=== PATIENT | female | born 1945 | race Caucasian/White ===

== ENCOUNTER → 2017-02-13 | Outpatient (CLI) | payer MEDICARE, OTHER ==
[~2017-02-13] MED LIST: REGADENOSON 0.4 MG/5 ML SYRINGE IV ONE
--- NOTE | 2017-02-13 12:34 | EST ---
DATE OF SERVICE: 02/13/2017 AGE: 72Y SEX: F HT: 5'2" WT: 145 lbs. Protocol Guy: Other: Lexiscan Cardiolite Stage: Dur. of Exercise: *Heart Rate Blood Pressure *Rest: 71 Rest: 130/48 * *Max. Achieved: 99 Maximum BP: 119/50 85% PMHR: 125 100% PMHR: 147 *METS: INDICATIONS: Short of breath and chest pain. MEDICATIONS: Metformin, Januvia. Patient was given Lexiscan injection over a period of 15 seconds. Peak heart rate of 99 was achieved. Maximum blood pressure of 119/50 mmHg was noted. Resting EKG shows normal sinus rhythm with normal NH interval and QRS duration and normal ST-T waves. No ST segment depression suggestive of ischemia is noted. The results of the nuclear study will follow.
--- NOTE | 2017-02-13 13:02 | NM ---
EXAMINATION TYPE: NM stress lexiscan cardiolite DATE OF EXAM: 02/13/2017 10:31 AM COMPARISON: NONE HISTORY: 72-year-old female with chest pain and shortness of breath TECHNIQUE: After the intravenous administration of 9.99 mCi Tc 99m Sestamibi - Cardiolite resting SP ECT images acquired 45 minutes post injection. The patient received 0.4mg Lexiscan, 26.7 mCi Tc 99m Sestamibi - Stress images obtained [address] injection FINDINGS: Review of stress and rest SPECT images demonstrates no distinct perfusion abnormality. Gated analysi s shows normal wall motion with an estimated left ventricular ejection fraction of 63 %. TID is calc ulated at 0.94, within normal limits. IMPRESSION: No scintigraphic evidence for reversible ischemia.
== END | disposition home or self-care (01) ==
LOC: RADNMMAIN 08:01
PROVIDERS: ATTEND Internal Medicine
DX: R07.9 Chest pain, unspecified (principal); R06.02 Shortness of breath
CPT/HCPCS: 93017; 78452; A9500; J2785

== ENCOUNTER → 2018-02-22 | Outpatient (CLI) | payer MEDICARE ==
--- NOTE | 2018-02-23 14:09 | ECHOF ---
Referral Reason:CHF I50 MEASUREMENTS -------- HEIGHT: 157.5 cm WEIGHT: 65.8 kg BP: IVSd: 1.2 cm (0.6 - 1.1) LVIDd: 3.4 cm (3.9 - 5.3) LVPWd: 1.4 cm (0.6 - 1.1) IVSs: 1.7 cm LVIDs: 1.6 cm LVPWs: 1.8 cm LAESV Index (A-L): 18.99 ml/m Ao Diam: 3.4 cm (2.0 - 3.7) AV Cusp: 2.3 cm (1.5 - 2.6) LA Diam: 3.4 cm (2.7 - 3.8) MV EXCURSION: 11.844 mm (> 18.000) MV EF SLOPE: 56 mm/s (70 - 150) EPSS: 0.3 cm MV E Linus: 0.69 m/s MV DecT: 221 ms MV A Linus: 0.86 m/s MV E/A Ratio: 0.79 RAP: 5.00 mmHg RVSP: 29.25 mmHg FINDINGS -------- Sinus rhythm. This was a technically good study. The left ventricular size is normal. There is mild concentric left ventricular hypertrophy. Overa ll left ventricular systolic function is normal with, an EF between 55 - 60 %. The right ventricle is normal in size and function. The left atrium is normal in size. RA appears enlarged. The aortic valve is trileaflet, and appears structurally normal. No aortic stenosis or regurgitation. Mild mitral annular calcification present. Mild mitral regurgitation is present. Moderate tricuspid regurgitation present. Right ventricular systolic pressure is normal at < 35 mmH g. The right ventricular systolic pressure, as measured by Doppler, is 29.25mmHg. There is no pulmonic regurgitation present. The aortic root size is normal. Normal inferior vena cava with normal inspiratory collapse consistent with estimated right atrial pre ssure of 5 mmHg. There is no pericardial effusion. CONCLUSIONS -------- 1. Sinus rhythm. 2. This was a technically good study. 3. The left ventricular size is normal. 4. There is mild concentric left ventricular hypertrophy. 5. Overall left ventricular systolic function is normal with, an EF between 55 - 60 %. 6. The left atrium is normal in size. 7. RA appears enlarged. 8. The aortic valve is trileaflet, and appears structurally normal. No aortic stenosis or regurgitati on. 9. Mild mitral annular calcification present. 10. Mild mitral regurgitation is present. 11. Moderate tricuspid regurgitation present. 12. Right ventricular systolic pressure is normal at < 35 mmHg. 13. There is no pulmonic regurgitation present. 14. The aortic root size is normal. 15. Normal inferior vena cava with normal inspiratory collapse consistent with estimated right atrial pressure of 5 mmHg. 16. There is no pericardial effusion. PRICING ACTUARY: Reyna Martin RDCS
== END | disposition home or self-care (01) ==
LOC: RADECHMAIN 13:19
PROVIDERS: ATTEND Internal Medicine
DX: I08.1 Rheumatic disorders of both mitral and tricuspid valves (principal); I50.9 Heart failure, unspecified
CPT/HCPCS: 93306

== ENCOUNTER 2019-02-26 21:29 | Emergency (ER) | payer MEDICARE, OTHER ==
[2019-02-26 21:56] VITALS: BP 122/67; PULSE 80; RESP 18; TEMP 98.3
[2019-02-26] MEDS ORDERED: FLUORESCEIN STRIPS 1 MG STRIP LEFT EYE ONE (22:00)
[2019-02-26] MEDS ORDERED: PROPARACAINE 0.5% OPHTH DROPS 15 ML BTL LEFT EYE STA (22:00)
--- NOTE | 2019-02-26 22:57 | ED ---
Eye Problem HPI - General Chief complaint: Eye Problems Stated complaint: Eye injury Time Seen by Provider: 02/26/19 22:11 Source: patient, family Mode of arrival: ambulatory Limitations: no limitations - History of Present Illness Initial comments: This is a 74-year-old female with a history of retinal pathology she believes macular degeneration who states she was working in her garden today when she was stuck by sharply to the right eye. She's been having tearing and drainage from the eye since then she denies any over blurry vision or other injury. She states she has been rubbing it a lot since the injury. No other modifying factors. MD chief complaint: eye pain, eye injury - Related Data Home Medications Medication Instructions Recorded Confirmed Aspirin EC [Ecotrin Low Dose] 81 mg PO HS 02/26/19 02/26/19 Cyanocobalamin (Vitamin B-12) 1,000 mcg PO DAILY 02/26/19 02/26/19 [Vitamin B-12] Dulaglutide [Trulicity] 0.75 mg SQ WE 02/26/19 02/26/19 Fluticasone/Salmeterol [Advair 1 inhalation PO BID PRN 02/26/19 02/26/19 500-50 Diskus] Garlic 1 tab PO DAILY 02/26/19 02/26/19 Insulin Detemir (Levemir) [Levemir] 8 unit SQ BID 02/26/19 02/26/19 Magnesium 200 mg PO DAILY 02/26/19 02/26/19 Montelukast [Singulair] 10 mg PO HS 02/26/19 02/26/19 Vitamin E 1,000 unit PO DAILY 02/26/19 02/26/19 [place] Drops 20 drops PO DAILY PRN 02/26/19 metFORMIN HCL 1,000 mg PO BID 02/26/19 02/26/19 Previous Rx's Medication Instructions Recorded Ketorolac 0.5% Ophth Soln [Acular 1 drops RIGHT EYE QID PRN #3 ml 02/26/19 0.5%] Sulfacetamide 10% Ophth Soln 2 drops RIGHT EYE Q8H #3 ml 02/26/19 [Bleph-10] Allergies Allergy/AdvReac Type Severity Reaction Status Date / Time diphenhydramine AdvReac Hallucinati Verified 02/26/19 22:39 [From Benadryl] ons Review of Systems ROS Statement: Those systems with pertinent positive or pertinent negative responses have been documented in the HPI. ROS Other: All systems not noted in ROS Statement are negative. Past Medical History Past Medical History: Asthma, Diabetes Mellitus Additional Past Medical History / Comment(s): eye problems History of Any Multi-Drug Resistant Organisms: None Reported Past Surgical History: Joint Replacement, Orthopedic Surgery Past Psychological History: No Psychological Hx Reported Smoking Status: Former smoker Past Alcohol Use History: Occasional Past Drug Use History: None Reported General Exam - General Exam Comments Initial Comments: This is a well-developed well-nourished awake alert oriented 3 female Limitations: no limitations General appearance: alert, anxious Head exam: Present: atraumatic, normocephalic, normal inspection Eye exam: Present: PERRL, EOMI, other (Patient does have arcus senilis bilaterally examination the right reveals very faint conjunctival injection no gross deformity seen over the cornea no foreign body seen no foreign bodies under lids.) ENT exam: Present: normal exam Neck exam: Present: normal inspection, full ROM Course Vital Signs 02/26/19 21:53 Temperature 98.3 F Pulse Rate 80 Respiratory 18 Rate Blood Pressure 122/67 O2 Sat by Pulse 97 Oximetry Procedures - Procedures Initial comment: I did instill 2 drops of proparacaine in the patient's right eye. I did put fluorescein in the right eye. Examination under Wood lamp reveals very minimal uptake in the mid upper cornea. No foreign body seen. Examination under slit- lamp revealed no evidence of hyphema anterior chamber appears be clear. Medical Decision Making - Medical Decision Making No further workup is indicated this time patient be placed on appropriate medications. She is follow-up with her doctor return when necessary Disposition Clinical Impression: Corneal abrasion, right Disposition: HOME SELF-CARE Condition: Good Instructions (If sedation given, give patient instructions): Corneal Abrasion (DC) Prescriptions: Ketorolac 0.5% Ophth Soln [Acular 0.5%] 1 drops RIGHT EYE QID PRN #3 ml PRN Reason: Pain Sulfacetamide 10% Ophth Soln [Bleph-10] 2 drops RIGHT EYE Q8H #3 ml Is patient prescribed a controlled substance at d/c from ED?: No Referrals: Viki Sweet MD [Primary Care Provider] - 1-2 days
== END 2019-02-26 23:07 | disposition home or self-care (01) ==
LOC: EC 21:29
DX: S05.01XA Injury of conjunctiva and corneal abrasion without foreign body, right eye, initial encounter (principal); J45.909 Unspecified asthma, uncomplicated; E11.9 Type 2 diabetes mellitus without complications; Z79.4 Long term (current) use of insulin; Z79.82 Long term (current) use of aspirin; Z79.899 Other long term (current) drug therapy; Z88.8 Allergy status to other drugs, medicaments and biological substances; Z87.891 Personal history of nicotine dependence; X58.XXXA Exposure to other specified factors, initial encounter
CPT/HCPCS: 99283

== ENCOUNTER 2019-09-03 18:03 | Emergency (ER) | payer MEDICARE, OTHER ==
[2019-09-03] MEDS ORDERED: methylPREDNISolone SOD SUCCI 125 MG/2 ML VIAL IV STA (18:36)
--- NOTE | 2019-09-03 18:55 | ED ---
General Adult HPI - General Source: patient Mode of arrival: ambulatory Limitations: no limitations <Cat Gonzalez - Last Filed: 09/04/19 01:44> <Ashley Mneendez - Last Filed: 09/05/19 14:30> - General Chief complaint: Shortness of Breath Stated complaint: Cough Time Seen by Provider: 09/03/19 18:20 - History of Present Illness Initial comments: 74-year-old female patient presents to the emergency department today for evaluation of cough and shortness of breath. Coughing since . States initially she was coughing up white sputum. Patient states today the cough is turned painful and dry. She denies any fevers with this she has been chilled. She is reporting upper abdominal pain and discomfort while coughing. She is also reporting right upper back pain. She denies any nasal congestion, ear pain, or sore throat. Does have a history of asthma, did do 2 nebulizer breathing treatments today without relief. Has been taking Tessalon Perles given to her by her physician on Thursday. She denies any leg pain or swelling. Denies any recent travel. Patient denies any recent rash, nausea, vomiting, diarrhea, constipation, back pain, numbness, tingling, dizziness, weakness, hematuria, dysuria, urinary urgency, urinary frequency, headache, visual changes, or any other complaints. (Cat Gonzalez) - Related Data Home Medications Medication Instructions Recorded Confirmed Aspirin EC [Ecotrin Low Dose] 81 mg PO HS 02/26/19 02/26/19 Cyanocobalamin (Vitamin B-12) 1,000 mcg PO DAILY 02/26/19 02/26/19 [Vitamin B-12] Dulaglutide [Trulicity] 0.75 mg SQ WE 02/26/19 02/26/19 Fluticasone/Salmeterol [Advair 1 inhalation PO BID PRN 02/26/19 02/26/19 500-50 Diskus] Garlic 1 tab PO DAILY 02/26/19 02/26/19 Insulin Detemir (Levemir) [Levemir] 8 unit SQ BID 02/26/19 02/26/19 Magnesium 200 mg PO DAILY 02/26/19 02/26/19 Montelukast [Singulair] 10 mg PO HS 02/26/19 02/26/19 Vitamin E 1,000 unit PO DAILY 02/26/19 02/26/19 [place] Drops 20 drops PO DAILY PRN 02/26/19 metFORMIN HCL 1,000 mg PO BID 02/26/19 02/26/19 Previous Rx's Medication Instructions Recorded Ketorolac 0.5% Ophth Soln [Acular 1 drops RIGHT EYE QID PRN #3 ml 02/26/19 0.5%] Sulfacetamide 10% Ophth Soln 2 drops RIGHT EYE Q8H #3 ml 02/26/19 [Bleph-10] Ipratropium-Albuterol Nebulize 3 ml INHALATION Q4H PRN #30 neb 09/03/19 [Duoneb 0.5 mg-3 mg/3 ml Soln] guaiFENesin-DM 600/30MG [Mucinex 1 each PO Q12HR #10 tab.er.12h 09/03/19 Dm] predniSONE 50 mg PO DAILY #5 tablet 09/03/19 Allergies Allergy/AdvReac Type Severity Reaction Status Date / Time diphenhydramine AdvReac Hallucinati Verified 02/26/19 22:39 [From Benadryl] ons antihistamines AdvReac Hallucinati Uncoded 09/03/19 18:19 ons Review of Systems ROS Other: All systems not noted in ROS Statement are negative. <Cat Gonzalez - Last Filed: 09/04/19 01:44> ROS Other: All systems not noted in ROS Statement are negative. <Ashley Menendez - Last Filed: 09/05/19 14:30> ROS Statement: Those systems with pertinent positive or pertinent negative responses have been documented in the HPI. Past Medical History Past Medical History: Asthma, Diabetes Mellitus Additional Past Medical History / Comment(s): eye problems History of Any Multi-Drug Resistant Organisms: None Reported Past Surgical History: Joint Replacement, Orthopedic Surgery Additional Past Surgical History / Comment(s): 2 knee replacement Past Psychological History: No Psychological Hx Reported Smoking Status: Former smoker Past Alcohol Use History: Occasional Past Drug Use History: None Reported <Cat Gonzalez - Last Filed: 09/04/19 01:44> General Exam Limitations: no limitations General appearance: alert, in no apparent distress, other (This is a well- developed, well-nourished elderly female patient in no acute distress. Vital signs upon presentation are temperature 98.2F, pulse 84, respirations 18, blood pressure 156/82, pulse ox 97% on room air.) Eye exam: Present: normal appearance, PERRL, EOMI. Absent: scleral icterus, conjunctival injection, periorbital swelling ENT exam: Present: normal exam, normal oropharynx, mucous membranes moist Respiratory exam: Present: normal lung sounds bilaterally. Absent: respiratory distress, wheezes, rales, rhonchi, stridor Cardiovascular Exam: Present: regular rate, normal rhythm, normal heart sounds. Absent: systolic murmur, diastolic murmur, rubs, gallop, clicks GI/Abdominal exam: Present: soft, normal bowel sounds. Absent: distended, tenderness, guarding, rebound, rigid Neurological exam: Present: alert, oriented X3, CN II-XII intact Psychiatric exam: Present: normal affect, normal mood Skin exam: Present: warm, dry, intact, normal color. Absent: rash <Cat Gonzalez - Last Filed: 09/04/19 01:44> Course Vital Signs 09/03/19 09/03/19 09/03/19 18:16 18:43 19:18 Temperature 98.2 F Pulse Rate 84 71 Respiratory 18 18 19 Rate Blood Pressure 156/82 139/60 O2 Sat by Pulse 97 96 Oximetry 09/03/19 09/03/19 20:23 21:08 Temperature 97.8 F Pulse Rate 69 81 Respiratory 18 19 Rate Blood Pressure 120/59 144/75 O2 Sat by Pulse 99 97 Oximetry EKG Findings - EKG Comments: EKG Findings:: EKG obtained at 1856 shows normal sinus rhythm with a ventricular rate is 77, VT interval 162, QRS duration 92, QT 370, QTC 418. No evidence of ST elevation or depression. <Cat Gonzalez - Last Filed: 09/04/19 01:44> Medical Decision Making - Lab Data Result diagrams: 09/03/19 19:05 09/03/19 19:05 - Radiology Data Radiology results: report reviewed, image reviewed <Cat Gonzalez - Last Filed: 09/04/19 01:44> - Lab Data Result diagrams: 09/03/19 19:05 09/03/19 19:05 <Ashley Menendez - Last Filed: 09/05/19 14:30> - Medical Decision Making 74-year-old female patient presents to the emergency department today for evalu ation of cough worsening symptoms . Physical examination reveals clear equal lung sounds. Vital signs are reassuring with oxygen saturation 99%. Chest x-ray showed no acute cardiopulmonary process. Labs came back and did have elevated d-dimer. CT angiography of the chest was obtained and showed inflammatory changes but no evidence for pulmonary embolism. I did discuss findings and results with the patient. We'll treat for acute bronchitis with steroid burst and Mucinex DM. She is instructed to follow-up with her primary care physician for recheck in 1-2 days. Return parameters were discussed in detail. She verbalizes understanding and agrees with this plan. (Cat Gonzalez) I was available for consultation in the emergency department. The history and physical exam were done by the midlevel provider. I was consulted for this patients care. I reviewed the case with the midlevel provider and based on their presentation of the patient, I agree with the assessment, medical decision making and plan of care as documented. Chart was dictated using [employer] dictation software. Attempts were made to correct any dictation errors however some typographical errors may persist. (Ashley Menendez) - Lab Data Lab Results 09/03/19 09/03/19 09/03/19 Range/Units 19:05 19:05 19:05 WBC 4.5 (3.8-10.6) k/uL RBC 4.14 (3.80-5.40) m/uL Hgb 11.8 (11.4-16.0) gm/dL Hct 35.9 (34.0-46.0) % MCV 86.8 (80.0-100.0) fL MCH 28.5 (25.0-35.0) pg MCHC 32.8 (31.0-37.0) g/dL RDW 15.5 (11.5-15.5) % Plt Count 262 (150-450) k/uL Neutrophils % 48 % Lymphocytes % 34 % Monocytes % 9 % Eosinophils % 5 % Basophils % 1 % Neutrophils # 2.2 (1.3-7.7) k/uL Lymphocytes # 1.6 (1.0-4.8) k/uL Monocytes # 0.4 (0-1.0) k/uL Eosinophils # 0.2 (0-0.7) k/uL Basophils # 0.0 (0-0.2) k/uL PT (9.0-12.0) sec INR (<1.2) APTT (22.0-30.0) sec D-Dimer (<0.60) mg/L FEU Sodium 138 (137-145) mmol/L Potassium 3.6 (3.5-5.1) mmol/L Chloride 108 H (98-107) mmol/L Carbon Dioxide 23 (22-30) mmol/L Anion Gap 7 mmol/L BUN 12 (7-17) mg/dL Creatinine 0.80 (0.52-1.04) mg/dL Est GFR (CKD-EPI)AfAm 84 (>60 ml/min/1.73 sqM) Est GFR (CKD-EPI)NonAf 73 (>60 ml/min/1.73 sqM) Glucose 109 H (74-99) mg/dL Calcium 8.6 (8.4-10.2) mg/dL Total Bilirubin 0.4 (0.2-1.3) mg/dL AST 29 (14-36) U/L ALT 18 (4-34) U/L Alkaline Phosphatase 88 (38-126) U/L Troponin I <0.012 (0.000-0.034) ng/mL Total Protein 6.4 (6.3-8.2) g/dL Albumin 3.7 (3.5-5.0) g/dL 09/03/19 Range/Units 19:30 WBC (3.8-10.6) k/uL RBC (3.80-5.40) m/uL Hgb (11.4-16.0) gm/dL Hct (34.0-46.0) % MCV (80.0-100.0) fL MCH (25.0-35.0) pg MCHC (31.0-37.0) g/dL RDW (11.5-15.5) % Plt Count (150-450) k/uL Neutrophils % % Lymphocytes % % Monocytes % % Eosinophils % % Basophils % % Neutrophils # (1.3-7.7) k/uL Lymphocytes # (1.0-4.8) k/uL Monocytes # (0-1.0) k/uL Eosinophils # (0-0.7) k/uL Basophils # (0-0.2) k/uL PT 9.6 (9.0-12.0) sec INR 0.9 (<1.2) APTT 23.5 (22.0-30.0) sec D-Dimer 0.66 H (<0.60) mg/L FEU Sodium (137-145) mmol/L Potassium (3.5-5.1) mmol/L Chloride (98-107) mmol/L Carbon Dioxide (22-30) mmol/L Anion Gap mmol/L BUN (7-17) mg/dL Creatinine (0.52-1.04) mg/dL Est GFR (CKD-EPI)AfAm (>60 ml/min/1.73 sqM) Est GFR (CKD-EPI)NonAf (>60 ml/min/1.73 sqM) Glucose (74-99) mg/dL Calcium (8.4-10.2) mg/dL Total Bilirubin (0.2-1.3) mg/dL AST (14-36) U/L ALT (4-34) U/L Alkaline Phosphatase (38-126) U/L Troponin I (0.000-0.034) ng/mL Total Protein (6.3-8.2) g/dL Albumin (3.5-5.0) g/dL - Radiology Data Two-view x-ray of the chest is obtained. Report was reviewed in its entirety. Impression by Dr. Barnes shows no active cardiopulmonary disease. Normal heart. CT angiography of the chest is obtained. Report was reviewed in its entirety. Impression by Dr. Barnes shows no evidence of pulmonary embolism. Mild bronchial adenopathy consistent with inflammatory disease. Minimal pulmonary fibrotic changes. No suspicious pulmonary mass. (Cat Gonzalez) Disposition Is patient prescribed a controlled substance at d/c from ED?: No Time of Disposition: 20:52 <Cat Gonzalez - Last Filed: 09/04/19 01:44> <Ashley Menendez - Last Filed: 09/05/19 14:30> Clinical Impression: Acute bronchitis Disposition: HOME SELF-CARE Condition: Good Instructions (If sedation given, give patient instructions): Acute Bronchitis (ED) Additional Instructions: Increase fluids. Increase breathing treatments every 4 hours. Take medications as directed. Follow-up through primary care physician for recheck in 1-2 days. Prescriptions: Ipratropium-Albuterol Nebulize [Duoneb 0.5 mg-3 mg/3 ml Soln] 3 ml INHALATION Q4H PRN #30 neb PRN Reason: Wheezing/Shortness of breath guaiFENesin-DM 600/30MG [Mucinex Dm] 1 each PO Q12HR #10 tab.er.12h predniSONE 50 mg PO DAILY #5 tablet Referrals: Viki Sweet MD [Primary Care Provider] - 1-2 days
[2019-09-03 19:22] LABS: Basophils % (A) 1 %; Eosinophils # (A) 0.2 k/uL (0-0.7); Eosinophils % (A) 5 %; HCT 35.9 % (34.0-46.0); HGB 11.8 gm/dL (11.4-16.0); Lymphocytes # (A) 1.6 k/uL (1.0-4.8); Lymphocytes % (A) 34 %; MCH 28.5 pg (25.0-35.0); MCHC 32.8 g/dL (31.0-37.0); MCV 86.8 fL (80.0-100.0); Monocytes # (A) 0.4 k/uL (0-1.0); Monocytes % (A) 9 %; Neutrophils # (A) 2.2 k/uL (1.3-7.7); Neutrophils % (A) 48 %; Platelet Count 262 k/uL (150-450); RBC 4.14 m/uL (3.80-5.40); RDW 15.5 % (11.5-15.5); WBC 4.5 k/uL (3.8-10.6)
[2019-09-03 19:37] LABS: Albumin 3.7 g/dL (3.5-5.0); Calcium 8.6 mg/dL (8.4-10.2); Potassium 3.6 mmol/L (3.5-5.1); Total Bilirubin 0.4 mg/dL (0.2-1.3); Total Protein 6.4 g/dL (6.3-8.2)
--- NOTE | 2019-09-03 19:44 | XR ---
EXAMINATION TYPE: XR chest 2V DATE OF EXAM: 09/03/2019 COMPARISON: NONE HISTORY: Cough TECHNIQUE: 2 views FINDINGS: Heart is normal. Lungs are clear of infiltrate. There is no pleural effusion. Thoracic aort a is atheromatous. Bony thorax is intact. IMPRESSION: No active cardiopulmonary disease. Normal heart.
[2019-09-03 19:59] LABS: INR 0.9 (<1.2); Partial Thromboplastin Time 23.5 sec (22.0-30.0); Prothrombin Time 9.6 sec (9.0-12.0)
[2019-09-03 20:00] LABS: D-Dimer 0.66 mg/L FEU (<0.60)
--- NOTE | 2019-09-03 20:30 | CT ---
EXAMINATION TYPE: CT chest angio for PE DATE OF EXAM: 09/03/2019 COMPARISON: None HISTORY: Chest pain, cough causing SOB. Pt hx asthma. CT DLP: 305.9 mGycm Automated exposure control for dose reduction was used. CONTRAST: Performed with IV Contrast, patient injected with 100 mL of Isovue 370. Multiple axial sections were obtained from the thoracic inlet to the diaphragm with intravenous contr ast. There are 3-D post processed images. Heart size is fairly normal. There is no pericardial effusion. There is no pleural effusion. There is mild subsegmental atelectasis and scarring in both lungs. There is a minimal subpleural reticular in filtrate in the superior segment right lower lobe. There is normal contrast opacification of the pulmonary arteries. There are a few bilateral bronchial lymph nodes that measure up to 1.5 cm. I see no filling defects in the pulmonary arteries. There is no mediastinal adenopathy. Thoracic aorta shows no aneurysm or dissection. The bony thorax appears in tact. IMPRESSION: No evidence of pulmonary embolism. Mild bronchial adenopathy consistent with inflammatory disease. Mi nimal pulmonary fibrotic changes. No suspicious pulmonary mass.
[2019-09-03 21:10] VITALS: BP 144/75; PULSE 81; RESP 19; TEMP 97.8
== END 2019-09-03 21:11 | disposition home or self-care (01) ==
LOC: EC 18:03
DX: J20.9 Acute bronchitis, unspecified (principal); R79.1 Abnormal coagulation profile; R93.89 Abnormal findings on diagnostic imaging of other specified body structures; R10.10 Upper abdominal pain, unspecified; M54.6 Pain in thoracic spine; J45.909 Unspecified asthma, uncomplicated; E11.9 Type 2 diabetes mellitus without complications; Z87.891 Personal history of nicotine dependence; Z88.8 Allergy status to other drugs, medicaments and biological substances; Z79.4 Long term (current) use of insulin; Z79.82 Long term (current) use of aspirin; Z79.899 Other long term (current) drug therapy; Z96.659 Presence of unspecified artificial knee joint
CPT/HCPCS: 36415; 93005; 85379; 80053; 84484; 85025; 85610; 85730; 71046; 71275; 99285; 96374; J2930; Q9967

== ENCOUNTER → 2019-10-25 | Outpatient (CLI) | payer MEDICARE, OTHER ==
[2019-10-25 17:27] LABS: HCT 40.2 % (34.0-46.0); HGB 12.7 gm/dL (11.4-16.0); MCH 28.4 pg (25.0-35.0); MCHC 31.5 g/dL (31.0-37.0); MCV 90.1 fL (80.0-100.0); Platelet Count 379 k/uL (150-450); RBC 4.46 m/uL (3.80-5.40); RDW 15.6 % (11.5-15.5); WBC 9.5 k/uL (3.8-10.6)
== END | disposition home or self-care (01) ==
LOC: LABPAT 16:42
PROVIDERS: ATTEND Surgery
DX: Z01.812 Encounter for preprocedural laboratory examination (principal)
CPT/HCPCS: 85027

== ENCOUNTER 2019-10-26 11:22 | Inpatient (IN) | payer MEDICARE, OTHER ==
[2019-10-24 18:06] VITALS: BMI 27.8
[~2019-10-26 11:22] MED LIST changes: +DEXAMETHASONE SOD PHOSPHATE 10 MG/ML 1 ML VIAL IV ONE; +HEPARIN SODIUM,PORCINE 5,000 UNIT/ML 1 ML VIAL SQ ONE; +HYDROmorphone 0.5 MG/0.5 ML SYRINGE IVP PRN; +LIDOCAINE 1% 20 ML VIAL (10MG/ML) FOR IV START INTRADERMA PRN; +MIDAZOLAM 2 MG/2 ML VIAL IV PRN; +ONDANSETRON 4 MG/2 ML VIAL IVP ONE; -REGADENOSON 0.4 MG/5 ML SYRINGE IV ONE; +SCOPOLAMINE 1.5MG/72HR PATCH TRANSDERM ONE
[2019-10-26] MEDS: LACTATED RINGERS 1,000 ML IV SCH (12:09)
[2019-10-26 12:12] LABS: Glucose,Whole Blood 113 mg/dL (75-99)
--- NOTE | 2019-10-26 12:57 | P.ANPRN ---
Procedure Note - Anesthesia - Nerve Block Performed Bilateral Rectus Abdominis Single Time Out Performed: Yes Date of Procedure: 10/26/19 Procedure Start Time: 12:28 Procedure Stop Time: 12:43 Location of Patient: PreOp Indication: Acute Post-Operative Pain, Requested by Surgeon Specifically requested for management of pain by DrVitor: Long Akhtar Sedation Type: Sedate with meaningful contact maintained Preparation: Sterile Prep Position: Supine Needle Types: Pajunk Needle Gauge: 21 Ultrasound used to visualize needle placement: Yes Ultrasound used to observe medication spread: Yes Injectate: 0.5% Ropivacaine (see comment for volume) Adjunct: Epinephrine (see comment for dilution ratio) Blood Aspirated: No Pain Paresthesia on Injection Noted: No Resistance on Injection: Normal Image Stored and Saved: Yes (Medicine injected with direct visualization under ultrasound guidance) Events: Uneventful and Well Tolerated (0.5% Ropiviane 20cc 1% Lidocaine with Epi 5cc Dexamethasone 4mg)
--- NOTE | 2019-10-26 15:00 | P.GSHP ---
History of Present Illness H&P Date: 10/26/19 Chief Complaint: Umbilical hernia 74-year-old female who's of umbilical hernia. Patient rents today for laparoscopic robotic-assisted repair. Patient also has a small abdominal wall mass in the left lower quadrant. This will be laparoscopically examined.. Past Medical History Past Medical History: Asthma, Cancer, CVA/TIA, Diabetes Mellitus, Eye Disorder, Osteoarthritis (OA) Additional Past Medical History / Comment(s): Hx cervical cancer 30 yrs ago, laser surgery. Diabetic retinopathy. Hx CVA - undiagnosed 2 yrs ago. Poor balance. History of Any Multi-Drug Resistant Organisms: None Reported Past Surgical History: Joint Replacement Additional Past Surgical History / Comment(s): Bilateral knee replacements. Past Anesthesia/Blood Transfusion Reactions: No Reported Reaction, Motion Sickness Past Psychological History: Anxiety Smoking Status: Former smoker Past Alcohol Use History: Occasional Additional Past Alcohol Use History / Comment(s): Quit smoking in 1972. Past Drug Use History: None Reported - Past Family History Sister(s) Family Medical History: Cancer Additional Family Medical History / Comment(s): Breast cancer. Medications and Allergies Home Medications Medication Instructions Recorded Confirmed Type Aspirin EC [Ecotrin Low Dose] 81 mg PO HS 02/26/19 10/26/19 History metFORMIN HCL 1,000 mg PO BID 02/26/19 10/26/19 History Cholecalciferol [Vitamin D3 (25 1,000 unit PO DAILY 10/24/19 10/26/19 History Mcg = 1000 Iu)] Dulaglutide [Trulicity] 1.5 mg SQ TU 10/24/19 10/26/19 History Ferrous Sulfate [Feosol] 325 mg PO DAILY 10/24/19 10/26/19 History Insulin Glargine [Lantus] 10 unit SQ BID 10/24/19 10/26/19 History [place]-3 Fatty Acids/Fish Oil [Fish 1 each PO DAILY 10/24/19 10/26/19 History Oil 1,000 mg Softgel] Tiotropium 18 Mcg/Puff [Spiriva] 1 puff INHALATION QAM 10/24/19 10/26/19 History Allergies Allergy/AdvReac Type Severity Reaction Status Date / Time diphenhydramine AdvReac Hallucinati Verified 10/26/19 11:55 [From Benadryl] ons antihistamines AdvReac Hallucinati Uncoded 10/26/19 11:55 ons Surgical - Exam Vital Signs Temp Pulse Resp BP Pulse Ox 98.4 F 95 18 119/71 97 10/26/19 12:00 10/26/19 12:00 10/26/19 12:00 10/26/19 12:00 10/26/19 12:00 - General well developed, well nourished, no distress - Eyes PERRL - ENT normal pinna - Neck no masses - Respiratory normal expansion - Cardiovascular Rhythm: regular - Abdomen Abdomen: soft, non tender Hernia: umbilical Results - Labs Abnormal Lab Results - Last 24 Hours (Table) 10/26/19 Range/Units 12:10 POC Glucose (mg/dL) 113 H (75-99) mg/dL Assessment and Plan Assessment: Umbilical hernia. We'll perform laparoscopic robotic-assisted repair.
[2019-10-26] MEDS ORDERED: fentaNYL (PF) 50 MCG/ML 2 ML AMP ONE (15:06)
[2019-10-26] MEDS ORDERED: ROPIVACAINE 5 MG/ML 30 ML VIAL ONE (15:06)
[2019-10-26] MEDS ORDERED: SUCCINYLCHOLINE CHLORIDE 100 MG/5 ML SYR IV ONE (15:06)
[2019-10-26] MEDS ORDERED: ROCURONIUM BROMIDE 10 MG/ML 10 ML VIAL IV ONE (15:06)
[2019-10-26] MEDS ORDERED: GLYCOPYRROLATE 0.2 MG/ML 2 ML VIAL ONE (15:06)
[2019-10-26] MEDS ORDERED: NEOSTIGMINE 1 MG/ML 10 ML VIAL ONE (15:06)
[2019-10-26] MEDS ORDERED: PROPOFOL 10 MG/ML 20 ML VIAL IV ONE (15:06)
[2019-10-26] MEDS ORDERED: LIDOCAINE 1% INJ 10MG/ML (20 ML MDV) ONE (15:06)
[2019-10-26] MEDS ORDERED: KETAMINE 10 MG/ML 20 ML VIAL ONE (15:06)
[2019-10-26] MEDS ORDERED: BUPIVACAINE (PF) 0.25% 30 ML VIAL SQ ONE (15:31)
--- NOTE | 2019-10-26 16:25 | P.OP ---
Date of Procedure: 10/26/19 Preoperative Diagnosis: Incarcerated umbilical hernia Postoperative Diagnosis: Periumbilical hernia Left lower quadrant abdominal wall lipoma Procedure(s) Performed: Laparoscopic robotic-assisted repair of incarcerated we'll hernia Excision of left lower quadrant lipoma Partial omentectomy Anesthesia: OZIEL Surgeon: Long Akhtar Estimated Blood Loss (ml): 10 Pathology: other (Abdominal wall lipoma, omentum) Condition: stable Disposition: PACU Description of Procedure: TThe patient was placed on the operating table in the supine position. He received general anesthesia. His abdomen was prepped and draped usual fashion. Using a 5 mm optical trocar under direct visualization the peritoneal cavity was entered in the left upper quadrant. The abdomen was then insufflated. The laparoscope was placed back into the perineal cavity. Next a 8 mm robotic trocar was placed in the left lower quadrant and a 12 mm robotic trocar was placed in the left lateral position. The original 5 mm trocar was exchanged for a 8 mm robotic trocar. The patient's placed in the left side up position. And the patient was undocked the robot. The umbilical hernia was visualized. Using hook cautery the peritoneum over the umbilical hernia was excised. The incarcerated omentum was dissected free and sent to pathology. The fascial opening was repaired using 0V LOC suture. Next a piece of 11 cm round ventral light ST mesh was placed into the. Cavity and secured with 2 OV lock suture. The patient had a 2 cm lipoma located left lower quadrant. The skin was incised over this lipoma was dissected using cautery and sent to pathology. The lipoma was examined. There is no evidence of any hernia in the area. The specimens of pathology. The patient was undocked the robot. The needles were retrieved. The fascia of the 12 mm trocar site was closed with 0 Ethibond suture. Skin was closed interrupted 3-0 Monocryl suture. Dermabond dressings was applied. Patient top procedure well and was sent to recovery room stable condition.
[2019-10-26] MEDS ORDERED: LACTATED RINGERS 1,000 ML IV ONE ×2 (16:49→18:36)
[2019-10-26] MEDS ORDERED: ONDANSETRON 4 MG/2 ML VIAL IVP ONE (17:00)
[2019-10-26 17:07] LABS: Glucose,Whole Blood 199 mg/dL (75-99)
[2019-10-26] MEDS ORDERED: NALOXONE 0.4 MG/ML 1 ML VIAL IV PRN (18:36)
[2019-10-26] MEDS ORDERED: HYDROmorphone 0.5 MG/0.5 ML SYRINGE IVP PRN (18:36)
[2019-10-26] MEDS ORDERED: HYDROcodone/APAP 5-325MG 1 EACH TAB PO PRN (18:36)
[2019-10-26] MEDS: ONDANSETRON 4 MG/2 ML VIAL IVP PRN (20:36)
[2019-10-26 20:54] LABS: Glucose,Whole Blood 213 mg/dL (75-99)
[2019-10-27] MEDS: LACTATED RINGERS 1,000 ML IV SCH (02:09)
[2019-10-27] MEDS: ONDANSETRON 4 MG/2 ML VIAL IVP PRN (04:22)
[2019-10-27 06:50] LABS: Glucose,Whole Blood 175 mg/dL (75-99)
[2019-10-27] MEDS ORDERED: METOCLOPRAMIDE 5 MG/ML 2 ML VIAL IVP PRN (08:08)
[2019-10-27] MEDS ORDERED: ONDANSETRON 4 MG/2 ML VIAL IVP STA (08:08)
[2019-10-27] MEDS ORDERED: KETOROLAC 30 MG/ML 1 ML VIAL IVP PRN (08:42)
[2019-10-27] MEDS ORDERED: SODIUM CHLORIDE 0.9% 500 ML 500 ML IV ONE (10:25)
[2019-10-27] MEDS: ENOXAPARIN 40 MG/0.4 ML SYRINGE SQ SCH (10:26)
--- NOTE | 2019-10-27 10:27 | P.PN ---
Subjective Progress Note Date: 10/27/19 CHIEF COMPLAINT: Incarcerated umbilical hernia HISTORY OF PRESENT ILLNESS: 74-year-old female who underwent laparoscopic robotic-assisted repair of incarcerated umbilical hernia, excision of left lower quadrant lipoma, and partial omentectomy with Dr. Akhtar. Postop day #1. Patient examined this morning the bedside. Patient states she had a rough night. She states she has been nauseous and dry heaving. Pain is controlled at the time of examination. PHYSICAL EXAM: VITAL SIGNS: Reviewed. GENERAL: Well-developed in no acute distress. HEENT: No sclera icterus. Extraocular movements grossly intact. Moist buccal mucosa. Head is atraumatic, normocephalic. ABDOMEN: Soft. Nondistended. Surgical sites clean and intact without drainage. Appropriate surgical tenderness. NEUROLOGIC: Alert and oriented. Cranial nerves II through XII grossly intact. ASSESSMENT: 1. Incarcerated umbilical hernia, s/p laparoscopic robotic-assisted repair of incarcerated umbilical hernia, excision of left lower quadrant lipoma, and partial omentectomy PLAN: Continue Zofran. Add scheduled Reglan Continue IV fluids 500cc fluid bolus Pain control. Avoid narcotics if possible as it may be contributing to patient's nausea. Will trial low-dose Toradol Decrease diet to clear liquids Nurse practitioner note has been reviewed by physician. Signing provider agrees with the documented findings, assessment, and plan of care. Objective - Vital Signs Vital signs: Vital Signs Temp 98.3 F 10/27/19 07:00 Pulse 110 H 10/27/19 08:15 Resp 18 10/27/19 08:15 BP 160/94 10/27/19 08:15 Pulse Ox 95 10/27/19 08:15 Intake & Output 10/26/19 10/27/19 10/27/19 18:59 06:59 18:59 Intake Total 1400 300 Output Total 5 Balance 1395 300 Weight 67.9 kg Intake: IV 1400 Intake, IV Titration 300 Amount Lactated Ringers 1,000 ml 300 @ 100 mls/hr IV .Q10H ONE Rx#:[id number] Output: Estimated Blood Loss 5 Other: Voiding Method Bedside Commode Bedside Commode # Voids 4 4 - Labs Labs: Abnormal Lab Results - Last 24 Hours (Table) 10/26/19 10/26/19 10/26/19 Range/Units 12:10 17:03 20:52 POC Glucose (mg/dL) 113 H 199 H 213 H (75-99) mg/dL 10/27/19 Range/Units 06:48 POC Glucose (mg/dL) 175 H (75-99) mg/dL
[2019-10-27] MEDS: SODIUM CHLORIDE 0.9% 1,000 ML IV SCH ×2 (10:39→21:40)
[2019-10-27 11:29] LABS: Basophils # (A) 0.1 k/uL (0-0.2); Basophils % (A) 1 %; Eosinophils # (A) 0.1 k/uL (0-0.7); Eosinophils % (A) 1 %; HCT 35.4 % (34.0-46.0); HGB 11.6 gm/dL (11.4-16.0); Lymphocytes # (A) 1.1 k/uL (1.0-4.8); Lymphocytes % (A) 11 %; MCH 29.3 pg (25.0-35.0); MCHC 32.7 g/dL (31.0-37.0); MCV 89.5 fL (80.0-100.0); Mean Platelet Volume 7.7; Monocytes # (A) 0.6 k/uL (0-1.0); Monocytes % (A) 6 %; Neutrophils # (A) 8.2 k/uL (1.3-7.7); Neutrophils % (A) 81 %; Platelet Count 318 k/uL (150-450); RBC 3.95 m/uL (3.80-5.40); RDW 15.7 % (11.5-15.5); WBC 10.1 k/uL (3.8-10.6)
[2019-10-27 11:31] LABS: Glucose,Whole Blood 209 mg/dL (75-99)
[2019-10-27 11:47] LABS: African American GFR (CKD) >90 (>60 ml/min/1.73 sqM); Anion Gap 7 mmol/L; Blood Urea Nitrogen 12 mg/dL (7-17); Calcium 8.4 mg/dL (8.4-10.2); Carbon Dioxide 26 mmol/L (22-30); Chloride 99 mmol/L (98-107); Glucose 191 mg/dL (74-99); Magnesium 1.7 mg/dL (1.6-2.3); Non-African American GFR(CKD) 89 (>60 ml/min/1.73 sqM); Sodium 132 mmol/L (137-145)
[2019-10-27] MEDS: METOCLOPRAMIDE 5 MG/ML 2 ML VIAL IVP SCH ×2 (14:47→18:18)
[2019-10-27] MEDS: MAGNESIUM SULFATE-D5W PMX 1 GM in DEXTROSE/WATER 1 100ML.BAG IVPB SCH ×2 (14:48→16:01)
[2019-10-27 17:33] LABS: Glucose,Whole Blood 168 mg/dL (75-99)
[2019-10-28] MEDS: METOCLOPRAMIDE 5 MG/ML 2 ML VIAL IVP SCH ×2 (01:01→05:23)
[2019-10-28 07:01] LABS: Glucose,Whole Blood 120 mg/dL (75-99)
[2019-10-28 07:13] VITALS: BP 125/67; RESP 16; TEMP 97.8
[2019-10-28 08:34] VITALS: PULSE 100
[2019-10-28 08:51] LABS: Basophils % (A) 0 %; Eosinophils # (A) 0.2 k/uL (0-0.7); Eosinophils % (A) 3 %; HCT 37.7 % (34.0-46.0); HGB 12.2 gm/dL (11.4-16.0); Lymphocytes # (A) 1.3 k/uL (1.0-4.8); Lymphocytes % (A) 18 %; MCH 28.9 pg (25.0-35.0); MCHC 32.3 g/dL (31.0-37.0); MCV 89.3 fL (80.0-100.0); Mean Platelet Volume 7.2; Monocytes # (A) 0.5 k/uL (0-1.0); Monocytes % (A) 7 %; Neutrophils # (A) 5.4 k/uL (1.3-7.7); Neutrophils % (A) 71 %; Platelet Count 358 k/uL (150-450); RBC 4.22 m/uL (3.80-5.40); RDW 15.3 % (11.5-15.5); WBC 7.6 k/uL (3.8-10.6)
[2019-10-28 09:08] LABS: African American GFR (CKD) >90 (>60 ml/min/1.73 sqM); Anion Gap 7 mmol/L; Blood Urea Nitrogen 8 mg/dL (7-17); Calcium 8.4 mg/dL (8.4-10.2); Carbon Dioxide 27 mmol/L (22-30); Chloride 105 mmol/L (98-107); Glucose 121 mg/dL (74-99); Non-African American GFR(CKD) 86 (>60 ml/min/1.73 sqM); Potassium 3.9 mmol/L (3.5-5.1); Sodium 139 mmol/L (137-145)
[2019-10-28] MEDS: ENOXAPARIN 40 MG/0.4 ML SYRINGE SQ SCH (09:25)
--- NOTE | 2019-10-28 10:37 | P.DS ---
Providers Date of admission: 10/28/19 09:51 Expected date of discharge: 10/28/19 Attending physician: Long Akhtar Primary care physician: Viki Sweet [facility] Course: 74-year-old female who underwent laparoscopic robotic-assisted repair of incarcerated umbilical hernia, excision of left lower quadrant lipoma, and partial omentectomy with Dr. Akhtar. Patient was admitted postop early secondary to nausea and dry heaves. Patient received IV hydration and antiemetics. Her nausea and vomiting has resolved. Her pain is controlled on oral medications. She is tolerating diet. Vital signs stable. She is stable for discharge home today. Please see EMR for further hospital course details. DC Diagnosis: 1. Incarcerated umbilical hernia, s/p laparoscopic robotic-assisted repair of incarcerated umbilical hernia, excision of left lower quadrant lipoma, and partial omentectomy Nurse practitioner note has been reviewed by physician. Signing provider agrees with the documented findings, assessment, and plan of care. Patient Condition at Discharge: Stable Plan - Discharge Summary Discharge Rx Participant: Yes New Discharge Prescriptions: New Docusate [Colace] 100 mg PO BID #20 capsule HYDROcodone/APAP 5-325MG [Dubois 5-325] 1 tab PO Q6HR PRN #10 tab PRN Reason: Pain No Action metFORMIN HCL 1,000 mg PO BID Aspirin EC [Ecotrin Low Dose] 81 mg PO HS Tiotropium 18 Mcg/Puff [Spiriva] 1 puff INHALATION QAM Insulin Glargine [Lantus] 10 unit SQ BID Ferrous Sulfate [Feosol] 325 mg PO DAILY Cholecalciferol [Vitamin D3 (25 Mcg = 1000 Iu)] 1,000 unit PO DAILY [place]-3 Fatty Acids/Fish Oil [Fish Oil 1,000 mg Softgel] 1 each PO DAILY Dulaglutide [Trulicity] 1.5 mg SQ TU Discharge Medication List Aspirin EC [Ecotrin Low Dose] 81 mg PO HS 02/26/19 [History] metFORMIN HCL 1,000 mg PO BID 02/26/19 [History] Cholecalciferol [Vitamin D3 (25 Mcg = 1000 Iu)] 1,000 unit PO DAILY 10/24/19 [History] Dulaglutide [Trulicity] 1.5 mg SQ TU 10/24/19 [History] Ferrous Sulfate [Feosol] 325 mg PO DAILY 02/03/20 [History] Insulin Glargine [Lantus] 10 unit SQ BID 10/24/19 [History] [place]-3 Fatty Acids/Fish Oil [Fish Oil 1,000 mg Softgel] 1 each PO DAILY 10/24/19 [History] Tiotropium 18 Mcg/Puff [Spiriva] 1 puff INHALATION QAM 10/24/19 [History] Docusate [Colace] 100 mg PO BID #20 capsule 10/26/19 [Rx] HYDROcodone/APAP 5-325MG [Dubois 5-325] 1 tab PO Q6HR PRN #10 tab 10/26/19 [Rx] Follow up Appointment(s)/Referral(s): Long Akhtar MD [STAFF PHYSICIAN] - 11/03/19 2:10 pm Patient Instructions/Handouts: *Surgery [facility] - (Anesthesia) Discharge Instructions Outpatient Surgery, Umbilical Hernia Repair (DC) Activity/Diet/Wound Care/Special Instructions: No driving while taking [place] No lifting over 10 pounds You may shower. No soaking or tub baths Very light activity until you are reevaluated at your follow up appointment with your surgeon
[2019-10-28 11:23] LABS: Glucose,Whole Blood 126 mg/dL (75-99)
== END 2019-10-28 12:36 | disposition home or self-care (01) | DRG 354 ==
LOC: OR 11:22 → 4SSUR 16:02 → OR 10-28 09:58
PROVIDERS: ADMIT Surgery; ATTEND Surgery
PROC: 0DBU4ZZ Excision of Omentum, Percutaneous Endoscopic Approach (ICD-10-PCS; 2019-10-26)
PROC: 8E0W4CZ Robotic Assisted Procedure of Trunk Region, Percutaneous Endoscopic Approach (ICD-10-PCS; 2019-10-26)
PROC: 0JB83ZZ Excision of Abdomen Subcutaneous Tissue and Fascia, Percutaneous Approach (ICD-10-PCS; 2019-10-26)
PROC: 0WQF4ZZ Repair Abdominal Wall, Percutaneous Endoscopic Approach (ICD-10-PCS; principal; 2019-10-26 13:00)
DX: K91.0 Vomiting following gastrointestinal surgery (principal); K42.0 Umbilical hernia with obstruction, without gangrene; J45.909 Unspecified asthma, uncomplicated; M19.90 Unspecified osteoarthritis, unspecified site; E11.319 Type 2 diabetes mellitus with unspecified diabetic retinopathy without macular edema; Z96.653 Presence of artificial knee joint, bilateral; F41.9 Anxiety disorder, unspecified; D17.9 Benign lipomatous neoplasm, unspecified; Z79.4 Long term (current) use of insulin; Z79.82 Long term (current) use of aspirin; Z79.899 Other long term (current) drug therapy; Z85.41 Personal history of malignant neoplasm of cervix uteri; Z86.73 Personal history of transient ischemic attack (TIA), and cerebral infarction without residual deficits; Z98.890 Other specified postprocedural states; Z87.891 Personal history of nicotine dependence; Z88.8 Allergy status to other drugs, medicaments and biological substances; Z80.3 Family history of malignant neoplasm of breast
CPT/HCPCS: 64488; 80048; 83735; 85025; 88304; 88305

== ENCOUNTER 2021-05-19 11:59 | Observation (INO) | payer MEDICARE, OTHER ==
--- NOTE | 2021-05-19 12:27 | ED ---
General Adult HPI - General Chief complaint: Shortness of Breath Stated complaint: SOB Time Seen by Provider: 05/19/21 12:10 Source: patient, RN notes reviewed Mode of arrival: wheelchair Limitations: no limitations - History of Present Illness Initial comments: Patient is a pleasant 76-year-old female presenting to the emergency department with concerns for difficulty breathing. Onset of symptoms was this morning. Patient has had some mild leg swelling that is slightly worse than normal. Patient has chronic cough, unchanged. Dyspnea does worsen with exertion. No chest pain. No fevers. Patient did take her asthma inhaler without improvement of symptoms. - Related Data Home Medications Medication Instructions Recorded Confirmed Aspirin EC [Ecotrin Low Dose] 81 mg PO HS 02/26/19 05/19/21 metFORMIN HCL [Glucophage] 1,000 mg PO BID 02/26/19 05/19/21 Cholecalciferol [Vitamin D3 (25 1,000 unit PO DAILY 10/24/19 05/19/21 Mcg = 1000 Iu)] Insulin Glargine [Lantus] 17 unit SQ HS 10/24/19 05/19/21 Budesonide/Formoterol Fumarate 2 puff INHALATION RT-BID 05/19/21 05/19/21 [Symbicort 160-4.5 Mcg Inhaler] Cyanocobalamin (Vitamin B-12) 1,000 mcg PO DAILY 05/19/21 05/19/21 [Vitamin B-12] Diclofenac Sodium Gel [Voltaren 4 gm TOPICAL QID PRN 05/19/21 05/19/21 Gel] Furosemide [Lasix] 20 mg PO DAILY PRN 05/19/21 05/19/21 Indomethacin [Indocin] 25 mg PO BID PRN 05/19/21 05/19/21 Ipratropium-Albuterol Nebulize 3 ml INHALATION RT-DAILY PRN 05/19/21 05/19/21 [Duoneb 0.5 mg-3 mg/3 ml Soln] Sertraline [Zoloft] 25 mg PO HS 05/19/21 05/19/21 Timolol 0.5% Ophth Soln [Timoptic 1 drop BOTH EYES BID 05/19/21 05/19/21 0.5% Ophth Soln] glipiZIDE [Glucotrol] 2.5 mg PO AC-BID 05/19/21 05/19/21 Allergies Allergy/AdvReac Type Severity Reaction Status Date / Time diphenhydramine AdvReac Hallucinati Verified 05/19/21 13:46 [From Divya] ons antihistamines AdvReac Hallucinati Uncoded 05/19/21 12:07 ons Review of Systems ROS Statement: Those systems with pertinent positive or pertinent negative responses have been documented in the HPI. ROS Other: All systems not noted in ROS Statement are negative. Constitutional: Denies: fever Eyes: Denies: eye pain ENT: Denies: ear pain Respiratory: Reports: as per HPI, cough, dyspnea Cardiovascular: Reports: dyspnea on exertion. Denies: chest pain, edema Endocrine: Denies: fatigue Gastrointestinal: Denies: abdominal pain Genitourinary: Denies: dysuria Musculoskeletal: Denies: back pain Skin: Denies: rash Neurological: Denies: weakness Psychiatric: Denies: anxiety Past Medical History Past Medical History: Asthma, Cancer, CVA/TIA, Diabetes Mellitus, Eye Disorder, Osteoarthritis (OA) Additional Past Medical History / Comment(s): Hx cervical cancer 30 yrs ago, laser surgery. Diabetic retinopathy. Hx CVA - undiagnosed 2 yrs ago. Poor ba stephanie. History of Any Multi-Drug Resistant Organisms: None Reported Past Surgical History: Joint Replacement Additional Past Surgical History / Comment(s): Bilateral knee replacements. Past Anesthesia/Blood Transfusion Reactions: No Reported Reaction, Motion Sickness Past Psychological History: Anxiety Past Alcohol Use History: Occasional Past Drug Use History: None Reported - Past Family History Sister(s) Family Medical History: Cancer Additional Family Medical History / Comment(s): Breast cancer. General Exam Limitations: no limitations General appearance: alert, in no apparent distress Head exam: Present: normocephalic Eye exam: Present: normal appearance ENT exam: Present: normal oropharynx Neck exam: Present: normal inspection Respiratory exam: Present: normal lung sounds bilaterally Cardiovascular Exam: Present: regular rate, normal rhythm GI/Abdominal exam: Present: soft. Absent: tenderness Extremities exam: Present: pedal edema (+1 bilateral). Absent: calf tenderness Neurological exam: Present: alert Psychiatric exam: Present: normal affect, normal mood Skin exam: Present: normal color Course Vital Signs 05/19/21 05/19/21 05/19/21 12:05 12:14 14:31 Temperature 97.8 F 98.7 F Pulse Rate 68 68 Respiratory 18 20 18 Rate Blood Pressure 121/61 126/63 O2 Sat by Pulse 96 99 Oximetry 05/19/21 05/19/21 14:34 14:48 Temperature Pulse Rate 64 66 Respiratory Rate Blood Pressure O2 Sat by Pulse Oximetry EKG Findings - EKG Comments: EKG Findings:: Normal sinus rhythm with a rate of 65. VA 162. QRS 132. QT 426 . QTc 443. Normal axis. Right bundle branch block. No acute ST change. Medical Decision Making - Medical Decision Making Patient reevaluated and still having exertional dyspnea. Patient had reported great difficulty with going to the restroom while walking there. Case was discussed with Dr. Jack, who will admit covering hospital call. Patient also experienced some floaters while in the emergency department. Visual exam done. No evidence of retinal detachment. Symptoms have resolved. Case was also discussed with ophthalmology, Dr. Tavarez, who will consult. - Lab Data Result diagrams: 05/19/21 12:25 05/19/21 12:25 Lab Results 05/19/21 05/19/21 05/19/21 Range/Units 12:25 12:25 12:25 WBC 7.5 (3.8-10.6) k/uL RBC 4.03 (3.80-5.40) m/uL Hgb 12.7 (11.4-16.0) gm/dL Hct 38.3 (34.0-46.0) % MCV 95.1 (80.0-100.0) fL MCH 31.6 (25.0-35.0) pg MCHC 33.2 (31.0-37.0) g/dL RDW 14.5 (11.5-15.5) % Plt Count 314 (150-450) k/uL MPV 7.1 Neutrophils % 63 % Lymphocytes % 24 % Monocytes % 6 % Eosinophils % 5 % Basophils % 1 % Neutrophils # 4.7 (1.3-7.7) k/uL Lymphocytes # 1.8 (1.0-4.8) k/uL Monocytes # 0.4 (0-1.0) k/uL Eosinophils # 0.4 (0-0.7) k/uL Basophils # 0.1 (0-0.2) k/uL PT 9.7 (9.0-12.0) sec INR 0.9 (<1.2) APTT 24.8 (22.0-30.0) sec D-Dimer 0.84 H (<0.60) mg/L FEU Sodium 135 L (137-145) mmol/L Potassium 4.2 (3.5-5.1) mmol/L Chloride 104 (98-107) mmol/L Carbon Dioxide 23 (22-30) mmol/L Anion Gap 8 mmol/L BUN 17 (7-17) mg/dL Creatinine 0.68 (0.52-1.04) mg/dL Est GFR (CKD-EPI)AfAm >90 (>60 ml/min/1.73 sqM) Est GFR (CKD-EPI)NonAf 85 (>60 ml/min/1.73 sqM) Glucose 131 H (74-99) mg/dL Plasma Lactic Acid Juanito (0.7-2.0) mmol/L Calcium 9.1 (8.4-10.2) mg/dL Total Bilirubin 0.4 (0.2-1.3) mg/dL AST 28 (14-36) U/L ALT 14 (4-34) U/L Alkaline Phosphatase 87 (38-126) U/L Troponin I (0.000-0.034) ng/mL NT-Pro-B Natriuret Pep pg/mL Total Protein 6.0 L (6.3-8.2) g/dL Albumin 3.8 (3.5-5.0) g/dL Coronavirus (PCR) (Not Detectd) 05/19/21 05/19/21 05/19/21 Range/Units 12:25 12:25 12:25 WBC (3.8-10.6) k/uL RBC (3.80-5.40) m/uL Hgb (11.4-16.0) gm/dL Hct (34.0-46.0) % MCV (80.0-100.0) fL MCH (25.0-35.0) pg MCHC (31.0-37.0) g/dL RDW (11.5-15.5) % Plt Count (150-450) k/uL MPV Neutrophils % % Lymphocytes % % Monocytes % % Eosinophils % % Basophils % % Neutrophils # (1.3-7.7) k/uL Lymphocytes # (1.0-4.8) k/uL Monocytes # (0-1.0) k/uL Eosinophils # (0-0.7) k/uL Basophils # (0-0.2) k/uL PT (9.0-12.0) sec INR (<1.2) APTT (22.0-30.0) sec D-Dimer (<0.60) mg/L FEU Sodium (137-145) mmol/L Potassium (3.5-5.1) mmol/L Chloride (98-107) mmol/L Carbon Dioxide (22-30) mmol/L Anion Gap mmol/L BUN (7-17) mg/dL Creatinine (0.52-1.04) mg/dL Est GFR (CKD-EPI)AfAm (>60 ml/min/1.73 sqM) Est GFR (CKD-EPI)NonAf (>60 ml/min/1.73 sqM) Glucose (74-99) mg/dL Plasma Lactic Acid Juanito 1.0 (0.7-2.0) mmol/L Calcium (8.4-10.2) mg/dL Total Bilirubin (0.2-1.3) mg/dL AST (14-36) U/L ALT (4-34) U/L Alkaline Phosphatase (38-126) U/L Troponin I <0.012 (0.000-0.034) ng/mL NT-Pro-B Natriuret Pep pg/mL Total Protein (6.3-8.2) g/dL Albumin (3.5-5.0) g/dL Coronavirus (PCR) Not Detected (Not Detectd) 05/19/21 Range/Units 12:25 WBC (3.8-10.6) k/uL RBC (3.80-5.40) m/uL Hgb (11.4-16.0) gm/dL Hct (34.0-46.0) % MCV (80.0-100.0) fL MCH (25.0-35.0) pg MCHC (31.0-37.0) g/dL RDW (11.5-15.5) % Plt Count (150-450) k/uL MPV Neutrophils % % Lymphocytes % % Monocytes % % Eosinophils % % Basophils % % Neutrophils # (1.3-7.7) k/uL Lymphocytes # (1.0-4.8) k/uL Monocytes # (0-1.0) k/uL Eosinophils # (0-0.7) k/uL Basophils # (0-0.2) k/uL PT (9.0-12.0) sec INR (<1.2) APTT (22.0-30.0) sec D-Dimer (<0.60) mg/L FEU Sodium (137-145) mmol/L Potassium (3.5-5.1) mmol/L Chloride (98-107) mmol/L Carbon Dioxide (22-30) mmol/L Anion Gap mmol/L BUN (7-17) mg/dL Creatinine (0.52-1.04) mg/dL Est GFR (CKD-EPI)AfAm (>60 ml/min/1.73 sqM) Est GFR (CKD-EPI)NonAf (>60 ml/min/1.73 sqM) Glucose (74-99) mg/dL Plasma Lactic Acid Juanito (0.7-2.0) mmol/L Calcium (8.4-10.2) mg/dL Total Bilirubin (0.2-1.3) mg/dL AST (14-36) U/L ALT (4-34) U/L Alkaline Phosphatase (38-126) U/L Troponin I (0.000-0.034) ng/mL NT-Pro-B Natriuret Pep 248 pg/mL Total Protein (6.3-8.2) g/dL Albumin (3.5-5.0) g/dL Coronavirus (PCR) (Not Detectd) - Radiology Data Radiology results: report reviewed (CT chest negative for pulmonary embolism), image reviewed (Chest x-ray shows no acute process) Disposition Clinical Impression: Exertional dyspnea Disposition: ADMITTED IP TO THIS HOSP Is patient prescribed a controlled substance at d/c from ED?: No Referrals: Viki Sweet MD [Primary Care Provider] - 1-2 days Decision Time: 15:45
[2021-05-19 12:37] LABS: Basophils # (A) 0.1 k/uL (0-0.2); Basophils % (A) 1 %; Eosinophils # (A) 0.4 k/uL (0-0.7); Eosinophils % (A) 5 %; HCT 38.3 % (34.0-46.0); HGB 12.7 gm/dL (11.4-16.0); Lymphocytes # (A) 1.8 k/uL (1.0-4.8); Lymphocytes % (A) 24 %; MCH 31.6 pg (25.0-35.0); MCHC 33.2 g/dL (31.0-37.0); MCV 95.1 fL (80.0-100.0); Mean Platelet Volume 7.1; Monocytes # (A) 0.4 k/uL (0-1.0); Monocytes % (A) 6 %; Neutrophils # (A) 4.7 k/uL (1.3-7.7); Neutrophils % (A) 63 %; Platelet Count 314 k/uL (150-450); RBC 4.03 m/uL (3.80-5.40); RDW 14.5 % (11.5-15.5); WBC 7.5 k/uL (3.8-10.6)
--- NOTE | 2021-05-19 12:47 | XR ---
EXAMINATION TYPE: XR chest 2V DATE OF EXAM: 05/19/2021 COMPARISON: Chest x-ray 09/03/2019 HISTORY: Difficulty breathing, shortness of breath TECHNIQUE: Frontal and lateral views of the chest are obtained. FINDINGS: There is no focal air space opacity, pleural effusion, or pneumothorax seen. The cardiac silhouette size is within normal limits. Aorta is dense and the patient is rotated, there are overly ing leads The osseous structures are intact. Prominent lung volume could be indicative of underlying COPD. IMPRESSION: No acute cardiopulmonary process.
[2021-05-19 12:50] LABS: ALT 14 U/L (4-34); AST 28 U/L (14-36); African American GFR (CKD) >90 (>60 ml/min/1.73 sqM); Albumin 3.8 g/dL (3.5-5.0); Alkaline Phosphatase 87 U/L (38-126); Anion Gap 8 mmol/L; Blood Urea Nitrogen 17 mg/dL (7-17); Calcium 9.1 mg/dL (8.4-10.2); Carbon Dioxide 23 mmol/L (22-30); Chloride 104 mmol/L (98-107); Glucose 131 mg/dL (74-99); Non-African American GFR(CKD) 85 (>60 ml/min/1.73 sqM); Potassium 4.2 mmol/L (3.5-5.1); Sodium 135 mmol/L (137-145); Total Bilirubin 0.4 mg/dL (0.2-1.3)
[2021-05-19 12:53] LABS: INR 0.9 (<1.2); Partial Thromboplastin Time 24.8 sec (22.0-30.0); Prothrombin Time 9.7 sec (9.0-12.0)
--- NOTE | 2021-05-19 14:10 | CT ---
EXAMINATION TYPE: CT angio chest DATE OF EXAM: 05/19/2021 COMPARISON: CT chest 09/03/2019 HISTORY: dyspnea CT DLP: 305.6 mGycm Automated exposure control for dose reduction was used. CONTRAST: CTA scan of the thorax is performed with IV Contrast, patient injected with 100 mL of Isovue 370, pul monary embolism protocol. MIP images are created and reviewed. 3D reconstructed images are created on an independent workstation and reviewed. FINDINGS: LUNGS: The lungs are remarkable for patchy basilar density possibly related to dependent atelectatic change, there is no concerning parenchymal mass or nodule identified. There is no pleural effusion or pneumothorax seen. The tracheobronchial tree is patent. AORTA: No additional significant abnormality is seen. MEDIASTINUM: There is satisfactory enhancement of the pulmonary artery and its branches, there is no CT evidence for pulmonary embolism. There are no greater than 1 cm hilar or mediastinal lymph nodes. No pericardial effusion is seen. OTHER: There is thoracic spondylosis, degenerative disc disease. IMPRESSION: NO EVIDENT PULMONARY EMBOLUS.
[2021-05-19] MEDS ORDERED: IPRATROPIUM-ALBUTEROL 3 ML NEB INHALATION STA (14:22)
[2021-05-19] MEDS ORDERED: NITROGLYCERIN SL TABS 0.4 MG TAB SUBLINGUAL PRN (15:48)
[2021-05-19] MEDS ORDERED: NALOXONE 0.4 MG/ML 1 ML VIAL IV PRN (16:36)
[2021-05-19] MEDS ORDERED: FUROSEMIDE 20 MG TAB PO PRN (16:37)
--- NOTE | 2021-05-19 17:24 | P.HPIM ---
History of Present Illness H&P Date: 05/19/21 Chief Complaint: Dyspnea on exertion 76-year-old woman with medical history of hypertension, hyperlipidemia, diabetes type 2, mood disorder, asthma presented with dyspnea on exertion. Patient says that her dyspnea started this morning when she was on a walk, after returning home, she tried her rescue albuterol inhaler with no relief. Due to concerns over her dyspnea, she presented to the emergency room with the plan to get a nebulizer go home. However, she noted that even after the nebulizer she continued renal short of breath. She has no other associated symptoms including the denial of fevers, chills, nausea, vomiting, chest pain, palpitations, syncope, cough, abdominal pain, diarrhea, constipation, dysuria, dyschezia, numbness/weakness of extremities. Patient is afebrile 155/81, heart rate 97, 97% on 2 L of nasal cannula. CBC was unremarkable, d-dimer was mildly elevated at 0.84, chemistries demonstrated elevated glucose to 131, otherwise negative. Troponin and BNP were negative. Chest x-ray was clear. Computed tomography scan did not demonstrate any evidence of parenchymal pathology or pulmonary embolism. Review of Systems All Systems reviewed and pertinent positives and negatives noted in HPI, all other symptoms are negative Past Medical History Past Medical History: Asthma, Cancer, CVA/TIA, Diabetes Mellitus, Eye Disorder, Osteoarthritis (OA) Additional Past Medical History / Comment(s): Hx cervical cancer 30 yrs ago, laser surgery. Diabetic retinopathy. Hx CVA - undiagnosed 2 yrs ago. Poor balance. History of Any Multi-Drug Resistant Organisms: None Reported Past Surgical History: Joint Replacement Additional Past Surgical History / Comment(s): Bilateral knee replacements. Past Anesthesia/Blood Transfusion Reactions: No Reported Reaction, Motion Sickness Past Psychological History: Anxiety Past Alcohol Use History: Occasional Past Drug Use History: None Reported - Past Family History Sister(s) Family Medical History: Cancer Additional Family Medical History / Comment(s): Breast cancer. Medications and Allergies Home Medications Medication Instructions Recorded Confirmed Type Aspirin EC [Ecotrin Low Dose] 81 mg PO HS 02/26/19 05/19/21 History metFORMIN HCL [Glucophage] 1,000 mg PO BID 02/26/19 05/19/21 History Cholecalciferol [Vitamin D3 (25 1,000 unit PO DAILY 10/24/19 05/19/21 History Mcg = 1000 Iu)] Insulin Glargine [Lantus] 17 unit SQ HS 10/24/19 05/19/21 History Budesonide/Formoterol Fumarate 2 puff INHALATION RT-BID 05/19/21 05/19/21 History [Symbicort 160-4.5 Mcg Inhaler] Cyanocobalamin (Vitamin B-12) 1,000 mcg PO DAILY 05/19/21 05/19/21 History [Vitamin B-12] Diclofenac Sodium Gel [Voltaren 4 gm TOPICAL QID PRN 05/19/21 05/19/21 History Gel] Furosemide [Lasix] 20 mg PO DAILY PRN 05/19/21 05/19/21 History Indomethacin [Indocin] 25 mg PO BID PRN 05/19/21 05/19/21 History Ipratropium-Albuterol Nebulize 3 ml INHALATION RT-DAILY PRN 05/19/21 05/19/21 History [Duoneb 0.5 mg-3 mg/3 ml Soln] Sertraline [Zoloft] 25 mg PO HS 05/19/21 05/19/21 History Timolol 0.5% Ophth Soln [Timoptic 1 drop BOTH EYES BID 05/19/21 05/19/21 History 0.5% Ophth Soln] glipiZIDE [Glucotrol] 2.5 mg PO AC-BID 05/19/21 05/19/21 History Allergies Allergy/AdvReac Type Severity Reaction Status Date / Time diphenhydramine AdvReac Hallucinati Verified 05/19/21 13:46 [From Benadryl] ons antihistamines AdvReac Hallucinati Uncoded 05/19/21 12:07 ons Physical Exam Osteopathic Statement: *. No significant issues noted on an osteopathic structural exam other than those noted in the History and Physical/Consult. Vitals: Vital Signs Temp Pulse Pulse Resp BP BP Pulse Ox 05/19/21 17:06 98.7 F 97 18 155/81 96 05/19/21 16:56 98.0 F 70 17 122/72 97 05/19/21 14:48 66 05/19/21 14:34 64 05/19/21 14:31 98.7 F 68 18 126/63 99 05/19/21 12:14 20 05/19/21 12:05 97.8 F 68 18 121/61 96 Intake and Output 05/19/21 05/19/21 05/19/21 06:59 14:59 22:59 Other: Weight 68.039 kg Gen: awake, alert HEENT: normocephalic, atraumatic, good hearing acuity, moist mucous membranes Resp: Diminished air exchange, breathing comfortably with no accessory muscle u se, clear to auscultation bilaterally CVS: good distal perfusion x 4, regular rate and rhythm without murmurs GI: soft, NTTP, ND : no SPT, no CVAT, restrepo catheter not present MSK: no pitting edema, no clubbing Neuro: non-focal, moving all extremities Psych: cooperative, euthymic mood Results CBC & Chem 7: 05/19/21 12:25 05/19/21 12:25 Labs: Abnormal Lab Results - Last 24 Hours (Table) 05/19/21 05/19/21 Range/Units 12:25 12:25 D-Dimer 0.84 H (<0.60) mg/L FEU Sodium 135 L (137-145) mmol/L Glucose 131 H (74-99) mg/dL Total Protein 6.0 L (6.3-8.2) g/dL Assessment and Plan Assessment: Dyspnea on exertion Moderate persistent asthma -Admit to observation, telemetry -Cardiology consult -Echocardiogram -Nebulizers -We'll hold off on steroids as this is does not appear to be an asthma exacerbation -Continue home inhalers -Continue to monitor and provide supportive care -Oxygen when necessary Hypertension Hyperlipidemia Diabetes type 2 Mood disorder -Home medications reviewed and reconciled -Low-dose sliding scale insulin, home Levemir, holding home oral diabetes medications Patient is full code DVT prophylaxis with enoxaparin daily
[2021-05-19 17:53] LABS: Glucose,Whole Blood 243 mg/dL (75-99)
[2021-05-19] MEDS: INSULIN ASPART (NovoLOG) 100 UNIT/ML VIAL SQ SCH (17:54)
[2021-05-19] MEDS: SYMBICORT 160-4.5 MCG INHALER INHALATION SCH (20:11)
[2021-05-19] MEDS: ASPIRIN 81 MG PO SCH (20:20)
[2021-05-19] MEDS: SERTRALINE 25 MG TAB PO SCH (20:20)
[2021-05-19] MEDS: TIMOLOL 0.5% OPHTH DROPS 5 ML BTL BOTH EYES SCH (20:21)
[2021-05-19 20:33] LABS: Glucose,Whole Blood 118 mg/dL (75-99)
[2021-05-19] MEDS: INSULIN DETEMIR (LEVEMIR) 100 UNIT/ML SYR SQ SCH (20:45)
[2021-05-20] MEDS: ACETAMINOPHEN TAB 325 MG TAB PO PRN (01:45)
[2021-05-20] MEDS: IPRATROPIUM-ALBUTEROL 3 ML NEB INHALATION PRN (01:54)
[2021-05-20] MEDS: SYMBICORT 160-4.5 MCG INHALER INHALATION SCH ×2 (06:51→19:32)
[2021-05-20 07:08] LABS: Glucose,Whole Blood 89 mg/dL (75-99)
[2021-05-20] MEDS ORDERED: ASPIRIN 325 MG TAB PO STA (08:12)
[2021-05-20] MEDS ORDERED: ALPRAZolam 0.5 MG TAB PO PRN (08:12)
[2021-05-20] MEDS ORDERED: ATORVASTATIN 80 MG TAB PO STA (08:12)
[2021-05-20] MEDS ORDERED: SODIUM CHLORIDE 0.9% 1,000 ML in EMPTY BAG 1 BAG IV ONE (08:12)
[2021-05-20] MEDS ORDERED: ALPRAZolam 0.25 MG TAB PO PRN (08:12)
[2021-05-20] MEDS: INSULIN ASPART (NovoLOG) 100 UNIT/ML VIAL SQ SCH ×3 (08:45→17:44)
[2021-05-20] MEDS: ENOXAPARIN 40 MG/0.4 ML SYRINGE SQ SCH (08:51)
--- NOTE | 2021-05-20 09:35 | P.CRDCN ---
History of Present Illness History of present illness: HISTORY OF PRESENTING ILLNESS This is a pleasant 76-year-old female past medical history significant for diabetes mellitus and asthma. She follows in the office with Dr Major in [facility]. We have been asked to see in consultation for shortness of breath. She states yesterday morning she went outside to walk her dog as she does every morning. After coming inside she became acutely short of breath. She states this is abnormal for her as she is quite active regularly. She tried using her inhaler even though it didn't fee like asthma and she wasn't wheezing and got no relief. She denies any associated chest pain, dizziness or palpitations. Her daughter states she has been complaining of increased discomfort in her shoulders and arms over the past week but noting intolerable or concerning to the patient. She continues to be short of breath this morning with minimal acti vity. Previously the patient has undergone a Lexiscan stress test in 2017 that was negative for reversible cardiac ischemia. Most recent echocardiogram obtained in 2018 revealed preserved LV systolic function with ejection fraction 55-60% with moderate tricuspid regurgitation and no significant pulmonary hypertension. According to the patient she did have a heart catheterization many years ago while living in [place] that she recalls as being unremarkable. Exact details are unavailable currently. DIAGNOSTICS EKG reveals sinus mechanism heart rate of 65 with right bundle branch block. Telemetry tracings indicate sinus mechanism with no significant arrhythmia. Chest xray negative for an acute cardiopulmonary process. CTA negative for PE. Laboratory reviewed, CBC unremarkable, d-dimer 0.84, sodium 135, potassium 4.2, creatinine 0.68, cardiac enzymes negative 3 and and proBNP 248. Current cardiac medications include aspirin 81 mg daily and Lasix 20 mg daily as needed. REVIEW OF SYSTEMS At the time of my exam: CONSTITUTIONAL: Denies fever or chills. CARDIOVASCULAR: Denies chest pain, shortness of breath, orthopnea, PND or palpitations. RESPIRATORY: Denies cough. GASTROINTESTINAL: Denies abdominal pain, diarrhea, constipation, nausea or vomiting. MUSCULOSKELETAL: Denies myalgias. NEUROLOGIC: Denies numbness, tingling, headache or weakness. ENDOCRINE: Denies fatigue, weight change, polydipsia or polyurina. GENITOURINARY: Denies burning, hematuria or urgency with micturation. HEMATOLOGIC: Denies history of anemia or bleeding. PHYSICAL EXAMINATION Blood pressure 108/65 heart rate 62 afebrile and maintaining oxygen saturation on nasal cannula. CONSTITUTIONAL: No apparent distress. HEENT: Head is normocephalic. Pupils are equal, round. Sclerae anicteric. Mucous membranes of the mouth are moist. No JVD. No carotid bruit. CHEST EXAMINATION: Lungs are clear to auscultation. No chest wall tenderness is noted on palpation or with deep breathing. Diminished bilaterally. HEART EXAMINATION: Regular rate and rhythm. S1, S2 heard. No murmurs, gallops or rub. ABDOMEN: Soft, nontender. EXTREMITIES: 2+ peripheral pulses, no lower extremity edema and no calf tenderness. NEUROLOGIC EXAMINATION: Patient is awake, alert and oriented x3. ASSESSMENT Exertional shortness of breath, possibly unstable angina Diabetes mellitus PLAN And acute coronary event has been ruled out. Symptoms are concerning for possible underlying coronary artery disease given no significant cause for her exertional shortness of breath. Recommend proceeding with cardiac catheterization. I have discussed the risks, benefits and alternative therapies for the above-mentioned procedure and for bot h sedation/analgesia as well as necessary blood product administration, if indicated, as they pertain to this patient. The patient has indicated understanding and acceptance of the risks and procedures discussed. Questions have been answered appropriately to the patient and her daughter. She is a greeable to undergo above stated procedure. Echocardiogram has been ordered and will be reviewed. Baseline lipid panel pending. Further recommendations to follow based upon clinical course. Thank you kindly for this consultation. Nurse Practitioner note has been reviewed, I agree with a documented findings and plan of care. Patient was seen and examined. Past Medical History Past Medical History: Asthma, Cancer, CVA/TIA, Diabetes Mellitus, Eye Disorder, Osteoarthritis (OA) Additional Past Medical History / Comment(s): Hx cervical cancer 30 yrs ago, laser surgery. Diabetic retinopathy. Hx CVA - undiagnosed 2 yrs ago. Poor ba stephanie. History of Any Multi-Drug Resistant Organisms: None Reported Past Surgical History: Joint Replacement Additional Past Surgical History / Comment(s): Bilateral knee replacements. Past Anesthesia/Blood Transfusion Reactions: No Reported Reaction, Motion Sickness Past Psychological History: Anxiety Past Alcohol Use History: Occasional Past Drug Use History: None Reported - Past Family History Sister(s) Family Medical History: Cancer Additional Family Medical History / Comment(s): Breast cancer. Medications and Allergies Home Medications Medication Instructions Recorded Confirmed Type Aspirin EC [Ecotrin Low Dose] 81 mg PO HS 02/26/19 05/19/21 History metFORMIN HCL [Glucophage] 1,000 mg PO BID 02/26/19 05/19/21 History Cholecalciferol [Vitamin D3 (25 1,000 unit PO DAILY 10/24/19 05/19/21 History Mcg = 1000 Iu)] Insulin Glargine [Lantus] 17 unit SQ HS 10/24/19 05/19/21 History Budesonide/Formoterol Fumarate 2 puff INHALATION RT-BID 05/19/21 05/19/21 History [Symbicort 160-4.5 Mcg Inhaler] Cyanocobalamin (Vitamin B-12) 1,000 mcg PO DAILY 05/19/21 05/19/21 History [Vitamin B-12] Diclofenac Sodium Gel [Voltaren 4 gm TOPICAL QID PRN 05/19/21 05/19/21 History Gel] Furosemide [Lasix] 20 mg PO DAILY PRN 05/19/21 05/19/21 History Indomethacin [Indocin] 25 mg PO BID PRN 05/19/21 05/19/21 History Ipratropium-Albuterol Nebulize 3 ml INHALATION RT-DAILY PRN 05/19/21 05/19/21 History [Duoneb 0.5 mg-3 mg/3 ml Soln] Sertraline [Zoloft] 25 mg PO HS 05/19/21 05/19/21 History Timolol 0.5% Ophth Soln [Timoptic 1 drop BOTH EYES BID 05/19/21 05/19/21 History 0.5% Ophth Soln] glipiZIDE [Glucotrol] 2.5 mg PO AC-BID 05/19/21 05/19/21 History Allergies Allergy/AdvReac Type Severity Reaction Status Date / Time diphenhydramine AdvReac Hallucinati Verified 05/19/21 13:46 [From Benadryl] ons antihistamines AdvReac Hallucinati Uncoded 05/19/21 12:07 ons Physical Exam Vitals: Vital Signs Temp Pulse Pulse Resp BP BP Pulse Ox 05/20/21 07:00 97.8 F 62 18 108/65 98 05/20/21 02:02 66 05/20/21 01:58 60 05/20/21 01:41 98.2 F 53 L 17 93/56 98 05/20/21 01:40 98 05/20/21 01:22 86 17 05/19/21 20:00 98.2 F 86 17 122/76 95 05/19/21 19:55 87 18 05/19/21 17:06 98.7 F 97 18 155/81 96 05/19/21 16:56 98.0 F 70 17 122/72 97 05/19/21 14:48 66 05/19/21 14:34 64 05/19/21 14:31 98.7 F 68 18 126/63 99 05/19/21 12:14 20 05/19/21 12:05 97.8 F 68 18 121/61 96 Intake and Output 05/19/21 05/20/21 05/20/21 22:59 06:59 14:59 Intake Total 0 Balance 0 Intake: Oral 0 Other: Voiding Method Toilet # Voids 1 1 Weight 68.039 kg Results 05/19/21 12:25 05/19/21 12:25 Cardiac Enzymes 05/19/21 05/19/21 05/19/21 Range/Units 12:25 12:25 16:25 AST 28 (14-36) U/L Troponin I <0.012 <0.012 (0.000-0.034) ng/mL 05/19/21 Range/Units 19:19 AST (14-36) U/L Troponin I <0.012 (0.000-0.034) ng/mL Coagulation 05/19/21 Range/Units 12:25 PT 9.7 (9.0-12.0) sec APTT 24.8 (22.0-30.0) sec CBC 05/19/21 Range/Units 12:25 WBC 7.5 (3.8-10.6) k/uL RBC 4.03 (3.80-5.40) m/uL Hgb 12.7 (11.4-16.0) gm/dL Hct 38.3 (34.0-46.0) % Plt Count 314 (150-450) k/uL Comprehensive Metabolic Panel 05/19/21 Range/Units 12:25 Sodium 135 L (137-145) mmol/L Potassium 4.2 (3.5-5.1) mmol/L Chloride 104 (98-107) mmol/L Carbon Dioxide 23 (22-30) mmol/L BUN 17 (7-17) mg/dL Creatinine 0.68 (0.52-1.04) mg/dL Glucose 131 H (74-99) mg/dL Calcium 9.1 (8.4-10.2) mg/dL AST 28 (14-36) U/L ALT 14 (4-34) U/L Alkaline Phosphatase 87 (38-126) U/L Total Protein 6.0 L (6.3-8.2) g/dL Albumin 3.8 (3.5-5.0) g/dL Current Medications Generic Name Dose Route Start Last Admin Trade Name Freq PRN Reason Stop Dose Admin Acetaminophen 650 mg 05/19/21 16:36 05/20/21 01:45 Acetaminophen Tab 325 Mg Tab PO 650 mg Q6HR PRN Administration Mild Pain or Fever > 100.5 Albuterol/Ipratropium 3 ml 05/19/21 16:37 05/20/21 01:54 Ipratropium-Albuterol 3 Ml Neb INHALATION 3 ml RT-DAILY PRN Administration Shortness Of Breath Aspirin 81 mg 05/19/21 21:00 05/19/21 20:20 Aspirin 81 Mg PO 81 mg HS DAVID Administration Budesonide/Formoterol Fumarate 2 puff 05/19/21 20:00 05/20/21 06:51 Symbicort 160-4.5 Mcg Inhaler INHALATION 2 puff RT-BID DAVID Administration Cholecalciferol 25 mcg 05/20/21 12:00 Cholecalciferol 25 Mcg (1000 Iu) Tablet PO DAILY@1200 DAVID Cyanocobalamin 1,000 mcg 05/20/21 12:00 Cyanocobalamin 500 Mcg Tab PO DAILY@1200 [facility] Enoxaparin Sodium 40 mg 05/20/21 09:00 Enoxaparin 40 Mg/0.4 Ml Syringe SQ DAILY DAVID Furosemide 20 mg 05/19/21 16:37 Furosemide 20 Mg Tab PO DAILY PRN Edema Insulin Aspart 0 unit 05/19/21 17:30 05/19/21 17:54 Insulin Aspart (Novolog) 100 Unit/Ml Vial SQ 4 unit AC-TID DAVID Administration Protocol Insulin Detemir 17 unit 05/19/21 21:00 05/19/21 20:45 Insulin Detemir (Levemir) 100 Unit/Ml Syr SQ 10 unit HS DAVID Administration Naloxone HCl 0.2 mg 05/19/21 16:36 Naloxone 0.4 Mg/Ml 1 Ml Vial IV Q2M PRN Opioid Reversal Nitroglycerin 0.4 mg 05/19/21 15:48 Nitroglycerin Sl Tabs 0.4 Mg Tab SUBLINGUAL Q5M PRN Chest Pain Sertraline HCl 25 mg 05/19/21 21:00 05/19/21 20:20 Sertraline 25 Mg Tab PO 25 mg HS DAVID Administration Sodium Chloride 10 ml 05/19/21 21:00 05/19/21 20:21 Sodium Chloride 0.9% Flush 10 Ml Syringe IV 10 ml BID DAVID Administration Timolol Maleate 1 drops 05/19/21 21:00 05/19/21 20:21 Timolol 0.5% Ophth Drops 5 Ml Btl BOTH EYES 1 drops BID DAVID Administration Intake and Output 05/19/21 05/20/21 05/20/21 22:59 06:59 14:59 Intake Total 0 Balance 0 Intake: Oral 0 Other: Voiding Method Toilet # Voids 1 1 Weight 68.039 kg 05/19/21 12:25 05/19/21 12:25
[2021-05-20] MEDS ORDERED: LIDOCAINE 1% INJ 10MG/ML (20 ML MDV) ONE (10:50)
[2021-05-20] MEDS ORDERED: VERAPAMIL 2.5 MG/ML 2 ML AMP ONE (10:50)
[2021-05-20] MEDS ORDERED: IV FLUID CONTINUATION 1,000 ML IV ONE (11:15)
[2021-05-20] MEDS ORDERED: MIDAZOLAM 2 MG/2 ML VIAL IV ONE (11:15)
[2021-05-20] MEDS ORDERED: HEPARIN SODIUM 1,000 UN/ML (10ML VL) ONE (11:16)
[2021-05-20] MEDS ORDERED: LIDOCAINE 1% INJ 10MG/ML (20 ML MDV) SQ ONE (11:20)
[2021-05-20] MEDS: VERAPAMIL SYRINGE (5 MG/10 ML) INTRAARTER ONE ×2 (11:23→11:31)
--- NOTE | 2021-05-20 11:26 | P.PN ---
Subjective Progress Note Date: 05/20/21 Seen by cardiology. Ongoing dyspnea on exertion. Plan for [facility] tomorrow. Objective - Vital Signs Vital signs: Vital Signs Temp 97.8 F 05/20/21 07:00 Pulse 62 05/20/21 07:00 Resp 18 05/20/21 07:00 BP 108/65 05/20/21 07:00 Pulse Ox 98 05/20/21 07:00 Intake & Output 05/19/21 05/20/21 05/20/21 18:59 06:59 18:59 Intake Total 0 Balance 0 Weight 68.039 kg Intake: Oral 0 Other: Voiding Method Toilet # Voids 1 - Exam Gen: awake, alert HEENT: normocephalic, atraumatic, good hearing acuity, moist mucous membranes Resp: Diminished air exchange, breathing comfortably with no accessory muscle use, clear to auscultation bilaterally CVS: good distal perfusion x 4, regular rate and rhythm without murmurs GI: soft, NTTP, ND : no SPT, no CVAT, restrepo catheter not present MSK: no pitting edema, no clubbing Neuro: non-focal, moving all extremities Psych: cooperative, euthymic mood - Labs CBC & Chem 7: 05/19/21 12:25 05/19/21 12:25 Labs: Abnormal Lab Results - Last 24 Hours (Table) 05/19/21 05/19/21 05/19/21 Range/Units 12:25 12:25 17:51 D-Dimer 0.84 H (<0.60) mg/L FEU Sodium 135 L (137-145) mmol/L Glucose 131 H (74-99) mg/dL POC Glucose (mg/dL) 243 H (75-99) mg/dL Total Protein 6.0 L (6.3-8.2) g/dL 05/19/21 Range/Units 20:31 D-Dimer (<0.60) mg/L FEU Sodium (137-145) mmol/L Glucose (74-99) mg/dL POC Glucose (mg/dL) 118 H (75-99) mg/dL Total Protein (6.3-8.2) g/dL Assessment and Plan Assessment: Dyspnea on exertion Moderate persistent asthma -Admit to observation, telemetry -Cardiology consult -Echocardiogram -Nebulizers -We'll hold off on steroids as this is does not appear to be an asthma exacerbation -Continue home inhalers -Continue to monitor and provide supportive care -Oxygen when necessary -[facility] tomorrow AM Hypertension Hyperlipidemia Diabetes type 2 Mood disorder -Home medications reviewed and reconciled -Low-dose sliding scale insulin, home Levemir, holding home oral diabetes medications Patient is full code DVT prophylaxis with enoxaparin daily
[2021-05-20] MEDS ORDERED: IOPAMIDOL-370 125ML BTL INJ ONE (11:31)
[2021-05-20] MEDS ORDERED: RX INFO: IV CONTRAST WAS GIVEN 1 EACH MISC MISCELLANE PRN (11:36)
[2021-05-20] MEDS ORDERED: SODIUM CHLORIDE 0.9% 1,000 ML IV SCH (11:45)
[2021-05-20] MEDS: TIMOLOL 0.5% OPHTH DROPS 5 ML BTL BOTH EYES SCH ×2 (11:49→20:56)
[2021-05-20 12:23] LABS: Glucose,Whole Blood 78 mg/dL (75-99)
[2021-05-20] MEDS: CHOLECALCIFEROL 25 MCG (1000 IU) TABLET PO SCH (13:11)
[2021-05-20] MEDS: CYANOCOBALAMIN 500 MCG TAB PO SCH (13:11)
[2021-05-20 14:26] LABS: Basophils # (A) 0.05 X 10*3/uL (0.00-0.10); Basophils % (A) 0.5 %; Eosinophils # (A) 0.45 X 10*3/uL (0.04-0.35); Eosinophils % (A) 4.5 %; HCT 36.8 % (37.2-46.3); HGB 11.8 g/dL (12.0-15.0); Lymphocytes # (A) 2.12 X 10*3/uL (0.90-5.00); Lymphocytes % (A) 21.1 %; MCH 30.6 pg (27.0-32.0); MCHC 32.1 g/dL (32.0-37.0); MCV 95.6 fL (80.0-97.0); Mean Platelet Volume 9.6 fL (9.5-12.2); Monocytes # (A) 0.78 X 10*3/uL (0.20-1.00); Monocytes % (A) 7.8 %; Neutrophils # (A) 6.62 X 10*3/uL (1.80-7.70); Neutrophils % (A) 65.7 %; Platelet Count 316 X 10*3/uL (140-440); RBC 3.85 X 10*6/uL (4.10-5.20); RDW 14.4 % (11.5-14.5); WBC 10.06 X 10*3/uL (4.50-10.00)
[2021-05-20 16:32] LABS: African American GFR (CKD) 96.9 (60.0-200.0); BUN/Creat Ratio 21.43 Ratio (12.00-20.00); Calcium 8.6 mg/dL (8.7-10.3); Chloride 109 mmol/L (96-109); Chol/HDL Ratio 2.61; Cholesterol 188 mg/dL (0-200); Glucose 63 mg/dL (70-110); Magnesium 1.8 mg/dL (1.5-2.4); Non-African American GFR(CKD) 83.6 (60.0-200.0); Sodium 141 mmol/L (135-145); Triglycerides <50.0 mg/dL (0.0-149.0)
[2021-05-20 17:21] LABS: Glucose,Whole Blood 139 mg/dL (75-99)
--- NOTE | 2021-05-20 17:31 | ECHOF ---
Referral Reason:Exertional dyspnea MEASUREMENTS -------- HEIGHT: 157.5 cm WEIGHT: 68.0 kg BP: 93/56 IVSd: 1.2 cm (0.6 - 1.1) LVIDd: 3.6 cm (3.9 - 5.3) LVPWd: 1.4 cm (0.6 - 1.1) EDV(Teich): 56 ml IVSs: 1.5 cm LVIDs: 2.6 cm LVPWs: 1.6 cm %IVS Thck: 28 % ESV(Teich): 24 ml EF(Teich): 57 % %FS: 29 % SV(Teich): 32 ml RVIDd: 3.4 cm (< 3.3) RA Diam: 4.8 cm LALs A4C: 5.6 cm LAAs A4C: 19.2 cm LAESV A-L A4C: 56 ml LAESV MOD A4C: 54 ml LALs A2C: 5.2 cm LAAs A2C: 18.5 cm LAESV A-L A2C: 56 ml LAESV MOD A2C: 53 ml LAESV(A-L): 58 ml LAESV Index (A-L): 34.19 ml/m Ao Diam: 3.1 cm (2.0 - 3.7) LA Diam: 4.0 cm (2.7 - 3.8) AV Cusp: 1.8 cm (1.5 - 2.6) EPSS: 0.7 cm MV E Linus: 1.13 m/s MV DecT: 215 ms MV Dec Licking: 5.3 m/s MV A Linus: 0.73 m/s MV E/A Ratio: 1.54 MV PHT: 62 ms TR Vmax: 2.71 m/s TR maxP.35 mmHg RAP: 5.00 mmHg RVSP: 34.35 mmHg MV EF SLOPE: 61.98 mm/s (70 - 150) MV EXCURSION: 10.38 mm (> 18.000) FINDINGS -------- Sinus rhythm. This was a technically adequate study. The left ventricular size is normal. There is mild concentric left ventricular hypertrophy. Overa left ventricular systolic function is normal with, an EF between 55 - 60 %. The right ventricle is mildly enlarged. LA is moderately dilated 34-39 ml/m2 The right atrium is mildly enlarged. Interatrial and interventricular septum intact. The aortic valve is trileaflet and appears structurally normal. There is no evidence of aortic regu rgitation. There is no evidence of aortic stenosis. [id number] mitral regurgitation is present. Moderate tricuspid regurgitation present. There is borderline pulmonary artery hypertension. The right ventricular systolic pressure, as measured by Doppler, is 34.35mmHg. There is no pulmonic regurgitation present. The aortic root size is normal. IVC Not well visulized. There is no pericardial effusion. CONCLUSIONS -------- 1. The left ventricular size is normal. 2. There is mild concentric left ventricular hypertrophy. 3. Overall left ventricular systolic function is normal with, an EF between 55 - 60 %. 4. The right ventricle is mildly enlarged. 5. LA is moderately dilated 34-39 ml/m2 6. The right atrium is mildly enlarged. 7. Ecjo-nv-zixkvzsc mitral regurgitation is present. 8. Moderate tricuspid regurgitation present. 9. There is borderline pulmonary artery hypertension. 10. The right ventricular systolic pressure, as measured by Doppler, is 34.35mmHg. UTILITY TELLER: Carine Edward [facility]
--- NOTE | 2021-05-20 19:58 | CC ---
CARDIAC CATHETERIZATION REPORT DATE OF SERVICE: 05/19/2021 PERFORMING PHYSICIAN: Mani Wu M.D. PROCEDURE PERFORMED: 1. Selective right and left coronary angiogram. 2. Left heart catheterization. INDICATION: Chest discomfort and shortness of breath with exertion that appeared to be of new onset and concerning for unstable angina in this 76-year-old female patient who is know to have diabetes. APPROACH: Right radial artery. COMPLICATIONS: None. LEVEL OF SEDATION: Moderate, with sedation length of 15 minutes. PROCEDURE DESCRIPTION: After obtaining informed consent, the patient was brought to the cardiac phlebotomist lab assistant. The right radial artery was cannulated using micropuncture technique. The micropuncture wire passed easily. Then I placed a 6-Azeri sheath at the right radial artery. I gave the patient 2 mg of verapamil IA and 5000 of heparin IV. Selective right and left coronary angiogram was performed using 5-Azeri JR4 and JL3.5 catheters. Left heart catheterization was performed using a 5-Azeri pigtail catheter. The procedure was completed without any complication. SELECTIVE CORONARY ANGIOGRAM: 1. The RCA is a large-caliber vessel and is a dominant vessel. The RCA is angiographically normal. It distally bifurcates into PDA and PLV branches; both appeared to be angiographically normal. 2. The left main is angiographically normal. It bifurcates into LCX and ramus intermedius and LAD. 3. The LCX is a large-caliber vessel. It is a nondominant vessel. The LCX is angiographically normal. It gives rise to first and second obtuse marginal branches. Both appeared to be angiographically normal. 4. The ramus intermedius is a large-caliber vessel and appeared to be angiographically normal. 5. The LAD appeared to be angiographically normal as well. 6. HEMODYNAMICS: The LVEDP was about 10 to 12 mmHg without significant gradient across the aortic valve. CONCLUSION: 1. Normal coronary angiogram. 2. Normal LVEDP. POSTPROCEDURE MANAGEMENT: Medical treatment and follow up with the patient. MMODL / IJN: [id number] /
[2021-05-20] MEDS: ASPIRIN 81 MG PO SCH (20:55)
[2021-05-20] MEDS: SERTRALINE 25 MG TAB PO SCH (20:56)
[2021-05-20] MEDS: INSULIN DETEMIR (LEVEMIR) 100 UNIT/ML SYR SQ SCH (20:56)
[2021-05-20 20:57] LABS: Glucose,Whole Blood 174 mg/dL (75-99)
--- NOTE | 2021-05-20 21:50 | CONS ---
CONSULTATION CHIEF COMPLAINT: Floater, right eye. HISTORY OF PRESENT ILLNESS: Patient developed a floater in the right eye associated with difficulty in breathing. The patient was admitted for difficulty in breathing yesterday. PAST MEDICAL HISTORY: Reviewed. PAST OPHTHALMIC HISTORY AND SURGERY: Patient had bilateral cataract extraction 10 years ago. The patient had diabetic retinopathy and is on intravitreal injections. EYE EXAMINATION: Lids, conjunctivae, sclerae, cornea are all normal. Anterior chamber quiet and deep. Tension 19 mmHg both eyes. Implants in good position. Vision is 20/50 right eye, 20/100 left eye. Vitreous shows vitreous floaters in both eyes with diabetic retinopathy and mild macular edema. ASSESSMENT: 1. Posterior vitreous detachment, right eye. 2. Diabetic retinopathy, moderate, with macular edema. 3. Dry eyes. PLAN: Patient is seeing her retina specialist soon. I advised her to call us if the floater comes back and if the vision blurs again. MMODL / IJN: [id number] /
[2021-05-21 02:52] LABS: Glucose,Whole Blood 47 mg/dL (75-99)
[2021-05-21 03:27] LABS: Glucose,Whole Blood 115 mg/dL (75-99)
[2021-05-21 06:54] LABS: Glucose,Whole Blood 96 mg/dL (75-99)
[2021-05-21] MEDS ORDERED: HEPARIN SODIUM,PORCINE 2,500 UNIT in SODIUM CHLORIDE 0.9% 250 ML IRRIGATION PRN (07:00)
[2021-05-21] MEDS ORDERED: HEPARIN SODIUM,PORCINE 10,000 UNIT in SODIUM CHLORIDE 0.9% 1,000 ML IRRIGATION PRN (07:00)
[2021-05-21 07:42] VITALS: RESP 17
[2021-05-21] MEDS: INSULIN ASPART (NovoLOG) 100 UNIT/ML VIAL SQ SCH ×2 (07:50→12:40)
[2021-05-21] MEDS: TIMOLOL 0.5% OPHTH DROPS 5 ML BTL BOTH EYES SCH (08:00)
[2021-05-21] MEDS: ENOXAPARIN 40 MG/0.4 ML SYRINGE SQ SCH (08:00)
[2021-05-21] MEDS: ACETAMINOPHEN TAB 325 MG TAB PO PRN (08:03)
[2021-05-21] MEDS: IPRATROPIUM-ALBUTEROL 3 ML NEB INHALATION PRN (08:44)
[2021-05-21] MEDS: SYMBICORT 160-4.5 MCG INHALER INHALATION SCH (08:46)
[2021-05-21] MEDS ORDERED: ATORVASTATIN 40 MG TAB PO SCH (09:00)
--- NOTE | 2021-05-21 10:52 | P.PN ---
Subjective HISTORY OF PRESENTING ILLNESS This is a pleasant 76-year-old female past medical history significant for diabetes mellitus and asthma. She follows in the office with Dr Major in [place]. We have been asked to see in consultation for shortness of breath. She states yesterday morning she went outside to walk her dog as she does every morning. After coming inside she became acutely short of breath. She states this is abnormal for her as she is quite active regularly. She tried using her inhaler even though it didn't fee like asthma and she wasn't wheezing and got no relief. She denies any associated chest pain, dizziness or palpitations. Her daughter states she has been complaining of increased discomfort in her shoulders and arms over the past week but noting intolerable or concerning to the patient. She continues to be short of breath this morning with minimal activity. Previously the patient has undergone a Lexiscan stress test in 2017 that was negative for reversible cardiac ischemia. Most recent echocardiogram obtained in 2018 revealed preserved LV systolic function with ejection fraction 55-60% with moderate tricuspid regurgitation and no significant pulmonary hypertension. According to the patient she did have a heart catheterization many years ago while living in [place] that she recalls as being unremarkable. Exact details are unavailable currently. 05/21/2021 Patient is seen and examined sitting up eating breakfast in no acute distress. She underwent cardiac catheterization yesterday revealing normal coronary arteries with a normal LVEDP of 10-12 mmHg with no significant gradient across the aortic valve. She denies symptoms of chest pain. According to the nursing staff she continued to have some shortness of breath this morning after getting up to the bathroom. Blood pressure 119/69 heart rate 68 afebrile maintaining oxygen saturation on nasal cannula. PHYSICAL EXAMINATION CONSTITUTIONAL: No apparent distress. HEENT: Head is normocephalic. Pupils are equal, round. Sclerae anicteric. Mucous membranes of the mouth are moist. No JVD. No carotid bruit. CHEST EXAMINATION: Lungs are clear to auscultation. No chest wall tenderness is noted on palpation or with deep breathing. Diminished bilaterally. HEART EXAMINATION: Regular rate and rhythm. S1, S2 heard. No murmurs, gallops or rub. EXTREMITIES: 2+ peripheral pulses, no lower extremity edema and no calf tenderness. Right radial access site soft, nontender with no hematoma, bleeding or ecchymosis. ASSESSMENT Exertional shortness of breath, possibly unstable angina Diabetes mellitus PLAN Normal coronary arteries. Etiology of shortness of breath possibly related to underlying pulmonary pathology. No further cardiac workup required at this time. Follow-up with her primary deportation examiner upon discharge. Nurse Practitioner note has been reviewed, I agree with a documented findings and plan of care. Patient was seen and examined. Objective - Vital Signs Vital signs: Vital Signs Temp 97.8 F 05/21/21 07:00 Pulse 68 05/21/21 08:55 Resp 17 05/21/21 07:00 BP 119/69 05/21/21 07:00 Pulse Ox 97 05/21/21 08:47 Intake & Output 05/20/21 05/21/21 05/21/21 18:59 06:59 18:59 Intake Total 100 118 Balance 100 118 Intake: IV 100 Oral 118 Other: Voiding Method Toilet Toilet # Voids 1 1 - Labs CBC & Chem 7: 05/20/21 05:17 05/20/21 05:17 Labs: Abnormal Lab Results - Last 24 Hours (Table) 05/20/21 05/20/21 05/20/21 Range/Units 05:17 05:17 17:20 WBC 10.06 H (4.50-10.00) X 10*3/uL RBC 3.85 L (4.10-5.20) X 10*6/uL Hgb 11.8 L (12.0-15.0) g/dL Hct 36.8 L (37.2-46.3) % Eosinophils # 0.45 H (0.04-0.35) X 10*3/uL BUN/Creatinine Ratio 21.43 H (12.00-20.00) Ratio Glucose 63 L (70-110) mg/dL POC Glucose (mg/dL) 139 H (75-99) mg/dL Calcium 8.6 L (8.7-10.3) mg/dL HDL Cholesterol 72.0 H (40.0-60.0) mg/dL 05/20/21 05/21/21 05/21/21 Range/Units 20:55 02:51 03:26 WBC (4.50-10.00) X 10*3/uL RBC (4.10-5.20) X 10*6/uL Hgb (12.0-15.0) g/dL Hct (37.2-46.3) % Eosinophils # (0.04-0.35) X 10*3/uL BUN/Creatinine Ratio (12.00-20.00) Ratio Glucose (70-110) mg/dL POC Glucose (mg/dL) 174 H 47 L 115 H (75-99) mg/dL Calcium (8.7-10.3) mg/dL HDL Cholesterol (40.0-60.0) mg/dL
[2021-05-21 11:52] LABS: Glucose,Whole Blood 146 mg/dL (75-99)
--- NOTE | 2021-05-21 13:07 | XR ---
EXAMINATION TYPE: XR chest 2V DATE OF EXAM: 05/21/2021 COMPARISON: 05/19/2021 INDICATION: Short of breath, asthma TECHNIQUE: Frontal and lateral views of the chest are obtained. FINDINGS: The heart size is normal. The pulmonary vasculature is normal. The lungs are clear. IMPRESSION: 1. No acute pulmonary process.
[2021-05-21] MEDS: CHOLECALCIFEROL 25 MCG (1000 IU) TABLET PO SCH (13:15)
[2021-05-21] MEDS: CYANOCOBALAMIN 500 MCG TAB PO SCH (13:15)
[2021-05-21 14:57] VITALS: BP 108/53; PULSE 75; TEMP 98.1
--- NOTE | 2021-05-21 15:07 | P.DS ---
Providers Date of admission: 05/19/21 15:48 Expected date of discharge: 05/21/21 Attending physician: Milton Jack MD Consults: 05/19/21 15:48 Consult Physician Urgent Consulting Provider: Pippa Corrales Consult Reason/Comments: Exertional dyspnea Do you want consulting provider notified?: Yes Consult Physician Urgent Consulting Provider: Jeannine Tavarez Consult Reason/Comments: Floaters right eye Do you want consulting provider notified?: Yes Primary care physician: Viki Sweet Hospital Course: Discharge Diagnosis: Acute exacerbation of moderate persistent asthma HTN HLD DM 2 Mood disorder Right shoulder arthritis Hospital Course: Patient is a 76 yo CF with a hx of Moderate persistent asthma, HTN, and DM who presetend with complaints of shortness of breath. The ER she underwent an extensive evaluation. Initial vital signs were within normal limits. CBC was unremarkable. D-dimer was mildly elevated at 0.84 and she subsequently underwent a CTA of the chest which showed no evidence of pulmonary embolism. Troponin and BNP were negative. Chest x-ray showed no acute process. She was admitted for further observation of her shortness of breath. Initially it was not felt that she had an asthma exacerbation she was started on as needed bronchodilators and had some improvement. She was seen by cardiology with possible concerns for cardiac etiology of dyspnea. She had a relatively normal echo as well as normal Coronaries on cardiac cath. She was determined stable for discharge home. She will need to establish with a direct care provider and has been set up for an appointment in 2 weeks. She should also follow with her primary care physician. Follow-up: Pulmonary, prednisone trial, suggest follow-up outpatient PFTs and possible high-rise CT for further etiologies of her dyspnea. Concerns also for possible allergic reaction. Predniosne X 5 days with increased used of inhaler. Echocardiogram-mild LVH, ejection fraction 55-60%, mild to moderate mitral regurgitation, borderline pulmonary hypertension CTA- no evidence of pulmonary embolism Cardiac cath- Normal CT angio, normal LVEDP Patient requires a wheelchair secondary to history of prior cerebrovascular accident with known gait instability and disturbances. This has been exacerbated by her current dyspnea. She is able to self propel will need this secondary to gait instability. She also needs a new nebulizer secondary to her moderate persistent asthma with possible acute exacerbation. Patient seen and examined at bedside. Breathing is better than yesterday, no chest pain, no abd pain, no nuasea, no vomiting, + right shoulder pain Vital signs reviewed and stable. General: non toxic, no distress, appears at stated age Derm: warm, dry Head: atraumatic, normocephalic, symmetric Eyes: EOMI, no lid lag, anicteric sclera Mouth: no lip lesion, mucus membranes moist Cardiovascular: S1S2 reg, no murmur, positive posterior tibial pulse bilateral, Lungs: Decreased bs bilateral, no rhonchi, no rales , no accessory muscle use Abdominal: soft, nontender to palpation, no guarding, no appreciable organomegaly, negative murphys sign Ext: no gross muscle atrophy, no edema, no contractures, + empty can test, + pain to palpation of AC joint, and pain to plapation of right posterior ribs Neuro: CN II-XI grossly intact, no focal neuro deficits Psych: Alert, oriented, appropriate affect A total of 35 minutes of time were spent preparing this complex discharge summary . Patient Condition at Discharge: Stable Plan - Discharge Summary Discharge Rx Participant: No New Discharge Prescriptions: New Atorvastatin [Lipitor] 40 mg PO DAILY #90 tab predniSONE [Deltasone] 40 mg PO DAILY #10 applic Continue metFORMIN HCL [Glucophage] 1,000 mg PO BID Aspirin EC [Ecotrin Low Dose] 81 mg PO HS Insulin Glargine [Lantus Vial] 17 unit SQ HS Cholecalciferol [Vitamin D3 (25 Mcg = 1000 Iu)] 1,000 unit PO DAILY Budesonide/Formoterol Fumarate [Symbicort 160-4.5 Mcg Inhaler] 2 puff INHALATION RT-BID Diclofenac Sodium Gel [Voltaren Gel] 4 gm TOPICAL QID PRN PRN Reason: Pain Furosemide [Lasix] 20 mg PO DAILY PRN PRN Reason: Edema Ipratropium-Albuterol Nebulize [Duoneb 0.5 mg-3 mg/3 ml Soln] 3 ml INHALATION RT-DAILY PRN PRN Reason: Shortness Of Breath Sertraline [Zoloft] 25 mg PO HS Cyanocobalamin (Vitamin B-12) [Vitamin B-12] 1,000 mcg PO DAILY glipiZIDE [Glucotrol] 2.5 mg PO AC-BID Indomethacin [Indocin] 25 mg PO BID PRN PRN Reason: JOINT PAIN Timolol 0.5% Ophth Soln [Timoptic 0.5% Ophth Soln] 1 drop BOTH EYES BID Discharge Medication List Aspirin EC [Ecotrin Low Dose] 81 mg PO HS 02/26/19 [History] metFORMIN HCL [Glucophage] 1,000 mg PO BID 02/26/19 [History] Cholecalciferol [Vitamin D3 (25 Mcg = 1000 Iu)] 1,000 unit PO DAILY 10/24/19 [History] Insulin Glargine [Lantus Vial] 17 unit SQ HS 10/24/19 [History] Budesonide/Formoterol Fumarate [Symbicort 160-4.5 Mcg Inhaler] 2 puff INHALATION RT-BID 05/19/21 [History] Cyanocobalamin (Vitamin B-12) [Vitamin B-12] 1,000 mcg PO DAILY 05/19/21 [History] Diclofenac Sodium Gel [Voltaren Gel] 4 gm TOPICAL QID PRN 05/19/21 [History] Furosemide [Lasix] 20 mg PO DAILY PRN 05/19/21 [History] Indomethacin [Indocin] 25 mg PO BID PRN 05/19/21 [History] Ipratropium-Albuterol Nebulize [Duoneb 0.5 mg-3 mg/3 ml Soln] 3 ml INHALATION RT-DAILY PRN 05/19/21 [History] Sertraline [Zoloft] 25 mg PO HS 05/19/21 [History] Timolol 0.5% Ophth Soln [Timoptic 0.5% Ophth Soln] 1 drop BOTH EYES BID 05/19/21 [History] glipiZIDE [Glucotrol] 2.5 mg PO AC-BID 05/19/21 [History] Atorvastatin [Lipitor] 40 mg PO DAILY #90 tab 05/21/21 [Rx] predniSONE [Deltasone] 40 mg PO DAILY #10 applic 05/21/21 [Rx] Follow up Appointment(s)/Referral(s): Dimas Catherine MD [REFERRING] - As Needed Viki Sweet MD [Primary Care Provider] - 1-2 days Hamida Whitman MD [STAFF PHYSICIAN] - 06/04/21 3:00 pm (Appointment is with Sherrill Kurtz) Activity/Diet/Wound Care/Special Instructions: Activity: as tolerated Diet: carb consistent Special Instructions: Take frequent breaks but maintain mobility Complete Steroid trial to see if it helps with breathing Use nebulizer twice a day while awake between symbicort doses, and can use up to 4 times daily as needed.
== END 2021-05-21 16:09 | disposition home or self-care (01) ==
LOC: EC 11:59 → 6NMEDSUR 15:48
PROVIDERS: ADMIT Internal Medicine; ATTEND Internal Medicine
DX: J45.41 Moderate persistent asthma with (acute) exacerbation (principal); Z20.822 Contact with and (suspected) exposure to COVID-19; I10 Essential (primary) hypertension; E11.311 Type 2 diabetes mellitus with unspecified diabetic retinopathy with macular edema; E78.5 Hyperlipidemia, unspecified; F39 Unspecified mood [affective] disorder; F41.9 Anxiety disorder, unspecified; H43.811 Vitreous degeneration, right eye; I08.1 Rheumatic disorders of both mitral and tricuspid valves; I45.10 Unspecified right bundle-branch block; M19.011 Primary osteoarthritis, right shoulder; Z79.4 Long term (current) use of insulin; Z79.51 Long term (current) use of inhaled steroids; Z79.82 Long term (current) use of aspirin; Z80.3 Family history of malignant neoplasm of breast; Z85.41 Personal history of malignant neoplasm of cervix uteri; Z86.73 Personal history of transient ischemic attack (TIA), and cerebral infarction without residual deficits; Z96.653 Presence of artificial knee joint, bilateral; Z98.41 Cataract extraction status, right eye; Z98.42 Cataract extraction status, left eye
CPT/HCPCS: 99285; 36415; 94640 ×4; 94760; 93005; 93306; 93458; 85379; 83880; 80061; 80053; 80048; 83605; 83735; 84484; 85025 ×2; 85610; 85730; 87635; 71046 ×2; 71275; G0378 ×3; C1894; C1769; J2250; J2001; J1650 ×2; J1644; Q9967 ×2

== ENCOUNTER → 2021-07-11 | Outpatient (CLI) | payer MEDICARE, OTHER ==
--- NOTE | 2021-07-11 16:38 | XR ---
EXAMINATION TYPE: XR chest 2V DATE OF EXAM: 07/11/2021 COMPARISON: 05/21/2021 HISTORY: 76-year-old female cough for 3 weeks TECHNIQUE: PA and lateral views FINDINGS: Heart borderline in size. Tortuosity/ectasia of the thoracic aorta. Some strandy atelectasis in the l ower lungs. Increased retrosternal clear space. No consolidation or pleural effusion seen. IMPRESSION: Borderline heart size. Possible underlying COPD. Some strandy atelectasis in the lower lungs. No defi nite acute process.
== END | disposition home or self-care (01) ==
LOC: LABWHC1 11:43
PROVIDERS: ATTEND Internal Medicine
DX: R05.9 Cough, unspecified (principal)
CPT/HCPCS: 87635; 71046; C9803

== ENCOUNTER 2021-08-16 12:04 | Emergency (ER) | payer MEDICARE, OTHER ==
[2021-08-16 12:28] VITALS: BP 137/54; PULSE 78; RESP 22; TEMP 98.1
[2021-08-16] MEDS ORDERED: methylPREDNISolone SOD SUCCI 125 MG/2 ML VIAL IV STA (12:45)
--- NOTE | 2021-08-16 13:01 | ED ---
General Adult HPI - General Chief complaint: Upper Respiratory Infection Stated complaint: weak/cough Time Seen by Provider: 08/16/21 12:35 Source: patient, RN notes reviewed, old records reviewed Mode of arrival: ambulatory Limitations: no limitations - History of Present Illness Initial comments: 76-year-old female history of asthma and COPD presenting with cough, nasal congestion. Mild dyspnea. Patient denies known exposure to coronavirus. She s tates she has been vaccinated. She denies fever or central chest pain. Denies lower extremity pain or swelling. - Related Data Home Medications Medication Instructions Recorded Confirmed metFORMIN HCL [Glucophage] 1,000 mg PO BID-W/MEALS 02/26/19 08/16/21 Insulin Glargine [Lantus Vial] 17 unit SQ HS 10/24/19 08/16/21 Budesonide/Formoterol Fumarate 2 puff INHALATION RT-BID 05/19/21 08/16/21 [Symbicort 160-4.5 Mcg Inhaler] Furosemide [Lasix] 20 mg PO DAILY PRN 05/19/21 08/16/21 Indomethacin [Indocin] 25 mg PO BID PRN 05/19/21 08/16/21 Sertraline [Zoloft] 25 mg PO HS 05/19/21 08/16/21 Timolol 0.5% Ophth Soln [Timoptic 1 drop LEFT EYE BID 05/19/21 08/16/21 0.5% Ophth Soln] Budesonide [Pulmicort Flexhaler] 1 puff INHALATION RT-BID 08/16/21 08/16/21 Dextromethorphan Polistirex 60 mg PO BID PRN 08/16/21 08/16/21 [Delsym] lisinopriL [Zestril] 2.5 mg PO DAILY 08/16/21 08/16/21 Previous Rx's Medication Instructions Recorded Azithromycin [Zithromax Z-pack] 0 mg PO DIRECTED #6 tab 08/16/21 predniSONE 50 mg PO DAILY #5 tab 08/16/21 Allergies Allergy/AdvReac Type Severity Reaction Status Date / Time diphenhydramine AdvReac Hallucinati Verified 08/16/21 13:22 [From Benadryl] ons antihistamines AdvReac Hallucinati Uncoded 08/16/21 13:22 ons Review of Systems ROS Statement: Those systems with pertinent positive or pertinent negative responses have been documented in the HPI. ROS Other: All systems not noted in ROS Statement are negative. Past Medical History Past Medical History: Asthma, Cancer, CVA/TIA, Diabetes Mellitus, Eye Disorder, Osteoarthritis (OA) Additional Past Medical History / Comment(s): Hx cervical cancer 30 yrs ago, laser surgery. Diabetic retinopathy. Hx CVA - undiagnosed 2 yrs ago. Poor balance. History of Any Multi-Drug Resistant Organisms: None Reported Past Surgical History: Joint Replacement Additional Past Surgical History / Comment(s): Bilateral knee replacements. Past Anesthesia/Blood Transfusion Reactions: No Reported Reaction, Motion Sickness Past Psychological History: Anxiety Smoking Status: Never smoker Past Alcohol Use History: Occasional Past Drug Use History: None Reported - Past Family History Sister(s) Family Medical History: Cancer Additional Family Medical History / Comment(s): Breast cancer. General Exam Limitations: no limitations General appearance: alert, in no apparent distress Head exam: Present: atraumatic, normocephalic Eye exam: Present: normal appearance, PERRL ENT exam: Present: normal exam Neck exam: Present: normal inspection. Absent: tenderness, meningismus Respiratory exam: Present: wheezes, decreased breath sounds. Absent: respiratory distress Cardiovascular Exam: Present: regular rate, normal rhythm GI/Abdominal exam: Present: soft. Absent: distended, tenderness, guarding Extremities exam: Present: normal inspection, normal capillary refill. Absent: pedal edema, calf tenderness Neurological exam: Present: alert, oriented X3, CN II-XII intact. Absent: motor sensory deficit Psychiatric exam: Present: normal affect, normal mood Skin exam: Present: warm, dry, intact. Absent: cyanosis, diaphoretic Course Vital Signs 08/16/21 12:24 Temperature 98.1 F Pulse Rate 78 Respiratory 22 Rate Blood Pressure 137/54 O2 Sat by Pulse 98 Oximetry EKG Findings - EKG Comments: EKG Findings:: EKG: Normal sinus rhythm, right bundle branch block, rate 68, HI interval 148, QRS duration 126, QTC 433, no ST segment elevation. Medical Decision Making - Medical Decision Making 76-year-old female with cough, congestion, mild dyspnea. Patient overall appears well no respiratory distress. Chest x-ray is clear. She has normal CBC, normal CMP, negative point, negative BNP. She was concerned about coronavirus's test was performed and is negative. She's had 3 vaccines. I did offer observation versus a trial at home. She prefers discharge. She has a nebulizer. She will use her nebulized albuterol as well as oral steroids and antibiotics. She will follow with her primary care physician. - Lab Data Result diagrams: 08/16/21 13:14 08/16/21 13:14 Lab Results 08/16/21 08/16/21 08/16/21 Range/Units 13:14 13:14 13:14 WBC 5.7 (3.8-10.6) k/uL RBC 4.39 (3.80-5.40) m/uL Hgb 13.5 (11.4-16.0) gm/dL Hct 40.2 (34.0-46.0) % MCV 91.5 (80.0-100.0) fL MCH 30.9 (25.0-35.0) pg MCHC 33.7 (31.0-37.0) g/dL RDW 13.6 (11.5-15.5) % Plt Count 320 (150-450) k/uL MPV 7.3 Neutrophils % 57 % Lymphocytes % 32 % Monocytes % 7 % Eosinophils % 2 % Basophils % 1 % Neutrophils # 3.2 (1.3-7.7) k/uL Lymphocytes # 1.8 (1.0-4.8) k/uL Monocytes # 0.4 (0-1.0) k/uL Eosinophils # 0.1 (0-0.7) k/uL Basophils # 0.0 (0-0.2) k/uL PT 9.9 (9.0-12.0) sec INR 0.9 (<1.2) APTT 24.1 (22.0-30.0) sec Sodium 133 L (137-145) mmol/L Potassium 4.2 (3.5-5.1) mmol/L Chloride 103 (98-107) mmol/L Carbon Dioxide 21 L (22-30) mmol/L Anion Gap 9 mmol/L BUN 18 H (7-17) mg/dL Creatinine 0.95 (0.52-1.04) mg/dL Est GFR (CKD-EPI)AfAm 67 (>60 ml/min/1.73 sqM) Est GFR (CKD-EPI)NonAf 58 (>60 ml/min/1.73 sqM) Glucose 195 H (74-99) mg/dL Plasma Lactic Acid Juanito (0.7-2.0) mmol/L Calcium 9.0 (8.4-10.2) mg/dL Magnesium 1.5 L (1.6-2.3) mg/dL Total Bilirubin 0.4 (0.2-1.3) mg/dL AST 24 (14-36) U/L ALT 13 (4-34) U/L Alkaline Phosphatase 81 (38-126) U/L Troponin I (0.000-0.034) ng/mL NT-Pro-B Natriuret Pep pg/mL Total Protein 6.3 (6.3-8.2) g/dL Albumin 3.7 (3.5-5.0) g/dL Coronavirus (PCR) (Not Detectd) 08/16/21 08/16/21 08/16/21 Range/Units 13:14 13:14 13:14 WBC (3.8-10.6) k/uL RBC (3.80-5.40) m/uL Hgb (11.4-16.0) gm/dL Hct (34.0-46.0) % MCV (80.0-100.0) fL MCH (25.0-35.0) pg MCHC (31.0-37.0) g/dL RDW (11.5-15.5) % Plt Count (150-450) k/uL MPV Neutrophils % % Lymphocytes % % Monocytes % % Eosinophils % % Basophils % % Neutrophils # (1.3-7.7) k/uL Lymphocytes # (1.0-4.8) k/uL Monocytes # (0-1.0) k/uL Eosinophils # (0-0.7) k/uL Basophils # (0-0.2) k/uL PT (9.0-12.0) sec INR (<1.2) APTT (22.0-30.0) sec Sodium (137-145) mmol/L Potassium (3.5-5.1) mmol/L Chloride (98-107) mmol/L Carbon Dioxide (22-30) mmol/L Anion Gap mmol/L BUN (7-17) mg/dL Creatinine (0.52-1.04) mg/dL Est GFR (CKD-EPI)AfAm (>60 ml/min/1.73 sqM) Est GFR (CKD-EPI)NonAf (>60 ml/min/1.73 sqM) Glucose (74-99) mg/dL Plasma Lactic Acid Juanito 1.8 (0.7-2.0) mmol/L Calcium (8.4-10.2) mg/dL Magnesium (1.6-2.3) mg/dL Total Bilirubin (0.2-1.3) mg/dL AST (14-36) U/L ALT (4-34) U/L Alkaline Phosphatase (38-126) U/L Troponin I <0.012 (0.000-0.034) ng/mL NT-Pro-B Natriuret Pep 57 pg/mL Total Protein (6.3-8.2) g/dL Albumin (3.5-5.0) g/dL Coronavirus (PCR) (Not Detectd) 08/16/21 Range/Units 13:14 WBC (3.8-10.6) k/uL RBC (3.80-5.40) m/uL Hgb (11.4-16.0) gm/dL Hct (34.0-46.0) % MCV (80.0-100.0) fL MCH (25.0-35.0) pg MCHC (31.0-37.0) g/dL RDW (11.5-15.5) % Plt Count (150-450) k/uL MPV Neutrophils % % Lymphocytes % % Monocytes % % Eosinophils % % Basophils % % Neutrophils # (1.3-7.7) k/uL Lymphocytes # (1.0-4.8) k/uL Monocytes # (0-1.0) k/uL Eosinophils # (0-0.7) k/uL Basophils # (0-0.2) k/uL PT (9.0-12.0) sec INR (<1.2) APTT (22.0-30.0) sec Sodium (137-145) mmol/L Potassium (3.5-5.1) mmol/L Chloride (98-107) mmol/L Carbon Dioxide (22-30) mmol/L Anion Gap mmol/L BUN (7-17) mg/dL Creatinine (0.52-1.04) mg/dL Est GFR (CKD-EPI)AfAm (>60 ml/min/1.73 sqM) Est GFR (CKD-EPI)NonAf (>60 ml/min/1.73 sqM) Glucose (74-99) mg/dL Plasma Lactic Acid Juanito (0.7-2.0) mmol/L Calcium (8.4-10.2) mg/dL Magnesium (1.6-2.3) mg/dL Total Bilirubin (0.2-1.3) mg/dL AST (14-36) U/L ALT (4-34) U/L Alkaline Phosphatase (38-126) U/L Troponin I (0.000-0.034) ng/mL NT-Pro-B Natriuret Pep pg/mL Total Protein (6.3-8.2) g/dL Albumin (3.5-5.0) g/dL Coronavirus (PCR) Not Detected (Not Detectd) Disposition Clinical Impression: COPD (chronic obstructive pulmonary disease) Disposition: HOME SELF-CARE Condition: Good Instructions (If sedation given, give patient instructions): COPD (Chronic Obstructive Pulmonary Disease) (ED) Prescriptions: predniSONE 50 mg PO DAILY #5 tab Azithromycin [Zithromax Z-pack] 0 mg PO DIRECTED #6 tab Is patient prescribed a controlled substance at d/c from ED?: No Referrals: Dimas Catherine MD [Primary Care Provider] - 1-2 days Billy Fields DO [Doctor of Osteopathic Medicine] - 1-2 days Time of Disposition: 14:22
[2021-08-16 13:39] LABS: INR 0.9 (<1.2); Partial Thromboplastin Time 24.1 sec (22.0-30.0); Prothrombin Time 9.9 sec (9.0-12.0)
--- NOTE | 2021-08-16 13:39 | XR ---
EXAMINATION TYPE: XR chest 2V DATE OF EXAM: 08/16/2021 COMPARISON: Chest x-ray 07/11/2021 HISTORY: Difficulty breathing, dyspnea TECHNIQUE: Frontal and lateral views of the chest are obtained. FINDINGS: There is no focal air space opacity, pleural effusion, or pneumothorax seen. The cardiac silhouette size is within normal limits. There are prominent lung volumes. Thoracic spondylosis is pr esent. There are overlying leads. The osseous structures are intact. IMPRESSION: No acute cardiopulmonary process.
[2021-08-16 13:43] LABS: Albumin 3.7 g/dL (3.5-5.0); Magnesium 1.5 mg/dL (1.6-2.3); Potassium 4.2 mmol/L (3.5-5.1); Total Bilirubin 0.4 mg/dL (0.2-1.3); Total Protein 6.3 g/dL (6.3-8.2)
[2021-08-16 13:44] LABS: Basophils % (A) 1 %; Eosinophils # (A) 0.1 k/uL (0-0.7); Eosinophils % (A) 2 %; HCT 40.2 % (34.0-46.0); HGB 13.5 gm/dL (11.4-16.0); Lymphocytes # (A) 1.8 k/uL (1.0-4.8); Lymphocytes % (A) 32 %; MCH 30.9 pg (25.0-35.0); MCHC 33.7 g/dL (31.0-37.0); MCV 91.5 fL (80.0-100.0); Mean Platelet Volume 7.3; Monocytes # (A) 0.4 k/uL (0-1.0); Monocytes % (A) 7 %; Neutrophils # (A) 3.2 k/uL (1.3-7.7); Neutrophils % (A) 57 %; Platelet Count 320 k/uL (150-450); RBC 4.39 m/uL (3.80-5.40); RDW 13.6 % (11.5-15.5); WBC 5.7 k/uL (3.8-10.6)
== END 2021-08-16 14:57 | disposition home or self-care (01) ==
LOC: EC 12:04
DX: J44.9 Chronic obstructive pulmonary disease, unspecified (principal); R53.1 Weakness; E11.9 Type 2 diabetes mellitus without complications; Z88.8 Allergy status to other drugs, medicaments and biological substances; Z86.73 Personal history of transient ischemic attack (TIA), and cerebral infarction without residual deficits; Z79.51 Long term (current) use of inhaled steroids; Z79.899 Other long term (current) drug therapy; Z20.822 Contact with and (suspected) exposure to COVID-19
CPT/HCPCS: 36415; 93005; 83880; 80053; 83605; 83735; 84484; 85025; 85610; 85730; 87635; 71046; 99285; 96374; J2930

== ENCOUNTER → 2022-03-26 | Outpatient (CLI) | payer MEDICARE, OTHER ==
[2022-03-26 18:19] LABS: HCT 37.6 % (37.2-46.3); HGB 11.5 g/dL (12.0-15.0); MCH 28.3 pg (27.0-32.0); MCHC 30.6 g/dL (32.0-37.0); MCV 92.4 fL (80.0-97.0); NRBC Per 100 WBC 0 /100 WBCS (0.0-0.0); Platelet Count 348 X 10*3/uL (140-440); RBC 4.07 X 10*6/uL (4.10-5.20); RDW 22.6 % (11.5-14.5); WBC 7.44 X 10*3/uL (4.50-10.00)
[2022-03-26 18:30] LABS: African American GFR (CKD) 86.3 (60.0-200.0); Albumin 4.1 g/dL (3.8-4.9); Albumin/Globulin Ratio 2.16 (1.60-3.17); Anion Gap 12.4 mmol/L (10.00-18.00); BUN/Creat Ratio 16.19 Ratio (12.00-20.00); Blood Urea Nitrogen 12.4 mg/dL (9.0-27.0); Calcium 9.3 mg/dL (8.7-10.3); Carbon Dioxide 25.8 mmol/L (20.0-27.5); Globulin 1.9 g/dL (1.6-3.3); Non-African American GFR(CKD) 74.4 (60.0-200.0); Potassium 4.1 mmol/L (3.5-5.5); Total Bilirubin 0.4 mg/dL (0.30-1.20); Total Protein 5.9 g/dL (6.2-8.2)
[2022-03-26 19:35] LABS: Anisocytosis (M) 2+; Basophils # (A) 0.05 X 10*3/uL (0.00-0.10); Basophils % (A) 0.7 %; Eosinophils # (A) 0.43 X 10*3/uL (0.04-0.35); Eosinophils % (A) 5.8 %; Immature Grans, Automated 0.8 %; Lymphocytes # (A) 1.57 X 10*3/uL (0.90-5.00); Lymphocytes % (A) 21.1 %; Monocytes # (A) 0.53 X 10*3/uL (0.20-1.00); Monocytes % (A) 7.1 %; Neutrophils % (A) 64.5 %
== END | disposition home or self-care (01) ==
LOC: LABWHC1 11:20
PROVIDERS: ATTEND Internal Medicine Hematology & Oncology
DX: D50.9 Iron deficiency anemia, unspecified (principal)
CPT/HCPCS: 36415; 80053; 82728; 83540; 85025

== ENCOUNTER → 2022-04-30 | Outpatient (CLI) | payer MEDICARE, OTHER ==
[2022-04-30 17:49] LABS: Basophils # (A) 0.06 X 10*3/uL (0.00-0.10); Basophils % (A) 0.9 %; Eosinophils # (A) 0.35 X 10*3/uL (0.04-0.35); Eosinophils % (A) 5.1 %; HCT 35.3 % (37.2-46.3); HGB 11.5 g/dL (12.0-15.0); Immature Grans, Automated 0.4 %; Lymphocytes # (A) 2.13 X 10*3/uL (0.90-5.00); MCH 30.3 pg (27.0-32.0); MCHC 32.6 g/dL (32.0-37.0); MCV 92.9 fL (80.0-97.0); Mean Platelet Volume 9.9 fL (9.5-12.2); Monocytes # (A) 0.59 X 10*3/uL (0.20-1.00); Monocytes % (A) 8.6 %; NRBC Per 100 WBC 0 /100 WBCS (0.0-0.0); Neutrophils # (A) 3.71 X 10*3/uL (1.80-7.70); Platelet Count 287 X 10*3/uL (140-440); RDW 20.9 % (11.5-14.5); WBC 6.87 X 10*3/uL (4.50-10.00)
[2022-04-30 18:21] LABS: % Iron Saturation 33.39 (12.00-45.00); Iron 91 ug/dL (50-170); Total Iron Binding Capacity 272 ug/dL (228-460)
== END | disposition home or self-care (01) ==
LOC: LABWHC1 13:37
PROVIDERS: ATTEND Internal Medicine
DX: E11.9 Type 2 diabetes mellitus without complications (principal); D64.9 Anemia, unspecified; M85.80 Other specified disorders of bone density and structure, unspecified site
CPT/HCPCS: 36415; 82306; 82607; 82746; 83036; 83540; 83550; 84443; 85025

== ENCOUNTER → 2022-05-01 | Outpatient (CLI) | payer MEDICARE, OTHER ==
[2022-05-01 14:41] LABS: ALT 20 U/L (8-44); AST 24 U/L (13-35); African American GFR (CKD) 87.2 (60.0-200.0); Albumin 3.8 g/dL (3.8-4.9); Albumin/Globulin Ratio 1.83 (1.60-3.17); Alkaline Phosphatase 94 U/L (41-126); Blood Urea Nitrogen 14.8 mg/dL (9.0-27.0); Calcium 9.3 mg/dL (8.7-10.3); Carbon Dioxide 25.3 mmol/L (20.0-27.5); Chloride 106 mmol/L (96-109); Globulin 2.1 g/dL (1.6-3.3); Glucose 103 mg/dL (70-110); LDL Cholesterol,Calculated 102.3 mg/dL (0.0-131.0); Non-African American GFR(CKD) 75.3 (60.0-200.0); Potassium 3.8 mmol/L (3.5-5.5); Sodium 143 mmol/L (135-145); Total Protein 5.9 g/dL (6.2-8.2)
== END | disposition home or self-care (01) ==
LOC: LABWHC1 08:37
PROVIDERS: ATTEND Internal Medicine
DX: E11.9 Type 2 diabetes mellitus without complications (principal); M85.80 Other specified disorders of bone density and structure, unspecified site; D64.9 Anemia, unspecified
CPT/HCPCS: 36415; 80053; 80061

== ENCOUNTER → 2022-12-18 | Outpatient (CLI) | payer MEDICARE, OTHER ==
[2022-12-18 13:02] LABS: African American GFR (CKD) >90 (>60 ml/min/1.73 sqM); Blood Urea Nitrogen 12 mg/dL (7-17); Non-African American GFR(CKD) 88 (>60 ml/min/1.73 sqM)
--- NOTE | 2022-12-18 14:48 | CT ---
EXAMINATION TYPE: CT chest w con DATE OF EXAM: 12/18/2022 COMPARISON: 05/19/2021 HISTORY: chronic cough CT DLP: 225.20 mGycm Automated exposure control for dose reduction was used. TECHNIQUE: CT scan of the chest is performed with IV Contrast, patient injected with 100 mL of Isovue 300. MIP Images are created on CT scanner and reviewed. 3D reconstructed images are created on an independent workstation and reviewed. FINDINGS: LUNGS: The lungs are grossly clear, there is no concerning consolidative pneumonia identified. Ther e is no pleural effusion or pneumothorax seen. The tracheobronchial tree is patent. There is a 5 mm nodule in the right upper lobe vague. Groundglass changes posterior segment right upper lobe axial im age 39) retrospectively stable from the exam of 2020. Mild emphysematous changes. MEDIASTINUM: There are no greater than 1 cm hilar or mediastinal lymph nodes. Heart size is prominent . Atherosclerotic change of the aorta with no evidence of aneurysmal dilation. Mild coronary artery c alcification. OTHER: Severe degenerative disc disease with hypertrophic spurring throughout the visualized vertebr al column. There is interposition of the colon anterior to the liver.. IMPRESSION: 1. Mild COPD with groundglass consolidation in the right lower lobe correlate for a pneumonitis. 2. There is a 5 mm nodule right upper lobe retrospectively stable compared to prior exam and therefor e likely benign. Recommend 12 month follow-up to confirm stability.
== END | disposition home or self-care (01) ==
LOC: RADCTMAIN 12:00
PROVIDERS: ATTEND Internal Medicine
DX: J44.9 Chronic obstructive pulmonary disease, unspecified (principal); R91.1 Solitary pulmonary nodule
CPT/HCPCS: 82565; 84520; 71260; 36415; Q9967

== ENCOUNTER 2023-01-10 02:15 | Emergency (ER) | payer MEDICARE, OTHER ==
[2023-01-10 02:23] VITALS: BP 123/71; PULSE 98; RESP 18; TEMP 98.1
--- NOTE | 2023-01-10 02:50 | ED ---
SOB HPI - General Chief Complaint: Shortness of Breath Stated Complaint: NAZ Time Seen by Provider: 01/10/23 02:24 Source: patient Mode of arrival: wheelchair Limitations: no limitations - History of Present Illness Initial Comments: Patient is a 69-year-old female presenting with chief complaint of shortness of breath. Patient states that about 30 minutes prior to arrival she had acutely worsening shortness of breath. Patient states that normally throughout the winter season she has a chronic cough, states that she has had a worsening cough over the past few weeks. She admits to clear phlegm, though recently did have a bout of green phlegm. No chest pain or palpitations. Patient to take her albuterol inhaler at home prior to arrival which mildly improved symptoms. Patient has a mild amount of lower extremity edema bilaterally which is consistent with her baseline. No abdominal pain, nausea, vomiting. No fevers or chills. - Related Data Home Medications Medication Instructions Recorded Confirmed metFORMIN HCL [Glucophage] 1,000 mg PO BID-W/MEALS 02/26/19 08/16/21 Insulin Glargine [Lantus Vial] 17 unit SQ HS 10/24/19 08/16/21 Budesonide/Formoterol Fumarate 2 puff INHALATION RT-BID 05/19/21 08/16/21 [Symbicort 160-4.5 Mcg Inhaler] Furosemide [Lasix] 20 mg PO DAILY PRN 05/19/21 08/16/21 Indomethacin [Indocin] 25 mg PO BID PRN 05/19/21 08/16/21 Sertraline [Zoloft] 25 mg PO HS 05/19/21 08/16/21 Timolol 0.5% Ophth Soln [Timoptic 1 drop LEFT EYE BID 05/19/21 08/16/21 0.5% Ophth Soln] Budesonide [Pulmicort Flexhaler] 1 puff INHALATION RT-BID 08/16/21 08/16/21 Dextromethorphan Polistirex 60 mg PO BID PRN 08/16/21 08/16/21 [Delsym] lisinopriL [Zestril] 2.5 mg PO DAILY 08/16/21 08/16/21 Previous Rx's Medication Instructions Recorded Azithromycin [Zithromax Z-pack] 0 mg PO DIRECTED #6 tab 08/16/21 predniSONE 50 mg PO DAILY #5 tab 08/16/21 Albuterol Sulfate [Albuterol 1 puff PO Q4-6H PRN #8.5 gm 01/10/23 Sulfate Hfa] Azithromycin [Zithromax Z Pack] 1 tab PO DIRECTED #6 tab 01/10/23 predniSONE 30 mg PO BID 5 Days #30 tab 01/10/23 Allergies Allergy/AdvReac Type Severity Reaction Status Date / Time diphenhydramine AdvReac Hallucinati Verified 08/16/21 13:22 [From Benadryl] ons antihistamines AdvReac Hallucinati Uncoded 08/16/21 13:22 ons Review of Systems ROS Statement: Those systems with pertinent positive or pertinent negative responses have been documented in the HPI. ROS Other: All systems not noted in ROS Statement are negative. Past Medical History Past Medical History: Asthma, Cancer, CVA/TIA, Diabetes Mellitus, Eye Disorder, Osteoarthritis (OA) Additional Past Medical History / Comment(s): Hx cervical cancer 30 yrs ago, laser surgery. Diabetic retinopathy. Hx CVA - undiagnosed 2 yrs ago. Poor balance. History of Any Multi-Drug Resistant Organisms: None Reported Past Surgical History: Joint Replacement Additional Past Surgical History / Comment(s): Bilateral knee replacements. Past Anesthesia/Blood Transfusion Reactions: No Reported Reaction, Motion Sickness Past Psychological History: Anxiety Smoking Status: Never smoker Past Alcohol Use History: Occasional Past Drug Use History: None Reported - Past Family History Sister(s) Family Medical History: Cancer Additional Family Medical History / Comment(s): Breast cancer. General Exam Limitations: no limitations General appearance: alert, in no apparent distress Head exam: Present: atraumatic, normocephalic, normal inspection Eye exam: Present: normal appearance, EOMI. Absent: periorbital swelling Neck exam: Present: normal inspection, full ROM Respiratory exam: Present: normal lung sounds bilaterally. Absent: respiratory distress, wheezes, rales, rhonchi, stridor Cardiovascular Exam: Present: regular rate, normal rhythm, normal heart sounds. Absent: systolic murmur, diastolic murmur, rubs, gallop, clicks Neurological exam: Present: alert, oriented X3, CN II-XII intact Psychiatric exam: Present: normal affect, normal mood Skin exam: Present: warm, dry, intact, normal color. Absent: rash Course Vital Signs 04/22/23 02:21 Temperature 98.1 F Pulse Rate 98 Respiratory 18 Rate Blood Pressure 123/71 O2 Sat by Pulse 94 L Oximetry Medical Decision Making - Medical Decision Making Was pt. sent in by a medical professional or institution (LAUREN Corona, CLINICAL MARKETING MANAGER, urgent care, hospital, or half-way...) When possible be specific @ -No Did you speak to anyone other than the patient for history (EMS, parent, family, police, friend...)? What history was obtained from this source @ -No Did you review nursing and triage notes (agree or disagree)? Why? @ -I reviewed and agree with nursing and triage notes Were old charts reviewed (outside hosp., previous admission, EMS record, old EKG, old radiological studies, urgent care reports/EKG's, half-way records)? Report findings @ -No old charts were reviewed Differential Diagnosis (chest pain, altered mental status, abdominal pain women, abdominal pain men, vaginal bleeding, weakness, fever, dyspnea, syncope, headache, dizziness, GI bleed, back pain, seizure, CVA, palpatations, mental health, musculoskeletal)? @ -MDM Differential Dyspnea: Coronary syndrome, arrhythmia, tamponade, asthma, COPD, pulmonary embolism, pneu monia, pneumothorax, pulmonary effusion, anaphylaxis, diabetic ketoacidosis, flailed chest, pulmonary contusion, diaphragmatic rupture, anemia, neuromuscular this is not meant to be an all-inclusive list. EKG interpreted by me (3pts min.). @ -Sinus rhythm ventricular rate. KS interval 162. QRS 1:30. QT 366. QTc 403. Right bundle branch block. No acute changes from previous EKG X-rays interpreted by me (1pt min.). @ -Chest x-ray shows no acute process CT interpreted by me (1pt min.). @ -None done U/S interpreted by me (1pt. min.). @ -None done What testing was considered but not performed or refused? (CT, X-rays, U/S, labs)? Why? @ -None What meds were considered but not given or refused? Why? @ -None Did you discuss the management of the patient with other professionals (professionals i.e. LAUREN Corona, CLINICAL MARKETING MANAGER, lab, RT, psych nurse, social science instructor, solar water heater installer, teacher, airport operations officer, leather case finisher)? Give summary @ -No Was smoking cessation discussed for >3mins.? @ -No Was critical care preformed (if so, how long)? @ -No Were there social determinants of health that impacted care today? How? (Homelessness, low income, unemployed, alcoholism, drug addiction, transportation, low edu. Level, literacy, decrease access to med. care, longterm, rehab)? @ -No Was there de-escalation of care discussed even if they declined (Discuss DNR or withdrawal of care, Hospice)? DNR status @ -No What co-morbidities impacted this encounter? (DM, HTN, Smoking, COPD, CAD, Cancer, CVA, ARF, Chemo, Hep., AIDS, mental health diagnosis, sleep apnea, morbid obesity)? @ -None Was patient admitted / discharged? Hospital course, mention meds given and route, prescriptions, significant lab abnormalities, going to OR and other pertinent info. @ -Patient is a 77-year-old female presenting with chief complaint of dyspnea. Patient has had a productive cough for several weeks. She did use her albuterol inhaler prior to arrival which was somewhat helpful. On physical examination heart and lungs are clear to auscultation. Lab work shows no leukocytosis or anemia. Negative troponin and BNP. Patient is negative for influenza, RSV, and Covid. Chest x-ray shows no acute process. Patient will be treated for acute bronchitis. She started on prednisone and azithromycin, she is provided with a refill of her albuterol inhaler. Instructed to follow-up with PCP. Follow-up with PCP. Report back to ER with any new or worsening symptoms. Discussed return parameters and answered all questions. Patient conveyed verbal understanding and agreed to the plan. I discussed this case in detail with my attending Dr. Swanson Undiagnosed new problem with uncertain prognosis? @ -No Drug Therapy requiring intensive monitoring for toxicity (Heparin, Nitro, Insulin, Cardizem)? @ -No Were any procedures done? @ -No Diagnosis/symptom? @ -Acute bronchitis Acute, or Chronic, or Acute on Chronic? @ -Acute Uncomplicated (without systemic symptoms) or Complicated (systemic symptoms)? @ -Uncomplicated Side effects of treatment? @ -No Exacerbation, Progression, or Severe Exacerbation? @ -No Poses a threat to life or bodily function? How? (Chest pain, USA, ME, pneumonia, PE, COPD, DKA, ARF, appy, cholecystitis, CVA, Diverticulitis, Homicidal, Suicidal, threat to staff... and all critical care pts) @ -No - Lab Data Result diagrams: 01/10/23 02:34 01/10/23 02:34 Lab Results 01/10/23 01/10/23 01/10/23 Range/Units 02:34 02:34 02:34 WBC 7.3 (3.8-10.6) k/uL RBC 4.05 (3.80-5.40) m/uL Hgb 12.5 (11.4-16.0) gm/dL Hct 38.1 (34.0-46.0) % MCV 94.1 (80.0-100.0) fL MCH 30.9 (25.0-35.0) pg MCHC 32.9 (31.0-37.0) g/dL RDW 13.3 (11.5-15.5) % Plt Count 252 (150-450) k/uL MPV 7.2 Neutrophils % 53 % Lymphocytes % 34 % Monocytes % 6 % Eosinophils % 5 % Basophils % 1 % Neutrophils # 3.9 (1.3-7.7) k/uL Lymphocytes # 2.4 (1.0-4.8) k/uL Monocytes # 0.4 (0-1.0) k/uL Eosinophils # 0.4 (0-0.7) k/uL Basophils # 0.0 (0-0.2) k/uL PT 9.4 (9.0-12.0) sec INR 0.9 (<1.2) APTT 24.3 (22.0-30.0) sec Sodium 138 (137-145) mmol/L Potassium 4.1 (3.5-5.1) mmol/L Chloride 106 (98-107) mmol/L Carbon Dioxide 24 (22-30) mmol/L Anion Gap 8 mmol/L BUN 16 (7-17) mg/dL Creatinine 0.60 (0.52-1.04) mg/dL Est GFR (CKD-EPI)AfAm >90 (>60 ml/min/1.73 sqM) Est GFR (CKD-EPI)NonAf 88 (>60 ml/min/1.73 sqM) Glucose 115 H (74-99) mg/dL Plasma Lactic Acid Juanito (0.7-2.0) mmol/L Calcium 8.6 (8.4-10.2) mg/dL Magnesium 2.0 (1.6-2.3) mg/dL Total Bilirubin 0.4 (0.2-1.3) mg/dL AST 32 (14-36) U/L ALT 21 (4-34) U/L Alkaline Phosphatase 113 (38-126) U/L Troponin I (0.000-0.034) ng/mL NT-Pro-B Natriuret Pep pg/mL Total Protein 5.9 L (6.3-8.2) g/dL Albumin 3.6 (3.5-5.0) g/dL Urine Color Urine Appearance (Clear) Urine pH (5.0-8.0) Ur Specific Lithia (1.001-1.035) Urine Protein (Negative) Urine Glucose (UA) (Negative) Urine Ketones (Negative) Urine Blood (Negative) Urine Nitrite (Negative) Urine Bilirubin (Negative) Urine Urobilinogen (<2.0) mg/dL Ur Leukocyte Esterase (Negative) Urine WBC (0-5) /hpf Influenza Type A (PCR) (Not Detectd) Influenza Type B (PCR) (Not Detectd) RSV (PCR) (Not Detectd) SARS-CoV-2 (PCR) (Not Detectd) 01/10/23 01/10/23 01/10/23 Range/Units 02:34 02:34 02:34 WBC (3.8-10.6) k/uL RBC (3.80-5.40) m/uL Hgb (11.4-16.0) gm/dL Hct (34.0-46.0) % MCV (80.0-100.0) fL MCH (25.0-35.0) pg MCHC (31.0-37.0) g/dL RDW (11.5-15.5) % Plt Count (150-450) k/uL MPV Neutrophils % % Lymphocytes % % Monocytes % % Eosinophils % % Basophils % % Neutrophils # (1.3-7.7) k/uL Lymphocytes # (1.0-4.8) k/uL Monocytes # (0-1.0) k/uL Eosinophils # (0-0.7) k/uL Basophils # (0-0.2) k/uL PT (9.0-12.0) sec INR (<1.2) APTT (22.0-30.0) sec Sodium (137-145) mmol/L Potassium (3.5-5.1) mmol/L Chloride (98-107) mmol/L Carbon Dioxide (22-30) mmol/L Anion Gap mmol/L BUN (7-17) mg/dL Creatinine (0.52-1.04) mg/dL Est GFR (CKD-EPI)AfAm (>60 ml/min/1.73 sqM) Est GFR (CKD-EPI)NonAf (>60 ml/min/1.73 sqM) Glucose (74-99) mg/dL Plasma Lactic Acid Juaniot 1.9 (0.7-2.0) mmol/L Calcium (8.4-10.2) mg/dL Magnesium (1.6-2.3) mg/dL Total Bilirubin (0.2-1.3) mg/dL AST (14-36) U/L ALT (4-34) U/L Alkaline Phosphatase (38-126) U/L Troponin I <0.012 (0.000-0.034) ng/mL NT-Pro-B Natriuret Pep 47 pg/mL Total Protein (6.3-8.2) g/dL Albumin (3.5-5.0) g/dL Urine Color Urine Appearance (Clear) Urine pH (5.0-8.0) Ur Specific Lithia (1.001-1.035) Urine Protein (Negative) Urine Glucose (UA) (Negative) Urine Ketones (Negative) Urine Blood (Negative) Urine Nitrite (Negative) Urine Bilirubin (Negative) Urine Urobilinogen (<2.0) mg/dL Ur Leukocyte Esterase (Negative) Urine WBC (0-5) /hpf Influenza Type A (PCR) (Not Detectd) Influenza Type B (PCR) (Not Detectd) RSV (PCR) (Not Detectd) SARS-CoV-2 (PCR) (Not Detectd) 01/10/23 01/10/23 Range/Units 02:50 03:30 WBC (3.8-10.6) k/uL RBC (3.80-5.40) m/uL Hgb (11.4-16.0) gm/dL Hct (34.0-46.0) % MCV (80.0-100.0) fL MCH (25.0-35.0) pg MCHC (31.0-37.0) g/dL RDW (11.5-15.5) % Plt Count (150-450) k/uL MPV Neutrophils % % Lymphocytes % % Monocytes % % Eosinophils % % Basophils % % Neutrophils # (1.3-7.7) k/uL Lymphocytes # (1.0-4.8) k/uL Monocytes # (0-1.0) k/uL Eosinophils # (0-0.7) k/uL Basophils # (0-0.2) k/uL PT (9.0-12.0) sec INR (<1.2) APTT (22.0-30.0) sec Sodium (137-145) mmol/L Potassium (3.5-5.1) mmol/L Chloride (98-107) mmol/L Carbon Dioxide (22-30) mmol/L Anion Gap mmol/L BUN (7-17) mg/dL Creatinine (0.52-1.04) mg/dL Est GFR (CKD-EPI)AfAm (>60 ml/min/1.73 sqM) Est GFR (CKD-EPI)NonAf (>60 ml/min/1.73 sqM) Glucose (74-99) mg/dL Plasma Lactic Acid Juanito (0.7-2.0) mmol/L Calcium (8.4-10.2) mg/dL Magnesium (1.6-2.3) mg/dL Total Bilirubin (0.2-1.3) mg/dL AST (14-36) U/L ALT (4-34) U/L Alkaline Phosphatase (38-126) U/L Troponin I (0.000-0.034) ng/mL NT-Pro-B Natriuret Pep pg/mL Total Protein (6.3-8.2) g/dL Albumin (3.5-5.0) g/dL Urine Color Yellow Urine Appearance Clear (Clear) Urine pH 7.0 (5.0-8.0) Ur Specific Lithia 1.013 (1.001-1.035) Urine Protein Negative (Negative) Urine Glucose (UA) Negative (Negative) Urine Ketones Negative (Negative) Urine Blood Negative (Negative) Urine Nitrite Negative (Negative) Urine Bilirubin Negative (Negative) Urine Urobilinogen <2.0 (<2.0) mg/dL Ur Leukocyte Esterase Trace H (Negative) Urine WBC 1 (0-5) /hpf Influenza Type A (PCR) Not Detected (Not Detectd) Influenza Type B (PCR) Not Detected (Not Detectd) RSV (PCR) Not Detected (Not Detectd) SARS-CoV-2 (PCR) Not Detected (Not Detectd) Disposition Clinical Impression: Bronchitis Disposition: HOME SELF-CARE Condition: Good Instructions (If sedation given, give patient instructions): Acute Bronchitis (ED) Additional Instructions: Follow-up with PCP. Report back to ER with any new or worsening symptoms. Take medication as prescribed. Prescriptions: Albuterol Sulfate [Albuterol Sulfate Hfa] 1 puff PO Q4-6H PRN #8.5 gm PRN Reason: Shortness Of Breath predniSONE 30 mg PO BID 5 Days #30 tab Azithromycin [Zithromax Z Pack] 1 tab PO DIRECTED #6 tab Is patient prescribed a controlled substance at d/c from ED?: No Referrals: Dimas Catherine MD [Primary Care Provider] - 1-2 days Time of Disposition: 03:59
[2023-01-10 03:05] LABS: Basophils % (A) 1 %; Eosinophils # (A) 0.4 k/uL (0-0.7); Eosinophils % (A) 5 %; HCT 38.1 % (34.0-46.0); HGB 12.5 gm/dL (11.4-16.0); Lymphocytes # (A) 2.4 k/uL (1.0-4.8); Lymphocytes % (A) 34 %; MCH 30.9 pg (25.0-35.0); MCHC 32.9 g/dL (31.0-37.0); MCV 94.1 fL (80.0-100.0); Mean Platelet Volume 7.2; Monocytes # (A) 0.4 k/uL (0-1.0); Monocytes % (A) 6 %; Neutrophils # (A) 3.9 k/uL (1.3-7.7); Neutrophils % (A) 53 %; Platelet Count 252 k/uL (150-450); RBC 4.05 m/uL (3.80-5.40); RDW 13.3 % (11.5-15.5); WBC 7.3 k/uL (3.8-10.6)
[2023-01-10 03:10] LABS: INR 0.9 (<1.2); Partial Thromboplastin Time 24.3 sec (22.0-30.0); Prothrombin Time 9.4 sec (9.0-12.0)
[2023-01-10 03:12] LABS: ALT 21 U/L (4-34); AST 32 U/L (14-36); African American GFR (CKD) >90 (>60 ml/min/1.73 sqM); Albumin 3.6 g/dL (3.5-5.0); Alkaline Phosphatase 113 U/L (38-126); Anion Gap 8 mmol/L; Blood Urea Nitrogen 16 mg/dL (7-17); Calcium 8.6 mg/dL (8.4-10.2); Carbon Dioxide 24 mmol/L (22-30); Chloride 106 mmol/L (98-107); Glucose 115 mg/dL (74-99); Non-African American GFR(CKD) 88 (>60 ml/min/1.73 sqM); Potassium 4.1 mmol/L (3.5-5.1); Sodium 138 mmol/L (137-145); Total Bilirubin 0.4 mg/dL (0.2-1.3); Total Protein 5.9 g/dL (6.3-8.2)
[2023-01-10 03:58] LABS: Appearance,Urine Clear (Clear); Bilirubin,Urine Negative (Negative); Blood,Urine Negative (Negative); Color,Urine Yellow; Glucose,Urine (UA) Negative (Negative); Ketones,Urine Negative (Negative); Leukocyte Esterase,Urine Trace (Negative); Nitrite,Urine Negative (Negative); Protein,Urine Negative (Negative); Specific Gravity,Urine 1.013 (1.001-1.035); Urobilinogen,Urine <2.0 mg/dL (<2.0); WBC,Urine 1 /hpf (0-5)
--- NOTE | 2023-01-10 06:08 | XR ---
EXAMINATION TYPE: XR chest 2V DATE OF EXAM: 01/10/2023 COMPARISON: 10/31/2022 HISTORY: Shortness of breath TECHNIQUE: Frontal and lateral views of the chest are obtained. FINDINGS: Scattered senescent parenchymal changes noted. Hyperinflation compatible with COPD. No evidence for infiltrate. No evidence for atelectasis. Heart size is stable. Mediastinal structures are stable and grossly unremarkable. No evidence for hilar prominence. Degenerative changes dorsal spine. IMPRESSION: 1. No evidence for acute pulmonary disease.
== END 2023-01-10 04:23 | disposition home or self-care (01) ==
LOC: EC 02:15
DX: J21.9 Acute bronchiolitis, unspecified (principal); E11.9 Type 2 diabetes mellitus without complications; J45.909 Unspecified asthma, uncomplicated; F41.9 Anxiety disorder, unspecified; Z79.4 Long term (current) use of insulin; Z79.84 Long term (current) use of oral hypoglycemic drugs; Z79.899 Other long term (current) drug therapy; Z88.8 Allergy status to other drugs, medicaments and biological substances; Z88.6 Allergy status to analgesic agent; Z79.51 Long term (current) use of inhaled steroids; Z86.73 Personal history of transient ischemic attack (TIA), and cerebral infarction without residual deficits; Z20.822 Contact with and (suspected) exposure to COVID-19
CPT/HCPCS: 36415; 71046; 80053; 81001; 83605; 83735; 83880; 84484; 85025; 85610; 85730; 87636; 93005; 99285

== ENCOUNTER → 2023-02-18 | Outpatient (CLI) | payer MEDICARE, OTHER ==
[2023-02-18 16:45] LABS: Basophils # (A) 0.1 k/uL (0-0.2); Basophils % (A) 1 %; Eosinophils # (A) 0.2 k/uL (0-0.7); Eosinophils % (A) 3 %; HCT 38.7 % (34.0-46.0); HGB 12.3 gm/dL (11.4-16.0); Lymphocytes # (A) 2.5 k/uL (1.0-4.8); Lymphocytes % (A) 35 %; MCH 29.8 pg (25.0-35.0); MCHC 31.9 g/dL (31.0-37.0); MCV 93.7 fL (80.0-100.0); Mean Platelet Volume 7.6; Monocytes # (A) 0.5 k/uL (0-1.0); Monocytes % (A) 6 %; Neutrophils # (A) 3.8 k/uL (1.3-7.7); Neutrophils % (A) 53 %; Platelet Count 331 k/uL (150-450); RBC 4.13 m/uL (3.80-5.40); RDW 13.8 % (11.5-15.5); WBC 7.2 k/uL (3.8-10.6)
[2023-02-18 16:51] LABS: Total Eosinophil Count 231 #EOS/uL (150-300)
[2023-02-18 19:53] LABS: African American GFR (CKD) 95.5 (60.0-200.0); Albumin 4.1 g/dL (3.8-4.9); Albumin/Globulin Ratio 1.95 (1.60-3.17); Anion Gap 8.6 mmol/L (10.00-18.00); BUN/Creat Ratio 22.57 Ratio (12.00-20.00); Blood Urea Nitrogen 15.8 mg/dL (9.0-27.0); Calcium 9.5 mg/dL (8.7-10.3); Carbon Dioxide 28.4 mmol/L (20.0-27.5); Globulin 2.1 g/dL (1.6-3.3); Non-African American GFR(CKD) 82.4 (60.0-200.0); Potassium 4.4 mmol/L (3.5-5.5); Total Bilirubin 0.3 mg/dL (0.30-1.20); Total Protein 6.2 g/dL (6.2-8.2)
[2023-02-19 07:44] LABS: Alternaria alternata IgE <0.10 kU/L; Aspergillus fumagatus IgE 1.68 kU/L; Birch IgE 0.23 kU/L; Cat Epith & Dander IgE 0.28 kU/L; Cladosporian herbarum IgE <0.10 kU/L; Cockroach IgE 0.14 kU/L; Dermato. farinae IgE 0.25 kU/L; Dog Dander IgE <0.10 kU/L; Elm IgE 0.11 kU/L; Maple (Box Elder) IgE 1.49 kU/L; Oak IgE 0.51 kU/L; Ragweed,Common IgE 0.24 kU/L; Red Top (Bentgrass) IgE 1.17 kU/L
== END | disposition home or self-care (01) ==
LOC: LABWHC1 15:37
PROVIDERS: ATTEND Internal Medicine
DX: M13.80 Other specified arthritis, unspecified site (principal); R05.3 Chronic cough
CPT/HCPCS: 36415; 80053; 82785; 85008; 85025; 86003

== ENCOUNTER 2023-04-18 20:53 | Emergency (ER) | payer MEDICARE, OTHER ==
[2023-04-18 21:03] LABS: Glucose,Whole Blood 82 mg/dL (70-110)
[2023-04-18 21:04] VITALS: BP 135/85; PULSE 74; RESP 14; TEMP 98.1
== END 2023-04-18 21:24 | disposition left against medical advice (07) ==
LOC: EC 20:53
DX: E11.9 Type 2 diabetes mellitus without complications (principal); Z53.21 Procedure and treatment not carried out due to patient leaving prior to being seen by health care provider
CPT/HCPCS: 36415; 99499

== ENCOUNTER → 2023-05-18 | Outpatient (CLI) | payer MEDICARE, OTHER ==
--- NOTE | 2023-05-18 14:45 | XR ---
EXAMINATION TYPE: XR thoracic spine complete DATE OF EXAM: 05/18/2023 1:56 PM INDICATION: Patient age:Female; 78 years old; Reason for study: M54.6; [facility]. COMPARISON: Chest radiograph 01/08/2023 TECHNIQUE: 3 views of the thoracic spine in frontal, lateral, Schwimmer's projections. FINDINGS: No evidence of acute fracture. No vertebral body height loss. Multilevel disc space narrowing with en dplate sclerosis and anterior osteophytosis. There is normal alignment of the thoracic vertebral bodi es. Cholecystectomy clips in right upper quadrant. IMPRESSION: 1. No acute osseous pathology. 2. Mild multilevel degenerative disc disease.
== END | disposition home or self-care (01) ==
LOC: RADXRMAIN 13:30
PROVIDERS: ATTEND Internal Medicine
DX: M51.34 Other intervertebral disc degeneration, thoracic region (principal)
CPT/HCPCS: 72072

== ENCOUNTER → 2023-05-20 | Outpatient (CLI) | payer MEDICARE, OTHER ==
--- NOTE | 2023-05-20 13:52 | CT ---
EXAMINATION TYPE: CT thoracic spine wo con CT DLP: 1102 mGycm, Automated exposure control for dose reduction was used. DATE OF EXAM: 05/20/2023 1:19 PM COMPARISON: Thoracic spine radiograph 05/18/2023, CT chest 12/18/2022. CLINICAL INDICATION:Female, 78 years old with history of M54.6 PAIN IN THORACIC SPINE; PHH, mid back pain, no injury TECHNIQUE: Axial images of the thoracic spine were obtained without contrast. Coronal and sagittal re formats were performed. FINDINGS: The vertebral bodies have preserved heights. No acute fracture. Grade 1 anterolisthesis of T1 on T2 and T2 on T3. Mild retrolisthesis of T12 on L1. Multilevel degenerative disc disease with disc space narrowing, endplate sclerosis, vacuum disc disease, and anterior osteophytosis. Multilevel Schmorl's nodes. Broad-based disc bulge at L1-L2 and L2-L3 with mild effacement of the intrathecal sac. Posterior disc osteophyte complex at T12-L1 causing mild to moderate central canal stenosis. Broad-based disc bulge at T11-T12 with minimal effacement of the anterior thecal sac. Posterior disc osteophyte complex at T7-T8 without significant effacement of the anterior thecal sac. Moderate to severe bilateral neural foraminal stenosis at T12-L1. Small hiatal hernia. Post cholecystectomy changes. IMPRESSION: 1. No acute fracture. 2. Grade 1 anterolisthesis of T1-T2 and T2 on T3 with mild retrolisthesis of T12 on L1. 3. Multilevel degenerative disc disease most pronounced at T12-L1 with mild to moderate central bettina l stenosis and moderate to severe bilateral neural foraminal stenosis.
== END | disposition home or self-care (01) ==
LOC: RADCTMAIN 12:32
PROVIDERS: ATTEND Internal Medicine
DX: M51.34 Other intervertebral disc degeneration, thoracic region (principal); M99.72 Connective tissue and disc stenosis of intervertebral foramina of thoracic region; M43.14 Spondylolisthesis, thoracic region
CPT/HCPCS: 72128

== ENCOUNTER → 2023-06-30 | Outpatient (CLI) | payer MEDICARE, OTHER ==
[2023-06-30 19:58] LABS: Basophils # (A) 0.07 X 10*3/uL (0.00-0.10); Basophils % (A) 0.9 %; Eosinophils % (A) 5.3 %; HCT 37.8 % (37.2-46.3); HGB 11.9 d/dL (12.0-15.0); Lymphocytes # (A) 2.22 X 10*3/uL (0.90-5.00); Lymphocytes % (A) 29.2 %; MCH 30.4 pg (27.0-32.0); MCHC 31.5 d/dL (32.0-37.0); MCV 96.4 FL (80.0-97.0); Mean Platelet Volume 9.8 FL (9.5-12.2); Monocytes # (A) 0.59 X 10*3/uL (0.20-1.00); Monocytes % (A) 7.8 %; NRBC Per 100 WBC 0 X 10*3/uL (0.00-0.01); Neutrophils # (A) 4.31 X 10*3/uL (1.80-7.70); Neutrophils % (A) 56.5 %; Platelet Count 327 X 10*3/uL (140-440); RBC 3.92 X 10*6/uL (4.10-5.20); WBC 7.61 X 10*3/uL (4.50-10.00)
[2023-06-30 20:41] LABS: ALT 18 U/L (8-44); AST 24 U/L (13-35); Albumin 4.2 d/dL (3.8-4.9); Albumin/Globulin Ratio 2.21 Ratio (1.60-3.17); Alkaline Phosphatase 95 U/L (41-126); BUN/Creat Ratio 20.43 Ratio (12.00-20.00); Blood Urea Nitrogen 14.3 mg/dL (9.0-27.0); Calcium 9.4 mg/dL (8.7-10.3); Carbon Dioxide 23.6 mmol/L (21.6-31.8); Chloride 104 mmol/L (96-109); Globulin 1.9 d/dL (1.6-3.3); Glucose 76 mg/dL (70-110); Iron 77 UG/DL (50-170); Potassium 4.2 mmol/L (3.5-5.5); Sodium 141 mmol/L (135-145); Total Bilirubin 0.4 mg/dL (0.3-1.2); Total Protein 6.1 d/dL (6.2-8.2)
== END | disposition home or self-care (01) ==
LOC: LABWHC1 12:52
PROVIDERS: ATTEND Internal Medicine Hematology & Oncology
DX: D50.9 Iron deficiency anemia, unspecified (principal); Z91.81 History of falling
CPT/HCPCS: 36415; 80053; 82728; 83540; 85025

== ENCOUNTER → 2023-07-21 | Outpatient (CLI) | payer MEDICARE, OTHER ==
--- NOTE | 2023-07-23 09:06 | MR ---
EXAMINATION TYPE: MR cristiano/lsjames wo con DATE OF EXAM: 07/21/2023 10:12 PM CLINICAL INDICATION:Female, 78 years old with history of M54.50. M47.896, M54.6; PHH, Mid and lower b ack pain, Rt hip pain, Hx cervical cancer 50+yrs ago COMPARISON: 06/22/2023. TECHNIQUE: Multi planar, multi sequence imaging was performed utilizing: T1-weighted, T2-weighted, a nd turbo inversion recovery imaging of the thoracic and lumbar spine. IV Contrast: None. FINDINGS: Alignment: The thoracic and lumbar vertebral bodies have preserved heights. Increased kyphotic curvat ure of the thoracic spine. There is mild scoliosis changes. Grade 1 anterolisthesis of T1 on T2 and T 2 on T3 and T3 on T4. Grade 2 anterolisthesis of L4 and L5. Cord: The conus medullaris and the distal spinal cord appear unremarkable with regards to their signa l intensity and morphology. Bones/Discs: Degeneration changes with Modic endplate changes worse at T12-L1 with disc space loss, r eactive bony edema, osteophytes and facet joint arthropathy. THORACIC: T10-T11 Facet joint arthropathy with moderate bilateral neural foraminal stenosis. Spinal canal is p atent. The remainder of the neural foramen appear patent throughout the thoracic spine. The spinal ca nal is patent without evidence for high-grade stenosis. LUMBAR: T12-L1: No significant degeneration changes at this level with disc height loss and central disc bulg ing with mild spinal canal stenosis. There is severe right and moderate to severe left neural foramin al stenosis. L1-L2: Disc bulge and facet joint arthropathy result in mild spinal canal and mild bilateral neural f oraminal stenosis. L2-L3: Disc bulge and facet joint arthropathy result in mild spinal canal and moderate bilateral neur al foraminal stenosis. L3-L4: Disc bulge and facet joint arthropathy result in mild spinal canal and mild bilateral neural f oraminal stenosis. L4-L5: Disc uncovering from grade 2 anterolisthesis and facet joint arthropathy with mild to moderate spinal canal stenosis and severe bilateral neural foraminal stenosis. L5-S1: The disc is rounded posterior morphology without significant spinal canal stenosis. Facet join t arthropathy with moderate neural foraminal stenosis. Other findings: None. IMPRESSION: 1. Degeneration changes of the spine which are worse at T12-L1 with disc bulge with mild spinal bettina l stenosis and severe right and moderate to severe left neural foraminal stenosis. 2. Grade 2 anterolisthesis of L4 and L5 with severe bilateral neural foraminal stenosis and mild to moderate spinal canal stenosis. 3. Grade 1 anterolisthesis of T1 on T2 and T2 on T3 and T3 on T4.
== END | disposition home or self-care (01) ==
LOC: RADMRIMAIN 20:45
PROVIDERS: ATTEND Orthopaedic Surgery
DX: M47.896 Other spondylosis, lumbar region (principal); M43.16 Spondylolisthesis, lumbar region; M43.14 Spondylolisthesis, thoracic region; M48.061 Spinal stenosis, lumbar region without neurogenic claudication; M51.35 Other intervertebral disc degeneration, thoracolumbar region; M99.73 Connective tissue and disc stenosis of intervertebral foramina of lumbar region
CPT/HCPCS: 72146; 72148

== ENCOUNTER → 2023-08-26 | Outpatient (CLI) | payer MEDICARE, OTHER ==
--- NOTE | 2023-08-27 07:37 | US ---
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 Indirect Doppler criteria was utilized. FINDINGS: EXAM MEASUREMENTS: RIGHT: Peak Systolic Velocity (PSV) cm/sec ----- Right CCA: 107.0 ----- Right ICA: 107.6 ----- Right ECA: 87.1 ICA/CCA ratio: 1.0 RIGHT: End Diastole cm/sec ----- Right CCA: 24.1 ----- Right ICA: 30.0 ----- Right ECA: 11.5 LEFT: Peak Systolic Velocity (PSV) cm/sec ----- Left CCA: 96.8 ----- Left ICA: 81.3 ----- Left ECA: 85.6 ICA/CCA ratio: 0.8 LEFT: End Diastole cm/sec ----- Left CCA: 19.2 ----- Left ICA: 23.1 ----- Left ECA: 7.1 VERTEBRALS (direction of flow): Right Vertebral: Antegrade Left Vertebral: Antegrade Rhythm: Normal MAINFRAME PROGRAMMER NOTES: No plaque or stenosis seen IMPRESSION: No evidence for hemodynamically significant stenosis. Criteria for Assigning % of Stenosis / Diameter reduction (Estimation based on the indirect measurements of the internal carotid artery velocities (ICA PSV). 1. Normal (no stenosis)=ICA PSV < 125 cm/s: ratio < 2.0: ICA EDV<40 cm/s. 2. Less than 50% stenosis=ICA PSV < 125 cm/s: ratio < 2.0: ICA EDV<40 cm/s. 3. 50 to 69% stenosis=ICA PSV of 125 to 230 cm/s: ration 2.0 ? 4.0: ICA EDV 40-100 cm/s. 4. Greater than 70% stenosis to near occlusion= ICA PSV > 230 cm/s: ratio > 4.0: ICA EDV > 100 cm/s. 5. Near occlusion= ICA PSV velocities may be low or undetectable: variable ratio and ICA EDV. 6. Total occlusion=unable to detect flow.
== END | disposition home or self-care (01) ==
LOC: RADUSWWP 16:58
PROVIDERS: ATTEND Internal Medicine
DX: I65.22 Occlusion and stenosis of left carotid artery (principal)
CPT/HCPCS: 93880

== ENCOUNTER 2023-09-30 21:48 | Emergency (ER) | payer MEDICAID, OTHER ==
[2023-09-30 22:02] LABS: Glucose,Whole Blood 132 mg/dL (70-110)
[2023-09-30 22:19] VITALS: BP 125/73; PULSE 93; RESP 18; TEMP 97.7
[2023-09-30 22:31] LABS: Basophils # (A) 0.1 k/uL (0-0.2); Basophils % (A) 1 %; Eosinophils # (A) 0.5 k/uL (0-0.7); Eosinophils % (A) 8 %; HCT 38.3 % (34.0-46.0); HGB 13.1 gm/dL (11.4-16.0); Lymphocytes # (A) 2.4 k/uL (1.0-4.8); Lymphocytes % (A) 37 %; MCH 31.8 pg (25.0-35.0); MCHC 34.1 g/dL (31.0-37.0); MCV 93.1 fL (80.0-100.0); Monocytes # (A) 0.5 k/uL (0-1.0); Monocytes % (A) 7 %; Neutrophils # (A) 2.9 k/uL (1.3-7.7); Neutrophils % (A) 45 %; Platelet Count 321 k/uL (150-450); RBC 4.11 m/uL (3.80-5.40); RDW 13.2 % (11.5-15.5); WBC 6.5 k/uL (3.8-10.6)
--- NOTE | 2023-09-30 22:38 | XR ---
EXAM: XR Chest, 2 Views CLINICAL HISTORY: ITS.REASON XR Reason: altered mental status TECHNIQUE: Frontal and lateral views of the chest. COMPARISON: No relevant prior studies available. FINDINGS: Lungs: Unremarkable. No consolidation. Pleural space: Unremarkable. No pneumothorax. Heart: Unremarkable. No cardiomegaly. Mediastinum: Unremarkable. Normal mediastinal contour. Bones/joints: Unremarkable. No acute fracture. Cholecystectomy clips. IMPRESSION: No focal infiltrate.
[2023-09-30 22:42] LABS: ALT 17 U/L (4-34); African American GFR (CKD) >90 (>60 ml/min/1.73 sqM); Albumin 3.7 g/dL (3.5-5.0); Anion Gap 9 mmol/L; Blood Urea Nitrogen 16 mg/dL (7-17); Calcium 9.1 mg/dL (8.4-10.2); Carbon Dioxide 24 mmol/L (22-30); Chloride 104 mmol/L (98-107); Glucose 131 mg/dL (74-99); Non-African American GFR(CKD) 79 (>60 ml/min/1.73 sqM); Sodium 137 mmol/L (137-145); Total Bilirubin 0.4 mg/dL (0.2-1.3); Total Protein 6.3 g/dL (6.3-8.2)
--- NOTE | 2023-09-30 22:46 | CT ---
EXAM: CT Head Without Intravenous Contrast CLINICAL HISTORY: ITS.REASON CT Reason: altered mental status TECHNIQUE: Axial computed tomography images of the head/brain without intravenous contrast. CTDI is 49.1 mGy and DLP is 1153.4 mGy-cm. This CT exam was performed using one or more of the following dose reduction techniques: automated exposure control, adjustment of the mA and/or kV according to patient size, and/or use of iterative reconstruction technique. COMPARISON: No relevant prior studies available. FINDINGS: No acute intracranial hemorrhage. No midline shift or mass effect. The territorial fernandes-white matter differentiation is maintained throughout. Age-related cerebral volume loss. Periventricular and subcortical white matter hypoattenuation, consistent with chronic microangiopathy. The visualized orbits appear grossly unremarkable. The calvarium is intact. The visualized paranasal sinuses and mastoid air cells are grossly clear. IMPRESSION: No acute intracranial hemorrhage, midline shift, or mass effect.
[2023-09-30 22:51] LABS: Potassium 4.4 mmol/L (3.5-5.1)
[2023-09-30 22:52] LABS: AST 29 U/L (14-36); Alkaline Phosphatase 99 U/L (38-126)
--- NOTE | 2023-09-30 23:21 | ED ---
General Adult HPI - General Chief complaint: Neuro Symptoms/Deficit Stated complaint: Hallucinations Time Seen by Provider: 09/30/23 22:08 Source: patient, family Mode of arrival: ambulatory Limitations: no limitations - History of Present Illness Initial comments: This patient is 78-year-old woman who presents to have evaluation for visual hallucinations. The patient reports having episodes where she saw snakes on the surface of the table that she was at. She reports that she saw someone with eyes on the back of their head. The patient reports that she knows that these things are not truly there, but she still is having hallucinations. They do not seem to be specific to any particular time of day. She has not noted worsening or relieving factors. -: days(s) Severity scale (1-10): 0 Consistency: intermittent Improves with: none Worsens with: none Associated Symptoms: denies other symptoms Treatments Prior to Arrival: none - Related Data Home Medications Medication Instructions Recorded Confirmed metFORMIN HCL [Glucophage] 1,000 mg PO BID-W/MEALS 02/26/19 09/30/23 Budesonide/Formoterol Fumarate 2 puff INHALATION RT-BID 05/19/21 09/30/23 [Symbicort 160-4.5 Mcg Inhaler] Timolol 0.5% Ophth Soln [Timoptic 1 drop LEFT EYE BID 05/19/21 09/30/23 0.5% Ophth Soln] Albuterol Sulfate [Albuterol 2 puff INHALATION RT-Q4H PRN 09/30/23 09/30/23 Sulfate Hfa] Ascorbic Acid [Vitamin C] 1,000 mg PO DAILY 09/30/23 09/30/23 Calcium Carbonate [Calcium] 600 mg PO DAILY 09/30/23 09/30/23 Cholecalciferol [Vitamin D3 (25 50 mcg PO DAILY 09/30/23 09/30/23 Mcg = 1000 Iu)] Cyclobenzaprine [Flexeril] 5 mg PO TID PRN 09/30/23 09/30/23 Dulaglutide [Trulicity] 0.75 mg SQ TH 09/30/23 09/30/23 Glucagon Emergency Kit 1 mg IM ONCE PRN 09/30/23 09/30/23 Insulin Glargine,Hum.rec.anlog 12 units SQ DAILY 09/30/23 09/30/23 [Lantus Solostar Pen] Ipratropium-Albuterol Nebulize 3 ml INHALATION RT-QID PRN 09/30/23 09/30/23 [Duoneb 0.5 mg-3 mg/3 ml Soln] Losartan [Cozaar] 25 mg PO DAILY 09/30/23 09/30/23 Magnesium 250 mg PO HS 09/30/23 09/30/23 S-Adenosylmethionine Sul Tosyl 200 mg PO DAILY 09/30/23 09/30/23 [Eliseo-E] Allergies Allergy/AdvReac Type Severity Reaction Status Date / Time diphenhydramine AdvReac Hallucinati Verified 09/30/23 22:58 [From Benadryl] ons antihistamines AdvReac Hallucinati Uncoded 09/30/23 21:59 ons Review of Systems ROS Statement: Those systems with pertinent positive or pertinent negative responses have been documented in the HPI. ROS Other: All systems not noted in ROS Statement are negative. Constitutional: Denies: fever, chills, weakness Eyes: Denies: eye pain, vision change ENT: Denies: throat pain, congestion Respiratory: Denies: cough, dyspnea Cardiovascular: Denies: chest pain, palpitations, edema, syncope Gastrointestinal: Denies: abdominal pain, nausea, vomiting, diarrhea Genitourinary: Denies: dysuria, hematuria Musculoskeletal: Denies: back pain Skin: Denies: rash Neurological: Denies: headache, weakness, numbness, paresthesias Psychiatric: Reports: visual hallucinations. Denies: anxiety, auditory hallucinations, homicidal thoughts, suicidal thoughts Past Medical History Past Medical History: Asthma, Cancer, CVA/TIA, Diabetes Mellitus, Eye Disorder, Osteoarthritis (OA) Additional Past Medical History / Comment(s): Hx cervical cancer 30 yrs ago, laser surgery. Diabetic retinopathy. Hx CVA - undiagnosed 2 yrs ago. Poor balance. History of Any Multi-Drug Resistant Organisms: None Reported Past Surgical History: Cholecystectomy, Joint Replacement Additional Past Surgical History / Comment(s): Bilateral knee replacements. Past Anesthesia/Blood Transfusion Reactions: No Reported Reaction, Motion Sickness Past Psychological History: Anxiety Smoking Status: Never smoker Past Alcohol Use History: Occasional Past Drug Use History: None Reported - Past Family History Sister(s) Family Medical History: Cancer Additional Family Medical History / Comment(s): Breast cancer. General Exam Limitations: no limitations General appearance: alert, in no apparent distress Head exam: Present: atraumatic, normocephalic Eye exam: Present: normal appearance, PERRL, EOMI. Absent: scleral icterus, conjunctival injection, nystagmus ENT exam: Present: normal oropharynx Neck exam: Present: normal inspection Respiratory exam: Present: normal lung sounds bilaterally. Absent: respiratory distress, wheezes, rales, rhonchi, stridor Cardiovascular Exam: Present: regular rate, normal rhythm, normal heart sounds. Absent: systolic murmur, diastolic murmur, rubs, gallop GI/Abdominal exam: Present: soft. Absent: distended, tenderness, guarding, rebound, rigid, mass Extremities exam: Present: normal inspection, normal capillary refill. Absent: pedal edema, calf tenderness Back exam: Present: normal inspection Neurological exam: Present: alert, oriented X3, CN II-XII intact. Absent: motor sensory deficit Skin exam: Present: warm, dry, intact, normal color. Absent: rash Course Vital Signs 09/30/23 21:52 Temperature 97.7 F Pulse Rate 93 Respiratory 18 Rate Blood Pressure 125/73 O2 Sat by Pulse 98 Oximetry Medical Decision Making - Medical Decision Making the patient had CT of the brain that I interpreted as negative for acute bony injury or intracranial hemorrhage the patient had chest x-ray which was negative for acute infiltrate, pne umothorax, congestive heart failure. Was pt. sent in by a medical professional or institution ([facility], [employer]IST[employer], urgent care, hospital, or custodial...) When possible be specific @ -[No] Did you speak to anyone other than the patient for history (EMS, parent, family, police, friend...)? What history was obtained from this source @ -[Family did contribute to history Did you review nursing and triage notes (agree or disagree)? Why? @ -[I reviewed and agree with nursing and triage notes] Were old charts reviewed (outside hosp., previous admission, EMS record, old EKG, old radiological studies, urgent care reports/EKG's, custodial records)? Report findings @ -[No old charts were reviewed] Differential Diagnosis (chest pain, altered mental status, abdominal pain women, abdominal pain men, vaginal bleeding, weakness, fever, dyspnea, syncope, headache, dizziness, GI bleed, back pain, seizure, CVA, palpatations, mental health, musculoskeletal)? @ -[Differential Mental Health Depression, anxiety, bipolar, psychosis, schizophrenia, borderline personality, situational depression, adjustment disorder, behavioral disorder, brain tumor, malingering, substance abuse, encephalopathy, medication reaction, dementia, hypothyroidism, degenerative neurologic disorder, lupus.... This is not meant to be all-inclusive list Differential Altered Mental Status: Hypoglycemia, DKA, hypercapnia, ETOH, overdose, CO poisoning, trauma, myxedema coma, HTN encephalopathy, infection, encephalitis, psychosis, intercranial hemorrhage, hepatic encephalopathy, meningitis, CVA, this is not meant to be an all-inclusive list EKG interpreted by me (3pts min.). @ -[I interpreted As above] X-rays interpreted by me (1pt min.). @ -[I interpreted as above CT interpreted by me (1pt min.). @ -[I interpreted as above U/S interpreted by me (1pt. min.). @ -[None done] What testing was considered but not performed or refused? (CT, X-rays, U/S, labs)? Why? @ -[None] What meds were considered but not given or refused? Why? @ -[None] Did you discuss the management of the patient with other professionals (professionals i.e. , PA, [employer] SAL[employer] ASSISTANT, lab, RT, psych nurse, social work nurse, mobility architect manager, teacher, aeronautical engineering officer, director of casework services)? Give summary @ -[No] Was smoking cessation discussed for >3mins.? @ -[No] Was critical care preformed (if so, how long)? @ -[No] Were there social determinants of health that impacted care today? How? (Homelessness, low income, unemployed, alcoholism, drug addiction, transportation, low edu. Level, literacy, decrease access to med. care, fpc, rehab)? @ -[No] Was there de-escalation of care discussed even if they declined (Discuss DNR or withdrawal of care, Hospice)? DNR status @ -[No] What co-morbidities impacted this encounter? (DM, HTN, Smoking, COPD, CAD, Cancer, CVA, ARF, Chemo, Hep., AIDS, mental health diagnosis, sleep apnea, morbid obesity)? @ -[None] Was patient admitted / discharged? Hospital course, mention meds given and route, prescriptions, significant lab abnormalities, going to OR and other pertinent info. @ -[This patient is a 78-year-old woman presenting to have evaluation after having some hallucinations. The patient does have good judgment and realizes that these things are not real. The physical exam and workup are unremarkable, and at this point we will have the patient follow with neurology to have further testing related to the symptoms. We discussed appropriate further care and follow-up as well as return parameters Undiagnosed new problem with uncertain prognosis? @ -[No] Drug Therapy requiring intensive monitoring for toxicity (Heparin, Nitro, Insulin, Cardizem)? @ -[No] Were any procedures done? @ -[No] Diagnosis/symptom? @ -[Acute visual hallucinations Acute, or Chronic, or Acute on Chronic? @ -[Acute Uncomplicated (without systemic symptoms) or Complicated (systemic symptoms)? @ -[Uncomplicated Side effects of treatment? @ -[No] Exacerbation, Progression, or Severe Exacerbation? @ -[No] Poses a threat to life or bodily function? How? (Chest pain, [place], VA, pneumonia, PE, COPD, DKA, ARF, appy, cholecystitis, CVA, Diverticulitis, Homicidal, Suicidal, threat to staff... and all critical care pts) @ -[No] - Lab Data Result diagrams: 09/30/23 22:27 09/30/23 22:27 Lab Results 09/30/23 09/30/23 09/30/23 Range/Units 22:00 22:27 22:27 WBC 6.5 (3.8-10.6) k/uL RBC 4.11 (3.80-5.40) m/uL Hgb 13.1 (11.4-16.0) gm/dL Hct 38.3 (34.0-46.0) % MCV 93.1 (80.0-100.0) fL MCH 31.8 (25.0-35.0) pg MCHC 34.1 (31.0-37.0) g/dL RDW 13.2 (11.5-15.5) % Plt Count 321 (150-450) k/uL MPV 7.0 Neutrophils % 45 % Lymphocytes % 37 % Monocytes % 7 % Eosinophils % 8 % Basophils % 1 % Neutrophils # 2.9 (1.3-7.7) k/uL Lymphocytes # 2.4 (1.0-4.8) k/uL Monocytes # 0.5 (0-1.0) k/uL Eosinophils # 0.5 (0-0.7) k/uL Basophils # 0.1 (0-0.2) k/uL PT (10.0-12.5) sec INR (<1.2) APTT (22.0-30.0) sec Sodium 137 (137-145) mmol/L Potassium 4.4 (3.5-5.1) mmol/L Chloride 104 (98-107) mmol/L Carbon Dioxide 24 (22-30) mmol/L Anion Gap 9 mmol/L BUN 16 (7-17) mg/dL Creatinine 0.73 (0.52-1.04) mg/dL Est GFR (CKD-EPI)AfAm >90 (>60 ml/min/1.73 sqM) Est GFR (CKD-EPI)NonAf 79 (>60 ml/min/1.73 sqM) Glucose 131 H (74-99) mg/dL POC Glucose (mg/dL) 132 H (70-110) mg/dL POC Glu Senior Visual Designer [employer] Roberts Calcium 9.1 (8.4-10.2) mg/dL Total Bilirubin 0.4 (0.2-1.3) mg/dL AST 29 (14-36) U/L ALT 17 (4-34) U/L Alkaline Phosphatase 99 (38-126) U/L Troponin I (0.000-0.034) ng/mL Total Protein 6.3 (6.3-8.2) g/dL Albumin 3.7 (3.5-5.0) g/dL 09/30/23 09/30/23 Range/Units 22:27 23:00 WBC (3.8-10.6) k/uL RBC (3.80-5.40) m/uL Hgb (11.4-16.0) gm/dL Hct (34.0-46.0) % MCV (80.0-100.0) fL MCH (25.0-35.0) pg MCHC (31.0-37.0) g/dL RDW (11.5-15.5) % Plt Count (150-450) k/uL MPV Neutrophils % % Lymphocytes % % Monocytes % % Eosinophils % % Basophils % % Neutrophils # (1.3-7.7) k/uL Lymphocytes # (1.0-4.8) k/uL Monocytes # (0-1.0) k/uL Eosinophils # (0-0.7) k/uL Basophils # (0-0.2) k/uL PT 9.8 L (10.0-12.5) sec INR 0.9 (<1.2) APTT 24.8 (22.0-30.0) sec Sodium (137-145) mmol/L Potassium (3.5-5.1) mmol/L Chloride (98-107) mmol/L Carbon Dioxide (22-30) mmol/L Anion Gap mmol/L BUN (7-17) mg/dL Creatinine (0.52-1.04) mg/dL Est GFR (CKD-EPI)AfAm (>60 ml/min/1.73 sqM) Est GFR (CKD-EPI)NonAf (>60 ml/min/1.73 sqM) Glucose (74-99) mg/dL POC Glucose (mg/dL) (70-110) mg/dL POC Glu Senior Visual Designer ID Calcium (8.4-10.2) mg/dL Total Bilirubin (0.2-1.3) mg/dL AST (14-36) U/L ALT (4-34) U/L Alkaline Phosphatase (38-126) U/L Troponin I <0.012 (0.000-0.034) ng/mL Total Protein (6.3-8.2) g/dL Albumin (3.5-5.0) g/dL Disposition Clinical Impression: Hallucination, visual Disposition: HOME SELF-CARE Condition: Fair Instructions (If sedation given, give patient instructions): Hallucinations (ED) Is patient prescribed a controlled substance at d/c from ED?: No Referrals: Dimas Catherine DO [Primary Care Provider] - 1-2 days Soraya Castro MD [STAFF PHYSICIAN] - 1-2 days
[2023-09-30 23:29] LABS: INR 0.9 (<1.2); Partial Thromboplastin Time 24.8 sec (22.0-30.0); Prothrombin Time 9.8 sec (10.0-12.5)
== END 2023-10-01 00:56 | disposition home or self-care (01) ==
LOC: EC 21:48
DX: R44.1 Visual hallucinations (principal); E11.319 Type 2 diabetes mellitus with unspecified diabetic retinopathy without macular edema; J45.909 Unspecified asthma, uncomplicated; M19.90 Unspecified osteoarthritis, unspecified site; F41.9 Anxiety disorder, unspecified; Z79.4 Long term (current) use of insulin; Z79.51 Long term (current) use of inhaled steroids; Z79.84 Long term (current) use of oral hypoglycemic drugs; Z79.899 Other long term (current) drug therapy; Z88.8 Allergy status to other drugs, medicaments and biological substances; Z90.49 Acquired absence of other specified parts of digestive tract
CPT/HCPCS: 36415; 70450; 71046; 80053; 84484; 85025; 85610; 85730; 93005; 99285

== ENCOUNTER → 2023-10-06 | Outpatient (CLI) | payer OTHER, MEDICARE ==
[2023-10-06 11:26] LABS: Ionized Calcium 4.9 mg/dL (4.5-5.3)
[2023-10-06 11:37] LABS: ALT 23 U/L (4-34); AST 43 U/L (14-36); African American GFR (CKD) >90 (>60 ml/min/1.73 sqM); Albumin 4.1 g/dL (3.5-5.0); Albumin/Globulin Ratio 1.5; Alkaline Phosphatase 90 U/L (38-126); Anion Gap 7 mmol/L; Blood Urea Nitrogen 12 mg/dL (7-17); Calcium 9.2 mg/dL (8.4-10.2); Carbon Dioxide 25 mmol/L (22-30); Chloride 106 mmol/L (98-107); Globulin 2.8 g/dL; Glucose 110 mg/dL (74-99); Non-African American GFR(CKD) 85 (>60 ml/min/1.73 sqM); Potassium 4.7 mmol/L (3.5-5.1); Sodium 138 mmol/L (137-145); Total Bilirubin 0.8 mg/dL (0.2-1.3); Total Protein 6.9 g/dL (6.3-8.2)
[2023-10-06 14:55] LABS: Basophils # (A) 0.07 X 10*3/uL (0.00-0.10); Basophils % (A) 1.2 %; Eosinophils # (A) 0.32 X 10*3/uL (0.04-0.35); Eosinophils % (A) 5.5 %; HCT 41.2 % (37.2-46.3); HGB 13.4 g/dL (12.0-15.0); Lymphocytes # (A) 1.93 X 10*3/uL (0.90-5.00); Lymphocytes % (A) 33.2 %; MCH 30.6 pg (27.0-32.0); MCHC 32.5 g/dL (32.0-37.0); MCV 94.1 FL (80.0-97.0); Mean Platelet Volume 9.6 FL (9.5-12.2); Monocytes # (A) 0.49 X 10*3/uL (0.20-1.00); Monocytes % (A) 8.4 %; NRBC Per 100 WBC 0 X 10*3/uL (0.00-0.01); Neutrophils # (A) 2.99 X 10*3/uL (1.80-7.70); Neutrophils % (A) 51.4 %; Platelet Count 318 X 10*3/uL (140-440); RBC 4.38 X 10*6/uL (4.10-5.20); RDW 13.7 % (11.5-14.5); WBC 5.82 X 10*3/uL (4.50-10.00)
[2023-10-06 16:19] LABS: Erythrocyte Sedimentation Rate 21 mm/Hr (0-30)
== END | disposition home or self-care (01) ==
LOC: LABWHC1 10:16
PROVIDERS: ATTEND Internal Medicine
DX: M85.80 Other specified disorders of bone density and structure, unspecified site (principal); R44.3 Hallucinations, unspecified
CPT/HCPCS: 36415; 80053; 82140; 82306; 82330; 82607; 82746; 84443; 85025; 85652; 86780

== ENCOUNTER → 2023-10-16 | Outpatient (CLI) | payer MEDICARE, OTHER ==
--- NOTE | 2023-10-16 15:28 | MR ---
EXAMINATION TYPE: MR brain wo/w con DATE OF EXAM: 10/16/2023 3:05 PM CLINICAL INDICATION:Female, 78 years old with history of R44.3 HALLUCINATIONS, UNSPECIFIED;, Hallucin ations. Patient "feels like their falling forward and backward when closing eyes". COMPARISON: 09/30/2023 TECHNIQUE: Multi planar, multi sequence imaging was performed through the brain including: T1, T2, In version recovery, susceptibility weighted imaging and gradient echo imaging and Diffusion weighted im aging. The patient was then given intravenous contrast and multi planar, T1 fat-saturation images wer e obtained. IV Contrast: 6.5 cc Gadavist, FINDINGS: The fernandes-white junctions, ventricular system, basal cisterns appear unremarkable. Diffusion-weighted imaging shows no evidence of restricted diffusion to suggest acute/subacute infarct. Intracranial ar terial flow voids are maintained. Midline structures show no abnormality. Scattered foci of high T2 s ignal intensity are seen within the periventricular white matter. The susceptibility weighted images do not reveal any evidence for micro-hemorrhage. After administration of gadolinium, no abnormal enha ncement is seen. The bone marrow signal is within normal limits. Paranasal sinuses and mastoid air cells: Mild scattered paranasal sinus disease. Visualized orbits: Bilateral aphakia IMPRESSION: 1. No evidence of intracranial mass, acute/subacute infarct, or abnormal enhancement. 2. Nonspecific white matter changes, likely related to small vessel ischemic disease.
== END | disposition home or self-care (01) ==
LOC: RADMRIMAIN 13:37
PROVIDERS: ATTEND Internal Medicine
DX: G93.89 Other specified disorders of brain (principal); R44.3 Hallucinations, unspecified
CPT/HCPCS: 70553; A9585

== ENCOUNTER 2023-10-26 18:59 | Observation (INO) | payer MEDICARE, OTHER ==
--- NOTE | 2023-10-26 19:30 | ED ---
Altered Mental Status HPI - General Chief Complaint: Altered Mental Status Stated Complaint: AMS Time Seen by Provider: 10/26/23 19:05 Source: patient, EMS, RN notes reviewed, old records reviewed Mode of arrival: EMS Limitations: no limitations - History of Present Illness Initial Comments: This is a 78-year-old female presents to the emergency department because she states she was in her bathtub after taking a warm bath and was unable to get out so her daughter came and helped her out and then she sat down on her walker and started to cry for no reason and she could not stop for a while she does not know why she started to cry. Family was concerned so they sent her to the emergency department. Patient is alert and oriented x 4. Patient has no complaints of headache patient denies numbness weakness. Patient denies chest pain difficulty breathing or shortness of breath. Patient denies abdominal pain but denies nausea vomiting or diarrhea. Patient denies any recent fever chills or cough. Patient is asymptomatic. Patient's family arrived the daughter states the patient becoming more more confused and patient has been hallucinating for the last 3 weeks seeing different color dots and seeing cartoon characters occasionally. According to the daughter patient was in the tub when she began screaming and crying and that is why the daughter went into the bathroom initially. Daughter also states that the patient is getting confused often during the day she was standing in the garage looking at the door this morning waiting for the bus to come but normally she does not go in the garage she stands at the front door and the garage door. Patient denies having done this but daughter insist that these kind of events are occurring more and more and she is afraid it is getting dangerous for her mother - Related Data Home Medications Medication Instructions Recorded Confirmed metFORMIN HCL [Glucophage] 1,000 mg PO BID-W/MEALS 02/26/19 09/30/23 Budesonide/Formoterol Fumarate 2 puff INHALATION RT-BID 05/19/21 09/30/23 [Symbicort 160-4.5 Mcg Inhaler] Timolol 0.5% Ophth Soln [Timoptic 1 drop LEFT EYE BID 05/19/21 09/30/23 0.5% Ophth Soln] Albuterol Sulfate [Albuterol 2 puff INHALATION RT-Q4H PRN 09/30/23 09/30/23 Sulfate Hfa] Ascorbic Acid [Vitamin C] 1,000 mg PO DAILY 09/30/23 09/30/23 Calcium Carbonate [Calcium] 600 mg PO DAILY 09/30/23 09/30/23 Cholecalciferol [Vitamin D3 (25 50 mcg PO DAILY 09/30/23 09/30/23 Mcg = 1000 Iu)] Cyclobenzaprine [Flexeril] 5 mg PO TID PRN 09/30/23 09/30/23 Dulaglutide [Trulicity] 0.75 mg SQ TH 09/30/23 09/30/23 Glucagon Emergency Kit 1 mg IM ONCE PRN 09/30/23 09/30/23 Insulin Glargine,Hum.rec.anlog 12 units SQ DAILY 09/30/23 09/30/23 [Lantus Solostar Pen] Ipratropium-Albuterol Nebulize 3 ml INHALATION RT-QID PRN 09/30/23 09/30/23 [Duoneb 0.5 mg-3 mg/3 ml Soln] Losartan [Cozaar] 25 mg PO DAILY 09/30/23 09/30/23 Magnesium 250 mg PO HS 09/30/23 09/30/23 S-Adenosylmethionine Sul Tosyl 200 mg PO DAILY 09/30/23 09/30/23 [Eliseo-E] Allergies Allergy/AdvReac Type Severity Reaction Status Date / Time diphenhydramine AdvReac Hallucinati Verified 10/26/23 19:06 [From Benadryl] ons antihistamines AdvReac Hallucinati Uncoded 10/26/23 19:06 ons Review of Systems ROS Statement: Those systems with pertinent positive or pertinent negative responses have been documented in the HPI. ROS Other: All systems not noted in ROS Statement are negative. Past Medical History Past Medical History: Asthma, Cancer, CVA/TIA, Diabetes Mellitus, Eye Disorder, Osteoarthritis (OA) Additional Past Medical History / Comment(s): Hx cervical cancer 30 yrs ago, laser surgery. Diabetic retinopathy. Hx CVA - undiagnosed 2 yrs ago. Poor b alance. History of Any Multi-Drug Resistant Organisms: None Reported Past Surgical History: Cholecystectomy, Joint Replacement Additional Past Surgical History / Comment(s): Bilateral knee replacements. Past Anesthesia/Blood Transfusion Reactions: No Reported Reaction, Motion Sickness Past Psychological History: Anxiety Smoking Status: Former smoker Past Alcohol Use History: Occasional Past Drug Use History: None Reported - Past Family History Sister(s) Family Medical History: Cancer Additional Family Medical History / Comment(s): Breast cancer. General Exam - General Exam Comments Initial Comments: GENERAL: Patient is well-developed and well-nourished. Patient is nontoxic and well- hydrated and is in no acute distress. ENT: Neck is soft and supple. No significant lymphadenopathy is noted. Oropharynx is clear. Moist mucous membranes. Neck has full range of motion without eliciting any pain. EYES: The sclera were anicteric and conjunctiva were pink and moist. Extraocular movements were intact and pupils were equal round and reactive to light. Eyelids were unremarkable. PULMONARY: Unlabored respirations. Good breath sounds bilaterally. No audible rales rhonchi or wheezing was noted. CARDIOVASCULAR: There is a regular rate and rhythm without any murmurs gallops or rubs. ABDOMEN: Soft and nontender with normal bowel sounds. SKIN: Skin is clear with no lesions or rashes and otherwise unremarkable. NEUROLOGIC: Patient is alert and oriented x3. Cranial nerves II through XII are grossly intact. Motor and sensory are also intact. Normal speech, volume and content. Symmetrical smile. MUSCULOSKELETAL: Normal extremities with adequate strength and full range of motion. No lower extremity swelling or edema. No calf tenderness. LYMPHATICS: No significant lymphadenopathy is noted PSYCHIATRIC: Normal psychiatric evaluation. Limitations: no limitations Course Vital Signs 10/26/23 19:00 Temperature 98.4 F Pulse Rate 81 Respiratory 18 Rate Blood Pressure 136/76 O2 Sat by Pulse 98 Oximetry Medical Decision Making - Medical Decision Making Was pt. sent in by a medical professional or institution (, PA, PROCESS SERVER, urgent care, hospital, or correction...) When possible be specific @ -No Did you speak to anyone other than the patient for history (EMS, parent, family, police, friend...)? What history was obtained from this source @ -Daughter gave most of the history. Did you review nursing and triage notes (agree or disagree)? Why? @ -I reviewed and agree with nursing and triage notes Were old charts reviewed (outside hosp., previous admission, EMS record, old EKG, old radiological studies, urgent care reports/EKG's, correction records)? Report findings @ -I have reviewed prior radiological studies prior labwork and prior charts and this patient Differential Diagnosis (chest pain, altered mental status, abdominal pain women, abdominal pain men, vaginal bleeding, weakness, fever, dyspnea, syncope, headache, dizziness, GI bleed, back pain, seizure, CVA, palpatations, mental health, musculoskeletal)? @ -Differential Altered Mental Status: Hypoglycemia, DKA, hypercapnia, ETOH, overdose, CO poisoning, trauma, myxedema coma, HTN encephalopathy, infection, encephalitis, psychosis, intercranial hemorrhage, hepatic encephalopathy, meningitis, CVA, this is not meant to be an all-inclusive list EKG interpreted by me (3pts min.). @ -As above X-rays interpreted by me (1pt min.). @ -Chest x-ray shows no acute abnormality CT interpreted by me (1pt min.). @ -None done U/S interpreted by me (1pt. min.). @ -None done What testing was considered but not performed or refused? (CT, X-rays, U/S, labs)? Why? @ -None What meds were considered but not given or refused? Why? @ -None Did you discuss the management of the patient with other professionals (professionals i.e. , PA, PROCESS SERVER, lab, RT, psych nurse, social media analyst, addressing machine operator, teacher, radiation officer, field nurse case manager)? Give summary @ -I spoke with [facility], [place] [facility] who agreed to admit the patient Was smoking cessation discussed for >3mins.? @ -No Was critical care preformed (if so, how long)? @ -No Were there social determinants of health that impacted care today? How? (Homelessness, low income, unemployed, alcoholism, drug addiction, transportation, low edu. Level, literacy, decrease access to med. care, nursing home, rehab)? @ -No Was there de-escalation of care discussed even if they declined (Discuss DNR or withdrawal of care, Hospice)? DNR status @ -No What co-morbidities impacted this encounter? (DM, HTN, Smoking, COPD, CAD, Cancer, CVA, ARF, Chemo, Hep., AIDS, mental health diagnosis, sleep apnea, morbid obesity)? @ -None Was patient admitted / discharged? Hospital course, mention meds given and route, prescriptions, significant lab abnormalities, going to OR and other pertinent info. @ -I admitted the patient I consulted neurology patient also had a urinary tract infection I gave the patient 2 g of Rocephin in the emergency department and continue the antibiotics on the floor. Undiagnosed new problem with uncertain prognosis? @ -No Drug Therapy requiring intensive monitoring for toxicity (Heparin, Nitro, Insulin, Cardizem)? @ -No Were any procedures done? @ -No Diagnosis/symptom? @ -Altered mental status Acute, or Chronic, or Acute on Chronic? @ -Acute on chronic Uncomplicated (without systemic symptoms) or Complicated (systemic symptoms)? @ -Complicated Side effects of treatment? @ -No Exacerbation, Progression, or Severe Exacerbation? @ -No Poses a threat to life or bodily function? How? (Chest pain, [place], [place], pneumonia, PE, COPD, DKA, ARF, appy, cholecystitis, CVA, Diverticulitis, Homicidal, Suicidal, threat to staff... and all critical care pts) @ -No Diagnosis/symptom? @ -Urinary tract infection Acute, or Chronic, or Acute on Chronic? @ -Acute Uncomplicated (without systemic symptoms) or Complicated (systemic symptoms)? @ -Complicated Side effects of treatment? @ -None Exacerbation, Progression, or Severe Exacerbation] @ -No Poses a threat to life or bodily function? @ -No - Lab Data Result diagrams: 10/26/23 19:47 10/26/23 19:47 Lab Results 10/26/23 10/26/23 10/26/23 Range/Units 19:47 19:47 19:47 WBC 6.3 (3.8-10.6) k/uL RBC 3.75 L (3.80-5.40) m/uL Hgb 11.9 (11.4-16.0) gm/dL Hct 35.4 (34.0-46.0) % MCV 94.5 (80.0-100.0) fL MCH 31.7 (25.0-35.0) pg MCHC 33.6 (31.0-37.0) g/dL RDW 13.4 (11.5-15.5) % Plt Count 331 (150-450) k/uL MPV 7.1 Neutrophils % 54 % Lymphocytes % 32 % Monocytes % 6 % Eosinophils % 5 % Basophils % 1 % Neutrophils # 3.4 (1.3-7.7) k/uL Lymphocytes # 2.0 (1.0-4.8) k/uL Monocytes # 0.4 (0-1.0) k/uL Eosinophils # 0.3 (0-0.7) k/uL Basophils # 0.1 (0-0.2) k/uL PT 9.7 L (10.0-12.5) sec INR 0.9 (<1.2) APTT 24.5 (22.0-30.0) sec Sodium (137-145) mmol/L Potassium (3.5-5.1) mmol/L Chloride (98-107) mmol/L Carbon Dioxide (22-30) mmol/L Anion Gap mmol/L BUN (7-17) mg/dL Creatinine (0.52-1.04) mg/dL Est GFR (CKD-EPI)AfAm (>60 ml/min/1.73 sqM) Est GFR (CKD-EPI)NonAf (>60 ml/min/1.73 sqM) Glucose (74-99) mg/dL Calcium (8.4-10.2) mg/dL Total Bilirubin (0.2-1.3) mg/dL AST (14-36) U/L ALT (4-34) U/L Alkaline Phosphatase (38-126) U/L Troponin I (0.000-0.034) ng/mL Total Protein (6.3-8.2) g/dL Albumin (3.5-5.0) g/dL Urine Color Urine Appearance (Clear) Urine pH (5.0-8.0) Ur Specific [place] (1.001-1.035) Urine Protein (Negative) Urine Glucose (UA) (Negative) Urine Ketones (Negative) Urine Blood (Negative) Urine Nitrite (Negative) Urine Bilirubin (Negative) Urine Urobilinogen (<2.0) mg/dL Ur Leukocyte Esterase (Negative) Urine RBC (0-5) /hpf Urine WBC (0-5) /hpf Urine WBC Clumps (None) /hpf Ur Squamous Epith Cells (0-4) /hpf Urine Bacteria (None) /hpf Urine Mucus (None) /hpf Influenza Type A (PCR) Not Detected (Not Detectd) Influenza Type B (PCR) Not Detected (Not Detectd) RSV (PCR) Not Detected (Not Detectd) SARS-CoV-2 (PCR) Not Detected (Not Detectd) 0210/26/23 10/26/23 Range/Units 19:47 19:47 19:47 WBC (3.8-10.6) k/uL RBC (3.80-5.40) m/uL Hgb (11.4-16.0) gm/dL Hct (34.0-46.0) % MCV (80.0-100.0) fL MCH (25.0-35.0) pg MCHC (31.0-37.0) g/dL RDW (11.5-15.5) % Plt Count (150-450) k/uL MPV Neutrophils % % Lymphocytes % % Monocytes % % Eosinophils % % Basophils % % Neutrophils # (1.3-7.7) k/uL Lymphocytes # (1.0-4.8) k/uL Monocytes # (0-1.0) k/uL Eosinophils # (0-0.7) k/uL Basophils # (0-0.2) k/uL PT (10.0-12.5) sec INR (<1.2) APTT (22.0-30.0) sec Sodium 137 (137-145) mmol/L Potassium 4.1 (3.5-5.1) mmol/L Chloride 108 H (98-107) mmol/L Carbon Dioxide 26 (22-30) mmol/L Anion Gap 3 mmol/L BUN 17 (7-17) mg/dL Creatinine 0.68 (0.52-1.04) mg/dL Est GFR (CKD-EPI)AfAm >90 (>60 ml/min/1.73 sqM) Est GFR (CKD-EPI)NonAf 84 (>60 ml/min/1.73 sqM) Glucose 192 H (74-99) mg/dL Calcium 8.9 (8.4-10.2) mg/dL Total Bilirubin 0.3 (0.2-1.3) mg/dL AST 30 (14-36) U/L ALT 26 (4-34) U/L Alkaline Phosphatase 127 H (38-126) U/L Troponin I <0.012 (0.000-0.034) ng/mL Total Protein 5.8 L (6.3-8.2) g/dL Albumin 3.6 (3.5-5.0) g/dL Urine Color Colorless Urine Appearance Cloudy H (Clear) Urine pH 7.0 (5.0-8.0) Ur Specific [place] 1.014 (1.001-1.035) Urine Protein Negative (Negative) Urine Glucose (UA) Trace H (Negative) Urine Ketones Negative (Negative) Urine Blood Negative (Negative) Urine Nitrite Negative (Negative) Urine Bilirubin Negative (Negative) Urine Urobilinogen <2.0 (<2.0) mg/dL Ur Leukocyte Esterase Large H (Negative) Urine RBC 3 (0-5) /hpf Urine WBC 24 H (0-5) /hpf Urine WBC Clumps Few H (None) /hpf Ur Squamous Epith Cells 9 H (0-4) /hpf Urine Bacteria Occasional H (None) /hpf Urine Mucus Rare H (None) /hpf Influenza Type A (PCR) (Not Detectd) Influenza Type B (PCR) (Not Detectd) RSV (PCR) (Not Detectd) SARS-CoV-2 (PCR) (Not Detectd) Disposition Clinical Impression: Hallucinations, Altered mental status, Urinary tract infection Disposition: ADMITTED IP TO THIS [facility] Referrals: Dimas Catherine DO [Primary Care Provider] - 1-2 days Time of Disposition: 20:24
[2023-10-26] MEDS: SODIUM CHLORIDE 0.9% 500 ML 500 ML IV ONE (19:46)
[2023-10-26 20:04] LABS: Basophils # (A) 0.1 k/uL (0-0.2); Basophils % (A) 1 %; Eosinophils # (A) 0.3 k/uL (0-0.7); Eosinophils % (A) 5 %; HCT 35.4 % (34.0-46.0); HGB 11.9 gm/dL (11.4-16.0); Lymphocytes % (A) 32 %; MCH 31.7 pg (25.0-35.0); MCHC 33.6 g/dL (31.0-37.0); MCV 94.5 fL (80.0-100.0); Mean Platelet Volume 7.1; Monocytes # (A) 0.4 k/uL (0-1.0); Monocytes % (A) 6 %; Neutrophils # (A) 3.4 k/uL (1.3-7.7); Neutrophils % (A) 54 %; Platelet Count 331 k/uL (150-450); RBC 3.75 m/uL (3.80-5.40); RDW 13.4 % (11.5-15.5); WBC 6.3 k/uL (3.8-10.6)
[2023-10-26 20:12] LABS: ALT 26 U/L (4-34); AST 30 U/L (14-36); African American GFR (CKD) >90 (>60 ml/min/1.73 sqM); Albumin 3.6 g/dL (3.5-5.0); Alkaline Phosphatase 127 U/L (38-126); Anion Gap 3 mmol/L; Blood Urea Nitrogen 17 mg/dL (7-17); Calcium 8.9 mg/dL (8.4-10.2); Carbon Dioxide 26 mmol/L (22-30); Chloride 108 mmol/L (98-107); Glucose 192 mg/dL (74-99); Non-African American GFR(CKD) 84 (>60 ml/min/1.73 sqM); Potassium 4.1 mmol/L (3.5-5.1); Sodium 137 mmol/L (137-145); Total Bilirubin 0.3 mg/dL (0.2-1.3); Total Protein 5.8 g/dL (6.3-8.2)
[2023-10-26 20:13] LABS: INR 0.9 (<1.2); Partial Thromboplastin Time 24.5 sec (22.0-30.0); Prothrombin Time 9.7 sec (10.0-12.5)
[2023-10-26 20:40] LABS: Appearance,Urine Cloudy (Clear); Bacteria,Urine Occasional /hpf; Bilirubin,Urine Negative (Negative); Blood,Urine Negative (Negative); Color,Urine Colorless; Glucose,Urine (UA) Trace (Negative); Ketones,Urine Negative (Negative); Leukocyte Esterase,Urine Large (Negative); Mucus,Urine Rare /hpf; Nitrite,Urine Negative (Negative); Protein,Urine Negative (Negative); RBC,Urine 3 /hpf (0-5); Specific Gravity,Urine 1.014 (1.001-1.035); Squamous Epithelial Cell,Urine 9 /hpf (0-4); Urobilinogen,Urine <2.0 mg/dL (<2.0); WBC,Urine 24 /hpf (0-5)
[2023-10-26 20:47] LABS: Amphetamine Screen,Urine Not Detected (NotDetected); Barbiturate Screen,Urine Not Detected (NotDetected); Benzodiazepines Screen,Urine Detected (NotDetected); Cocaine Screen,Urine Not Detected (NotDetected); Methadone Screen, Urine Not Detected (NotDetected); Opiate Screen,Urine Not Detected (NotDetected); Oxycodone Screen, Urine Not Detected (NotDetected); Phencyclidine Screen,Urine Not Detected (NotDetected); Tricyclic Antidepressant,Urine Not Detected (NotDetected); Urn Cannabinoid Scrn Not Detected (NotDetected)
[2023-10-26] MEDS: SODIUM CHLORIDE 0.9% 1,000 ML IV ONE (20:58)
[2023-10-26] MEDS: cefTRIAXone IN SWFI 1,000 MG/10 ML SYRINGE IVP STA (20:58)
--- NOTE | 2023-10-26 21:07 | XR ---
EXAMINATION TYPE: XR chest 2V DATE OF EXAM: 10/26/2023 8:57 PM CLINICAL INDICATION:Female, 78 years old with history of altered mental status; [facility] COMPARISON: Chest radiographs from 09/30/2023 TECHNIQUE: XR chest 2V Frontal and lateral views of the chest. FINDINGS: Lungs/Pleura: There is no evidence of pleural effusion, focal consolidation, or pneumothorax. Pulmonary vascularity: Unremarkable. Heart/mediastinum: Cardiomediastinal silhouette is prominent in size. Musculoskeletal: No acute osseous pathology. Other findings: None IMPRESSION: No acute cardiopulmonary disease/process.
[2023-10-27] MEDS ORDERED: NALOXONE 0.4 MG/ML 1 ML VIAL IV PRN (00:48)
[2023-10-27] MEDS ORDERED: ALPRAZolam 0.25 MG TAB PO PRN (00:48)
[2023-10-27] MEDS ORDERED: DEXTROSE 50% SYRINGE 50 ML IVP PRN ×2 (00:48)
[2023-10-27] MEDS ORDERED: ONDANSETRON 4 MG/2 ML VIAL IVP PRN (00:48)
[2023-10-27] MEDS ORDERED: MELATONIN 5 MG TABLET PO PRN (00:48)
--- NOTE | 2023-10-27 00:48 | P.HPIM ---
History of Present Illness H&P Date: 10/26/23 Chief Complaint: Behavioral concerns 78-year-old female with history of diabetes mellitus COPD not on home oxygen Patient daughter provides most of the history, she reports that the patient is stubborn and she lives with her sister however she likes to be independent and would not ask for help today she went to the bathroom on her own to take a bath however suddenly they hear her crying and screaming in the bathtub they helped her out and then she started and continued to scream and cry for no reason. For which the daughter got concerned and brought her to the hospital for evaluation Currently at time of my evaluation patient is awake alert very pleasant does not recall most of the events that the daughter is describing. She denies any headache visual changes hearing changes denies any focal neurodeficits. However the patient herself does admit to prior episodes where she will see a yellow dots or she would see a field to feel of dominique that does not exist she does acknowledge that she is having some visual hallucinations at times she even recalls an event when she saw people faces as a cartoon when they are all more looking funny. Again she denies any headache she denies any falls or head injury. This has been worked up in the past with recent CAT scan of the head and MRI of the brain that was done about 10 days ago failed to show any acute intracranial pathology. Patient does have episodes where she would be very forgetful and confused and hallucinating. All this has been concerning for dementia of Lewy body. Patient has been lost to follow-up with neurology and today she is coming in for another episodes of behavioral concerns Patient denies any tobacco smoking illicit drugs or heavy alcohol there has been no changes in her medications Review of systems she denies any fever, chills, cough, sore throat, chest pain , trouble breathing , nausea , vomiting, abd pain , changes in urinary or bowel habits. 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 review of systems Pertinent positives as noted in HPI. All other systems were reviewed and are negative on exam Constitutional: No acute distress, conversant, pleasant Eyes: Anicteric sclerae, moist conjunctiva, Pupils equal round reactive to light ENMT: NC/AT Oropharynx clear, no erythema, or exudates Neck: Supple, no masses, or JVD No carotid bruits No thyromegaly Lungs: Clear to auscultation Clear to percussion Normal respiratory effort, no accessory muscle use Cardiovascular: Heart regular in rate and rhythm, No murmurs, gallops, or rubs No peripheral edema Abdominal: Soft Nontender, no guarding, rebound or rigidity Abdomen moving with respiration Normoactive bowel sounds No hepatomegaly, No splenomegaly No palpable mass No abdominal wall hernia noted Extremities: No digital cyanosis No clubbing Pedal pulses intact and symmetrical Radial pulses intact and symmetrical No calf tenderness Psychiatric: Alert and oriented to person, place and time Appropriate affect fair judgement Neuro Muscles Strength 5/5 in all 4 extremities Sensation to light touch grossly present throughout Cranial nerves II-XII grossly intact Finger-nose exams intact heel dumont exams intact Lymphatics: no palpable cervical or supraclavicular lymph nodes Past Medical History Past Medical History: Asthma, Cancer, CVA/TIA, Diabetes Mellitus, Eye Disorder, Osteoarthritis (OA) Additional Past Medical History / Comment(s): Hx cervical cancer 30 yrs ago, laser surgery. Diabetic retinopathy. Hx CVA - undiagnosed 2 yrs ago. Poor balance. History of Any Multi-Drug Resistant Organisms: None Reported Past Surgical History: Cholecystectomy, Joint Replacement Additional Past Surgical History / Comment(s): Bilateral knee replacements. Past Anesthesia/Blood Transfusion Reactions: No Reported Reaction, Motion Sickness Past Psychological History: Anxiety Smoking Status: Former smoker Past Alcohol Use History: Occasional Past Drug Use History: None Reported - Past Family History Sister(s) Family Medical History: Cancer Additional Family Medical History / Comment(s): Breast cancer. Medications and Allergies Home Medications Medication Instructions Recorded Confirmed Type metFORMIN HCL [Glucophage] 1,000 mg PO BID-W/MEALS 02/26/19 10/26/23 History Budesonide/Formoterol Fumarate 2 puff INHALATION RT-BID 05/19/21 10/26/23 H istory [Symbicort 160-4.5 Mcg Inhaler] Timolol 0.5% Ophth Soln [Timoptic 1 drop LEFT EYE BID 05/19/21 10/26/23 History 0.5% Ophth Soln] Albuterol Sulfate [Albuterol 2 puff INHALATION RT-Q4H PRN 09/30/23 10/26/23 History Sulfate Hfa] Ascorbic Acid [Vitamin C] 1,000 mg PO DAILY 09/30/23 10/26/23 History Calcium Carbonate [Calcium] 600 mg PO DAILY 09/30/23 10/26/23 History Cholecalciferol [Vitamin D3 (25 50 mcg PO DAILY 09/30/23 10/26/23 History Mcg = 1000 Iu)] Cyclobenzaprine [Flexeril] 5 mg PO TID PRN 09/30/23 10/26/23 History Dulaglutide [Trulicity] 0.75 mg SQ TH 09/30/23 10/26/23 History Glucagon Emergency Kit 1 mg IM ONCE PRN 09/30/23 10/26/23 History Insulin Glargine,Hum.rec.anlog 12 units SQ DAILY 09/30/23 10/26/23 History [Lantus Solostar Pen] Ipratropium-Albuterol Nebulize 3 ml INHALATION RT-QID PRN 09/30/23 10/26/23 History [Duoneb 0.5 mg-3 mg/3 ml Soln] Losartan [Cozaar] 25 mg PO DAILY 09/30/23 10/26/23 History Magnesium 250 mg PO HS 09/30/23 10/26/23 History S-Adenosylmethionine Sul Tosyl 200 mg PO DAILY 09/30/23 10/26/23 History [Eliseo-E] Ibuprofen [Motrin] 600 mg PO DAILY PRN 10/26/23 10/26/23 History diazePAM [Valium] 2 - 4 mg PO DIRECTED PRN 10/26/23 10/26/23 History Allergies Allergy/AdvReac Type Severity Reaction Status Date / Time diphenhydramine AdvReac Hallucinati Verified 10/26/23 21:11 [From Benadryl] ons antihistamines AdvReac Hallucinati Uncoded 10/26/23 21:11 ons Physical Exam Vitals: Vital Signs Temp Pulse Resp BP Pulse Ox 10/26/23 19:00 98.4 F 81 18 136/76 98 Intake and Output 10/26/23 10/26/23 10/26/23 06:59 14:59 22:59 Other: Weight 68.039 kg Results CBC & Chem 7: 10/26/23 19:47 10/26/23 19:47 Labs: Abnormal Lab Results - Last 24 Hours (Table) 02/05/24 02/05/24 02/05/24 Range/Units 19:47 19:47 19:47 RBC 3.75 L (3.80-5.40) m/uL PT 9.7 L (10.0-12.5) sec Chloride 108 H (98-107) mmol/L Glucose 192 H (74-99) mg/dL Alkaline Phosphatase 127 H (38-126) U/L Total Protein 5.8 L (6.3-8.2) g/dL Assessment and Plan Assessment: 78-year-old female with COPD not on home oxygen diabetes mellitus coming in for behavioral concerns and episodes of confusion and hallucination I discussed case with ED doctor accepted the admission for neurology evaluation with symptoms of dementia with anticipated length of stay less than 2 midnights Behavioral changes with episodes of confusion concerning for dementia of Lewy body Fall precautions neurochecks Patient had recent neurology workup with CT of the brain and MRI of the brain MRI done 10 days ago no acute intracranial pathology was identified Monitor vital signs Neurology evaluation Gentle IV fluid hydration normal saline 75 cc/h COPD Supplemental oxygen as needed DuoNebs as needed Diabetes mellitus Insulin sliding scale Possible mild cystitis Urine analysis was not a clean-catch Patient given Rocephin in the ED Follow-up cultures EKG normal sinus rhythm no acute ST changes Chest x-ray no acute cardiopulmonary process Blood work showing white count 6 hemoglobin 11.9 Sodium 137 potassium 4.1 unremarkable BUN 17 creatinine 0.6 unremarkable Lactic acid 0.8 Unremarkable calcium 8.9 Urine drug screen positive for benzos Acute respiratory viral panel negative for influenza RSV and COVID Full code DVT prophylaxis heparin subcu TID
[2023-10-27] MEDS ORDERED: IPRATROPIUM-ALBUTEROL 3 ML NEB INHALATION PRN (00:51)
[2023-10-27 02:18] LABS: Glucose,Whole Blood 115 mg/dL (70-110)
[2023-10-27 07:08] LABS: Glucose,Whole Blood 94 mg/dL (70-110)
[2023-10-27] MEDS: INSULIN ASPART (NovoLOG) 100 UNIT/ML VIAL SQ SCH (07:49)
[2023-10-27] MEDS: SYMBICORT 160-4.5 MCG INHALER INHALATION SCH (07:55)
[2023-10-27] MEDS: SODIUM CHLORIDE 0.9% 1,000 ML IV SCH (08:53)
[2023-10-27] MEDS: ACETAMINOPHEN TAB 325 MG TAB PO PRN (08:53)
[2023-10-27 11:57] LABS: Glucose,Whole Blood 169 mg/dL (70-110)
[2023-10-27 11:59] LABS: Appearance,Urine Clear (Clear); Bilirubin,Urine Negative (Negative); Blood,Urine Negative (Negative); Color,Urine Colorless; Glucose,Urine (UA) Negative (Negative); Ketones,Urine Negative (Negative); Leukocyte Esterase,Urine Negative (Negative); Nitrite,Urine Negative (Negative); Protein,Urine Negative (Negative); Specific Gravity,Urine 1.003 (1.001-1.035); Urobilinogen,Urine <2.0 mg/dL (<2.0)
[2023-10-27] MEDS: HEPARIN SODIUM,PORCINE 5,000 UNIT/ML 1 ML VIAL SQ SCH ×2 (12:24→21:54)
[2023-10-27] MEDS: TIMOLOL 0.5% OPHTH DROPS 5 ML BTL LEFT EYE SCH (12:25)
[2023-10-27] MEDS: LOSARTAN 25 MG TAB PO SCH (12:27)
[2023-10-27] MEDS: ASPIRIN 81 MG PO SCH (12:51)
--- NOTE | 2023-10-27 14:04 | P.PN ---
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 She presented to the emergency department by her daughter on 10/26/2023 secondary to behavioral concerns. Upon arrival to the emergency department, patient underwent full evaluation. Vital signs show blood pressure 136/76, heart rate 81, respiratory rate 18, temp 98.4 F, SpO2 of 98% on room air. EKG was completed showing normal sinus rhythm at 77 bpm. Chest x-ray was completed negative for acute cardiopulmonary process. Labs were completed and reviewed. CBC unremarkable. BMP revealing mild hyperchloremia with chloride of 108 and elevated glucose of 192. Liver profile showing elevated alkaline phosphatase of 127 otherwise normal findings. Troponin was negative at less than 0.012. Urinalysis was contaminated however not significantly concerning for infection. Urine drug screen positive for benzodiazepines otherwise negative. Influenza A, influenza B, RSV, and COVID PCR were negative. Patient was recently worked up for similar complaints and underwent CT of brain on 09/30/2023 and MRI of brain on 10/16/2023. CT brain was negative for acute intracranial process. MRI brain showed no evidence of acute intracranial process showing nonspecific white matter changes likely related to small vessel ischemic disease. Per documentation in chart patient does have episodes of forgetfulness, confusion, and hallucinations. Patient admitted under services with consultation to neurology. Physical exam: Vital signs reviewed and stable. General: Nontoxic, no distress and appears stated age. Derm: Skin warm and dry, normal coloration for ethnicity. Head: Atraumatic, normocephalic and symmetric. Eyes: EOMs intact, no lid lag, and anicteric sclera Mouth: no lip lesions, mucus membranes moist Cardiovascular: regular rate and rhythm with normal S1S2, no murmur, positive posterior tibial pulses bilaterally, and cap refill < 2 seconds. Lungs: Respirations even, regular, and unlabored on room air. Lungs CTA bilaterally, no rhonchi, no rales, no wheezing, and no accessory muscle usage. Abdominal: soft, nontender to palpation, no guarding, no appreciable organomegaly Ext: ROM intact. No gross muscle atrophy, no edema, no contractures Neuro: Speech clear, face symmetrical and CN II-XII grossly intact with no noted focal neuro deficits Psych: Alert and oriented to person, place, time, and situation. Appropriate and pleasant affect. Assessment and Plan of Care: Behavioral changes with episodes of confusion -Neurology consulted, discussed plan of care with neurologist patient to undergo EEG. -Continue neurochecks every 4 hours -Fall precautions, provide safe and supportive care with reorientation/redirection as needed COPD, not in acute exacerbation -Provide supplemental oxygen if needed -DuoNebs as needed for reports of shortness of breath and/for wheezing Abnormal UTI, likely due to contaminated specimen -Urinalysis was contaminated. Repeat urinalysis ordered. Will hold off on additional antibiotics pending repeat urine results. -Patient was given a single dose of Rocephin in the emergency department, we will hold off on further antibiotics pending urine culture results. Hypertension -Continue daily medication regimen with losartan 25 mg daily. Data and imaging reviewed: - Repeat urinalysis ordered and upon follow-up was negative for blood, ketones, or infection. -Vital signs reviewed and stable. Blood pressure 125/68, heart rate 69, respiratory rate 16, temp 97.5 F, and SpO2 of 97% on room air. CODE STATUS: Full code DVT prophylaxis: Heparin Anticipated discharge date: Likely 24 to [address]: Clinical course pending, likely return home with daughter Patient was seen independently by Nurse Pracitioner. This document was prepared using [employer] dictation software. Please allow for errors in boat worker, while rare they do occur. Shiva Sneed NP rendered care for this patient independently, reviewed the findin gs and plan as documented in the note above. I did not physically speak with or examine the patient on this date. Objective - Vital Signs Vital signs: Vital Signs Temp 97.5 F L 10/27/23 02:00 Pulse 76 10/27/23 02:00 Resp 16 10/27/23 02:00 BP 105/64 10/27/23 02:00 Pulse Ox 96 10/27/23 08:06 FiO2 21 10/27/23 08:06 Intake & Output 10/26/23 10/27/23 10/27/23 18:59 06:59 18:59 Weight 68.039 kg Other: # Voids 1 - Labs CBC & Chem 7: 10/26/23 19:47 10/26/23 19:47 Labs: Abnormal Lab Results - Last 24 Hours (Table) 10/26/23 10/26/23 10/26/23 Range/Units 19:47 19:47 19:47 RBC 3.75 L (3.80-5.40) m/uL PT 9.7 L (10.0-12.5) sec Chloride (98-107) mmol/L Glucose (74-99) mg/dL POC Glucose (mg/dL) (70-110) mg/dL Alkaline Phosphatase (38-126) U/L Total Protein (6.3-8.2) g/dL Urine Appearance Cloudy H (Clear) Urine Glucose (UA) Trace H (Negative) Ur Leukocyte Esterase Large H (Negative) Urine WBC 24 H (0-5) /hpf Urine WBC Clumps Few H (None) /hpf Ur Squamous Epith Cells 9 H (0-4) /hpf Urine Bacteria Occasional H (None) /hpf Urine Mucus Rare H (None) /hpf U Benzodiazepines Scrn Detected H (NotDetected) 10/26/23 10/27/23 Range/Units 19:47 02:12 RBC (3.80-5.40) m/uL PT (10.0-12.5) sec Chloride 108 H (98-107) mmol/L Glucose 192 H (74-99) mg/dL POC Glucose (mg/dL) 115 H (70-110) mg/dL Alkaline Phosphatase 127 H (38-126) U/L Total Protein 5.8 L (6.3-8.2) g/dL Urine Appearance (Clear) Urine Glucose (UA) (Negative) Ur Leukocyte Esterase (Negative) Urine WBC (0-5) /hpf Urine WBC Clumps (None) /hpf Ur Squamous Epith Cells (0-4) /hpf Urine Bacteria (None) /hpf Urine Mucus (None) /hpf U Benzodiazepines Scrn (NotDetected)
[2023-10-27 15:03] VITALS: BMI 37.5
[2023-10-27 16:50] LABS: Glucose,Whole Blood 203 mg/dL (70-110)
[2023-10-27 18:29] LABS: Glucose,Whole Blood 194 mg/dL (70-110)
[2023-10-27 20:45] LABS: Glucose,Whole Blood 70 mg/dL (70-110)
[2023-10-27 23:12] LABS: Glucose,Whole Blood 141 mg/dL (70-110)
--- NOTE | 2023-10-28 02:10 | EEG ---
ELECTROENCEPHALOGRAM REPORT PREAMBLE: This is a 78-year-old female with altered mental status and hallucinations. This study is performed to evaluate for any epileptiform activity. EEG FINDINGS: This is a 21-channel digital EEG recorded with video component, utilizing 10/20 international system with referential and bipolar montages. Background consists of well developed, well regulated moderate voltage activity in 9 hertz alpha. Background is posterior dominant and is reactive to eye opening and closing. Some drowsiness was seen with appearance of bilaterally symmetric theta frequency rhythm. Deeper stages of sleep were not seen. No focal or generalized epileptiform activity was seen. IMPRESSION: This is a normal awake and drowsy EEG. No focal, lateralized, or epileptiform activity was seen. MMODL / IJN: [id number] /
[2023-10-28 07:08] LABS: Glucose,Whole Blood 148 mg/dL (70-110)
[2023-10-28 08:07] VITALS: BP 142/67; PULSE 79; RESP 18; TEMP 98.5
--- NOTE | 2023-10-28 08:43 | P.DS ---
Providers Date of admission: 10/26/23 20:50 Expected date of discharge: 10/28/23 Attending physician: Stefani Horta MD Consults: 10/26/23 20:48 Consult Physician Urgent Consulting Provider: Soraya Castro Consult Reason/Comments: Altered mental status, hallucinations Do you want consulting provider notified?: Yes [facility] Hospital Course: Discharge Diagnosis: Behavioral changes with episodes of confusion. COPD, not in acute exacerbation. Continue use of home Symbicort 2 puffs twice daily and albuterol rescue inhaler 2 puffs as needed for shortness of breath and/or wheezing. Abnormal UTI, due to contaminated specimen. Repeat urinalysis negative. Hypertension. Continue daily medication regimen with losartan 25 mg daily. 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 She presented to the emergency department by her daughter on 10/26/2023 secondary to behavioral concerns. Upon arrival to the emergency department, patient underwent full evaluation. Vital signs show blood pressure 136/76, heart rate 81, respiratory rate 18, temp 98.4 F, SpO2 of 98% on room air. EKG was completed showing normal sinus rhythm at 77 bpm. Chest x-ray was completed negative for acute cardiopulmonary process. Labs were completed and reviewed. CBC unremarkable. BMP revealing mild hype rchloremia with chloride of 108 and elevated glucose of 192. Liver profile showing elevated alkaline phosphatase of 127 otherwise normal findings. Troponin was negative at less than 0.012. Urinalysis was contaminated however not significantly concerning for infection. Urine drug screen positive for benzodiazepines otherwise negative. Influenza A, influenza B, RSV, and COVID PCR were negative. Patient was recently worked up for similar complaints and underwent CT of brain on 09/30/2023 and MRI of brain on 10/16/2023. CT brain was negative for acute intracranial process. MRI brain showed no evidence of acute intracranial process showing nonspecific white matter changes likely related to small vessel ischemic disease. Per documentation in chart patient does have episodes of forgetfulness, confusion, and hallucinations. Patient admitted under services with consultation to neurology. Repeat urinalysis ordered and was obtained via clean catch and these results were negative for blood, ketones, or any signs of infection. EEG was completed and was reported to be a normal awake and drowsy EEG with no focal, lateralied or epileptiform activity reported. Pt cleared from neurology standpoint and is medically stable for discharge. Discussed that behavioral changes with memory loss and confusion could be stem from multiple reasons and patient's workup was negative for infectious process and neurological workup. She had no episodes of mental status changes noted during this hospitalization. These episodes could possibly be underlying form of dementia, episodes of hypoglycemia, or a potential adverse effect of medications such as flexeril or valium. Strongly recommemd discontinuation of these medications or if you feel they are absolutely necessary, use with extreme caution as they are known to cause changes in mentation in elderly. Also recommend monitoring for any signs/symptoms of hypoglycemia as this too can result in mental status changes including behavioral changes. Pt did not have these medications and did not have any noted episodes of hypoglycemia during hospitalization, but also did not have any episodes of confusion or behavioral issues. Discussed with patient's daughter at bedside that she will need to follow up outpatient for further evaluation by PCP and recommend evaluation by neuropsychiatrist for further testing. Physical exam: Vital signs reviewed and stable. General: Nontoxic, no distress and appears stated age. Derm: Skin warm and dry, normal coloration for ethnicity. Head: Atraumatic, normocephalic and symmetric. Eyes: EOMs intact, no lid lag, and anicteric sclera Mouth: no lip lesions, mucus membranes moist Cardiovascular: regular rate and rhythm with normal S1S2, no murmur, positive po sterior tibial pulses bilaterally, and cap refill < 2 seconds. Lungs: Respirations even, regular, and unlabored on room air. Lungs CTA bilaterally, no rhonchi, no rales, no wheezing, and no accessory muscle usage. Abdominal: soft, nontender to palpation, no guarding, no appreciable organomegaly Ext: ROM intact. No gross muscle atrophy, no edema, no contractures Neuro: Speech clear, face symmetrical and CN II-XII grossly intact with no noted focal neuro deficits Psych: Alert and oriented to person, place, time, and situation. Appropriate and pleasant affect. A total of 55 minutes of time were spent preparing this complex discharge summary. Pt was discharged on 10/28/2023 at 8:55 AM Patient was seen independently by Nurse Practitioner. This document was prepared using [employer] dictation software. Please allow for errors in acute care physical therapist while rare they do occur. Shiva Sneed NP rendered care for this patient independently, reviewed the findings and plan as documented in the note above. I did not physically speak with or examine the patient on this date. Patient Condition at Discharge: Stable Plan - Discharge Summary Discharge Rx Participant: No New Discharge Prescriptions: New Aspirin 81 mg PO DAILY 21 Days #21 tab Clopidogrel [Plavix] 75 mg PO DAILY 90 Days #90 tablet Continue metFORMIN HCL [Glucophage] 1,000 mg PO BID-W/MEALS Budesonide/Formoterol Fumarate [Symbicort 160-4.5 Mcg Inhaler] 2 puff INHALATION RT-BID Albuterol Sulfate [Albuterol Sulfate Hfa] 2 puff INHALATION RT-Q4H PRN PRN Reason: Shortness Of Breath Losartan [Cozaar] 25 mg PO DAILY Dulaglutide [Trulicity] 0.75 mg SQ TH Calcium Carbonate [Calcium] 600 mg PO DAILY Ascorbic Acid [Vitamin C] 1,000 mg PO DAILY Timolol 0.5% Ophth Soln [Timoptic 0.5% Ophth Soln] 1 drop LEFT EYE BID Insulin Glargine,Hum.rec.anlog [Lantus Solostar Pen] 12 units SQ DAILY Ipratropium-Albuterol Nebulize [Duoneb 0.5 mg-3 mg/3 ml Soln] 3 ml INHALATION RT-QID PRN PRN Reason: Shortness Of Breath Glucagon Emergency Kit 1 mg IM ONCE PRN PRN Reason: LOW BLOOD SUGAR Cholecalciferol [Vitamin D3 (25 Mcg = 1000 Iu)] 50 mcg PO DAILY S-Adenosylmethionine Sul Tosyl [Eliseo-E] 200 mg PO DAILY Magnesium 250 mg PO HS Ibuprofen [Motrin] 600 mg PO DAILY PRN PRN Reason: back pain Discontinued Cyclobenzaprine [Flexeril] 5 mg PO TID PRN PRN Reason: Muscle Pain diazePAM [Valium] 2 - 4 mg PO DIRECTED PRN PRN Reason: 30 min prior to eye injections Discharge Medication List metFORMIN HCL [Glucophage] 1,000 mg PO BID-W/MEALS 02/26/19 [History] Budesonide/Formoterol Fumarate [Symbicort 160-4.5 Mcg Inhaler] 2 puff INHALATION RT-BID 05/19/21 [History] Timolol 0.5% Ophth Soln [Timoptic 0.5% Ophth Soln] 1 drop LEFT EYE BID 05/19/21 [History] Albuterol Sulfate [Albuterol Sulfate Hfa] 2 puff INHALATION RT-Q4H PRN 09/30/23 [History] Ascorbic Acid [Vitamin C] 1,000 mg PO DAILY 09/30/23 [History] Calcium Carbonate [Calcium] 600 mg PO DAILY 09/30/23 [History] Cholecalciferol [Vitamin D3 (25 Mcg = 1000 Iu)] 50 mcg PO DAILY 09/30/23 [History] Dulaglutide [Trulicity] 0.75 mg SQ TH 09/30/23 [History] Glucagon Emergency Kit 1 mg IM ONCE PRN 09/30/23 [History] Insulin Glargine,Hum.rec.anlog [Lantus Solostar Pen] 12 units SQ DAILY 09/30/23 [History] Ipratropium-Albuterol Nebulize [Duoneb 0.5 mg-3 mg/3 ml Soln] 3 ml INHALATION RT-QID PRN 09/30/23 [History] Losartan [Cozaar] 25 mg PO DAILY 09/30/23 [History] Magnesium 250 mg PO HS 09/30/23 [History] S-Adenosylmethionine Sul Tosyl [Eliseo-E] 200 mg PO DAILY 09/30/23 [History] Ibuprofen [Motrin] 600 mg PO DAILY PRN 10/26/23 [History] Aspirin 81 mg PO DAILY 21 Days #21 tab 10/28/23 [Rx] Clopidogrel [Plavix] 75 mg PO DAILY 90 Days #90 tablet 10/28/23 [Rx] Follow up Appointment(s)/Referral(s): Dimas Catherine DO [Primary Care Provider] - 1-2 days Patient Instructions/Handouts: Aspirin (By mouth), Clopidogrel (By mouth) Activity/Diet/Wound Care/Special Instructions: Activity: As tolerated. Take breaks as needed. Diet: Heart healthy and carb consistent diet. Avoid salts, or foods with hidden salts such as canned or boxed foods and frozen dinners. Extra salt makes your heart work harder and traps the fluid in your body for longer. Special Instructions: Take all of your medications as directed and remember to keep all of your doctor's appointments and follow-up as needed. Your episodes of mental status changes, could possibly be caused by a multitude of reasons. Some of these reasons could be caused due to underlying form of dementia, episodes of hypoglycemia, or a potential adverse effect of medications such as flexeril or valium. Strongly recommemd discontinuation of these medications, however if you feel they are absolutely necessary, it is advised t hat you use with extreme caution as these medications are known to cause changes in mentation in the elderly. Also recommend monitoring for any signs/symptoms of hypoglycemia, as this too can result in mental status changes including behavioral changes. You did not have these medications and did not have any noted episodes of hypoglycemia during this hospitalization, However you also did not have any episodes of confusion or behavioral issues for us to observe. Per recommendations of neurologist, you are being discharged home on dual antiplatelet therapy with aspirin 81 mg daily and Plavix 75 mg daily. Per his instructions after 21 days discontinue use of aspirin and continue with Plavix 75 mg daily indefinitely. It is recommended for you to follow up outpatient for further evaluation by your PCP and recommend evaluation by neuropsychiatrist for further testing Thank you for allowing us to participate in your care, it was truly a pleasure having you for our patient!!! Discharge/Stand Alone Forms: Who Do I Call?, Community Resources, Help In The Home, Work/Release Restrictions Form Discharge Disposition: HOME SELF-CARE
--- NOTE | 2023-10-28 09:43 | P.CNNES ---
History of Present Illness Consult date: 10/27/23 Requesting physician: Ken Ash Reason for Consult: Altered mental status, hallucinations History of Present Illness: Patient is a 78-year-old female, who is seeing impaired from diabetic retinopathy, came to the hospital by ambulance yesterday at 6:59 PM for memory loss, confusion. Patient lives by herself, and can function fairly well. 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 She takes a hot bath every day. Patient's daughter mentions that prior to arrival, she heard a terrible noise like a guttural cry, and when patient's daughter went in there, she was in the tub, and her legs would not work. She could not get up. Patient's daughter put the towels and she could not get her up and the legs would not function. Daughter helped and called the ambulance. Patient started sobbing. Patient states that she has been frequently on "verge of tears". Patient denies depression, although she is under a lot of stress because of her being in [place] for the last 5 years. Patient states that she does not feel depressed, but does have subconscious stress because of situation. Patient's daughter has noticed that for the last 1 month, patient has been having some hallucinations. Last night she was seeing "dots on the maldonado". Previously she used to see cartoon characters. Sometimes she will see dominique in the neighbors, sometimes she sees men dressed up as a clown. This has been going on for the past 1 month. Patient was seen by departmental secretary and they felt that it was possible Matt Bonnet syndrome. However patient was recommended to be seen by a neurologist, and they have an appointment in December [address] Bharat Santiago in [facility]. With all these hallucinations, patient's family is concerned if patient has Lewy body dementia. Patient's family believes that her memory "comes and goes". Patient states that she vapes and in a few minutes, the memory comes back. Patient goes to the school every Thursday and Thursday. The bus comes to pick her up. She usually sits inside, looking at the window for the bus. On Thursday, patient started waiting in the garage with the garage door down and the lights were out. This was unusual for the patient. They also believe the patient cannot live by herself and they are considering patient to be moved to assisted living. Patient has chronic back pain, was seen by orthopedic surgeon Dr. Mcguire, if patient has Lewy body dementian in around July 2023, who initially recommended back surgery but then said she was not a candidate. Patient was recommended to make sure that she does not fall. Since then patient has fell twice, 1 time while she was in [place] in August 2020 when she was walking with a walker and it tipped over. Another time she was walking the dog and she fell. Patient states the fall and the knee [place] happened before she was seen by the orthopedic surgeon although patient's daughter is very positive that both of the falls occurred after she was seen by the surgeon. Patient notices that she has to pick her right leg up to get into the car. She has constant pain in the right lateral hip and leg region. She has some balance problems because of her back issues. MRI of the lumbar spine and thoracic spine without contrast on 07/21/2023 revealed degeneration changes of the spine which are worst at T12-L1 with disc bulge with mild spinal canal stenosis and severe right and moderate to severe left neural foraminal stenosis. Grade 2 anterolisthesis of L4 and L5 with severe bilateral neural foraminal stenosis and mild to moderate spinal canal stenosis. Grade 1 anterolisthesis of T1 on T2 and T2 on T3 and T3 on T4. I personally reviewed MRI and agree with the findings. Patient's family have noticed patient being confused, sometimes having full conversation by herself with nobody around. It does not happen daily, but periodically they have noticed. One of the patient's daughter who was present here has witnessed herself 5-6 times in the last 1 month. As per EMS flowsheet, when they arrived, family were at the scene, who mentioned patient has been acting inappropriately since she woke up in the morning. Daughter on the scene states that she is "giddy like a school girl" and weak, which is not normal for her. Patient was taking a bath and was unable to get out of tub. Patient was alert and oriented x 4, answering all questions appropriately. Stroke scale was negative. Patient was in normal sinus rhythm. Patient's blood pressure was 157/82, pulse rate 95 respiration 16 saturation 98% , blood sugar 211. Blood test shows normal CBC, PT PTT, normal CMP, troponin, UA shows large amount of leukocyte esterase, 24 WBC and a few WBC clumps. Occasional bacteria. Urine drug screen positive for benzodiazepine. Influenza, RSV and coronavirus PCR negative. EKG and chest x-ray are normal. Patient just had completed MRI of the brain with and without contrast outpatient on 10/16/2023 for "hallucinations, feels like falling forward and backwards when closing eyes" which revealed no evidence of intracranial mass, acute/subacute infarct or abnormal enhancement. Nonspecific white matter changes, likely related to small vessel ischemic disease. Carotid Doppler performed 08/26/2023 revealed no evidence for hemodynamically significant stenosis with antegrade flow in both vertebral almaz rosina. Patient gets monthly injections in the eyes for diabetic retinopathy. She has diabetes for last 10 years. Patient does take aspirin 81 mg daily for a long time. 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 Review of Systems Constitutional: Reports chills, Reports weight loss, Denies fever Eyes: bilateral blurred vision, bilateral loss of vision, denies diplopia, denies pain Ears: bilateral: decreased hearing (mild), deny: ear discharge Ears, nose, mouth and throat: Reports hoarseness, Reports vertigo (We discussed so no chest pain or shortness of breathOkay once in the elevator.), Denies headache, Denies sore throat Cardiovascular: Reports lightheadedness, Denies chest pain, Denies shortness of breath Respiratory: Reports cough, Reports excessive sputum Gastrointestinal: Denies abdominal pain, Denies diarrhea, Denies nausea, Denies vomiting Musculoskeletal: Reports low back pain, Reports neck pain Integumentary: Denies pruritus, Denies rash Neurological: Reports as per HPI Psychiatric: Denies anxiety, Denies depression Endocrine: Reports fatigue, Reports weight change Past Medical History Past Medical History: Asthma, Cancer, CVA/TIA, Diabetes Mellitus, Eye Disorder, Osteoarthritis (OA) Additional Past Medical History / Comment(s): Hx cervical cancer 30 yrs ago, laser surgery. Diabetic retinopathy. Hx CVA - undiagnosed 2 yrs ago. Poor b alance. History of Any Multi-Drug Resistant Organisms: None Reported Past Surgical History: Cholecystectomy, Joint Replacement Additional Past Surgical History / Comment(s): Bilateral knee replacements. Past Anesthesia/Blood Transfusion Reactions: No Reported Reaction Additional Past Anesthesia/Blood Transfusion Reaction / Comment(s): Patient to accept NO blood products at any time per muslim preference. Smoking Status: Former smoker - Past Family History Sister(s) Family Medical History: Cancer Additional Family Medical History / Comment(s): Breast cancer. Medications and Allergies Home Medications Medication Instructions Recorded Confirmed Type metFORMIN HCL [Glucophage] 1,000 mg PO BID-W/MEALS 02/26/19 10/26/23 History Budesonide/Formoterol Fumarate 2 puff INHALATION RT-BID 05/19/21 10/26/23 History [Symbicort 160-4.5 Mcg Inhaler] Timolol 0.5% Ophth Soln [Timoptic 1 drop LEFT EYE BID 05/19/21 10/26/23 History 0.5% Ophth Soln] Albuterol Sulfate [Albuterol 2 puff INHALATION RT-Q4H PRN 09/30/23 10/26/23 History Sulfate Hfa] Ascorbic Acid [Vitamin C] 1,000 mg PO DAILY 09/30/23 10/26/23 History Calcium Carbonate [Calcium] 600 mg PO DAILY 09/30/23 10/26/23 History Cholecalciferol [Vitamin D3 (25 50 mcg PO DAILY 09/30/23 10/26/23 History Mcg = 1000 Iu)] Dulaglutide [Trulicity] 0.75 mg SQ TH 09/30/23 10/26/23 History Glucagon Emergency Kit 1 mg IM ONCE PRN 09/30/23 10/26/23 History Insulin Glargine,Hum.rec.anlog 12 units SQ DAILY 09/30/23 10/26/23 History [Lantus Solostar Pen] Ipratropium-Albuterol Nebulize 3 ml INHALATION RT-QID PRN 09/30/23 10/26/23 History [Duoneb 0.5 mg-3 mg/3 ml Soln] Losartan [Cozaar] 25 mg PO DAILY 09/30/23 10/26/23 History Magnesium 250 mg PO HS 09/30/23 10/26/23 History S-Adenosylmethionine Sul Tosyl 200 mg PO DAILY 09/30/23 10/26/23 History [Eliseo-E] Ibuprofen [Motrin] 600 mg PO DAILY PRN 10/26/23 10/26/23 History Allergies Allergy/AdvReac Type Severity Reaction Status Date / Time diphenhydramine AdvReac Hallucinati Verified 10/26/23 21:11 [From Benadryl] ons antihistamines AdvReac Hallucinati Uncoded 10/26/23 21:11 ons Physical Examination - Vital Signs Vital Signs: Vital Signs Temp Pulse Pulse Resp BP BP Pulse Ox 10/27/23 09:47 97.5 F L 69 16 125/68 97 10/27/23 08:06 96 10/27/23 02:00 97.5 F L 76 16 105/64 96 10/27/23 00:51 97.9 F 73 18 150/84 97 10/27/23 00:05 98.1 F 84 18 132/76 95 10/26/23 22:06 76 18 136/72 97 10/26/23 19:00 98.4 F 81 18 136/76 98 FiO2 10/27/23 09:47 10/27/23 08:06 21 10/27/23 02:00 10/27/23 00:51 10/27/23 00:05 10/26/23 22:06 10/26/23 19:00 Intake and Output 10/26/23 10/27/23 10/27/23 22:59 06:59 14:59 Other: # Voids 1 Weight 68.039 kg 68.039 kg Patient is an elderly female, very pleasant, in no acute distress. Patient is alert awake oriented to time place and person. Patient knows it is October 2023 and that she is in [facility] in [place]. She knows name of the current president. Speech and language functions are normal. Patient can name and repeat very well. No aphasia or dysarthria. Attention, concentration and fund of knowledge is adequate. Detailed cognitive function testing deferred. On cranial nerve examination, pupils are equal, round and reacting to light, visual knight are full on confrontation, with no neglect on double simultaneous stimulation. Patient has significantly decreased visual acuity due to diabetic retinopathy. Her extraocular muscles are intact with no nystagmus. Face is symmetric, tongue protrudes to the midline. Palatal elevation and sensation normal, hearing and shoulder shrug normal, facial sensation normal. On muscle strength testing, there is no pronator drift and the strength is normal in arms and legs distally and proximally, except hip flexion which is 4 bilaterally. Rest of the muscle strength is normal. Deep tendon reflexes are symmetric 1 all over and plantars downgoing bila terally. Sensory to touch is equal with no neglect on double simultaneous stimulation. Cerebellar function showed no ataxia for [id number] testing. No dysdiadochokinesia. No ataxia for [id number] testing on either side. Tone and bulk of muscles normal. Gait deferred.. On general examination, there is no carotid bruit or murmur, S1-S2 audible. Chest is clear on consultation. Abdomen is soft nontender. No organomegaly, bowel sounds present. Peripheral pulses are present. No peripheral edema. Results - Laboratory Findings CBC and BMP: 10/26/23 19:47 10/26/23 19:47 Abnormal Lab Findings: Abnormal Labs 10/26/23 10/26/23 10/26/23 19:47 19:47 19:47 RBC 3.75 L PT 9.7 L Chloride Glucose POC Glucose (mg/dL) Alkaline Phosphatase Total Protein Urine Appearance Cloudy H Urine Glucose (UA) Trace H Ur Leukocyte Esterase Large H Urine WBC 24 H Urine WBC Clumps Few H Ur Squamous Epith Cells 9 H Urine Bacteria Occasional H Urine Mucus Rare H U Benzodiazepines Scrn Detected H 10/26/23 10/27/23 19:47 02:12 RBC PT Chloride 108 H Glucose 192 H POC Glucose (mg/dL) 115 H Alkaline Phosphatase 127 H Total Protein 5.8 L Urine Appearance Urine Glucose (UA) Ur Leukocyte Esterase Urine WBC Urine WBC Clumps Ur Squamous Epith Cells Urine Bacteria Urine Mucus U Benzodiazepines Scrn Assessment and Plan Assessment: * Hallucinations, rule out Matt Bonnet syndrome. Rule out delirium. No e vidence of UTI. No other metabolic dysfunction noted. * Mild memory disturbance, rule out early stage of dementia. Patient does not have parkinsonism, therefore Lewy body appears less likely. * Seeing impaired due to diabetic retinopathy. * Chronic back pain, likely due to severe degenerative disc disease, lumbar spondylolisthesis. Patient prior to arrival was not able to get up from the tub. Strongly suspect related to severe lumbar degenerative disc disease, spondylolisthesis and spinal stenosis. Patient has been seen by orthopedic surgery, and was recommended no surgical intervention. * Diabetes Plan: * Patient has presented with hallucinations of unclear cause. No evidence of acute metabolic dysfunction. No UTI or pneumonia. 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 Patient already had extensive workup performed recently which was all negative, as mentioned below. Rule out early stage of dementia. * Recent outpatient MRI of the brain with and without contrast performed on 10/16/2023 for "hallucinations" revealed no evidence of intracranial mass, acute/subacute infarct or abnormal enhancement. Nonspecific white matter changes, likely related to small vessel ischemic disease. * Carotid Doppler performed 08/26/2023 revealed no evidence for hemodynamically significant stenosis with antegrade flow in both vertebral arteries. * Hemoglobin A1c 6.4 on 04/02/2023 * Lipid panel with cholesterol 187, LDL 80, HDL 71, triglycerides 177 * B12 630 on 10/06/2023, folate 19.20, TSH is normal 1.98. * We will check EEG rule out any epileptiform activity. * Continue aspirin 81 mg daily. * Recommend patient follow-up with neurologist in 1 to 2 weeks for further evaluation of cognitive functions to rule out MCI. * Patient has severe lumbar degenerative disc disease. Her inability to get up from the bathtub (prior to arrival) is most likely related to severe lumbar degenerative disc disease, with grade 2 spondylolisthesis. Patient strongly recommended to use walker all the time to prevent any falls, otherwise she can get worsening of her leg functions. Patient's daughter believes that patient is not compliant and often does not use a device. Patient was counseled about consistent use of the walker. * Discussed with primary team in detail. Thank you for the consult. Time with Patient: Greater than 30
[2023-10-28 11:40] LABS: Glucose,Whole Blood 196 mg/dL (70-110)
--- NOTE | 2023-10-28 12:45 | CA ---
Transthoracic Echo Report Name: Margi Carney Age: 78 Gender: F : 1945 Exam Date: 10/28/2023 11:08 Exam Location: [facility] Ht (in): 53 Wt (lb): 150 Ordering Physician: Soraya Castro MD Attending/Referring Phys: Social Insurance Administrator Nery Parker RDCS Procedure CPT: Indications: Leg twitching, r/o TIA Cardiac Hx: Technical Quality: Fair Contrast 1: Total Dose (mL): Contrast 2: Total Dose (mL): MEASUREMENTS (Male / Female) Normal Values 2D ECHO LV Diastolic Diameter PLAX 3.0 cm 4.2 - 5.9 / 3.9 - 5.3 cm LV Systolic Diameter PLAX 2.0 cm IVS Diastolic Thickness 1.4 cm 0.6 - 1.0 / 0.6 - 0.9 cm LVPW Diastolic Thickness 0.9 cm 0.6 - 1.0 / 0.6 - 0.9 cm LV Relative Wall Thickness 0.8 LA Systolic Diameter LX 4.4 cm 3.0 - 4.0 / 2.7 - 3.8 cm Ascending Aorta Diameter 3.2 cm DOPPLER AV Peak Velocity 124.4 cm/s AV Peak Gradient 6.2 mmHg LVOT Peak Velocity 78.9 cm/s LVOT Peak Gradient 2.5 mmHg MR Peak Velocity 400.8 cm/s MR Peak Gradient 64.3 mmHg Mitral E Point Velocity 83.3 cm/s Mitral A Point Velocity 94.1 cm/s Mitral E to A Ratio 0.9 MV Deceleration Time 229.7 ms MV E' Velocity 4.7 cm/s Mitral E to MV E' Ratio 17.6 TR Peak Velocity 256.8 cm/s TR Peak Gradient 26.4 mmHg PV Peak Velocity 67.3 cm/s PV Peak Gradient 1.8 mmHg FINDINGS Left Ventricle Left ventricular ejection fraction is estimated at 55-60 %. Mild left ventricle hypertrophy.normal left ventricular wall motion. Left ventricular cavity size normal. Right Ventricle Normal right ventricular size and function. Right Atrium Mild right atrial dilatation. Left Atrium Moderately increased left atrial diameter. Mitral Valve Mitral annular calcification. Mild mitral regurgitation. Aortic Valve Trileaflet aortic valve.aortic valve sclerosis. Tricuspid Valve Mild tricuspid regurgitation.structurally normal tricuspid valve. Pulmonic Valve Pulmonic valve not well visualized. Pericardium No pericardial effusion. Aorta Normal size aortic root and proximal ascending aorta. CONCLUSIONS 1. Normal left ventricle size and systolic function 2. Mild mitral and tricuspid regurgitation Previewed by: Dr. Rigoberto Hernadez MD (Electronically Signed) Final Date: 28 October 2023 12:44
--- NOTE | 2023-10-28 15:59 | P.PN ---
Subjective Progress Note Date: 10/28/23 Patient was seen for a follow-up. Patient's daughter was also present today. Apparently last evening, patient has an episode, in which patient developed twitching of the left leg, that lasted for about half an hour to an hour. Patient subsequently also developed sudden onset of hallucination, in which she was seeing roadmap on the wall. It lasted for about 1 to 2 hours. At present all symptoms have resolved. Regarding aspirin intake, after discussing with patient's both daughters, it was discovered that patient was off aspirin for a few weeks. Patient told her daughter about running out of aspirin, therefore patient's daughter gave her, her own aspirin about 2 weeks ago. She has been on aspirin for last 2 weeks. Based upon the symptoms, concerned about TIA. EEG did not reveal any epile ptiform activity. Objective - Vital Signs Vital signs: Vital Signs Temp 98.5 F 10/28/23 07:25 Pulse 79 10/28/23 07:25 Resp 18 10/28/23 07:25 BP 142/67 10/28/23 07:25 Pulse Ox 96 10/28/23 07:25 FiO2 21 10/27/23 08:06 Intake & Output 10/27/23 10/28/23 10/28/23 18:59 06:59 18:59 Output Total 500 Balance -500 Weight 68.039 kg Output: Urine 500 Other: Voiding Method Toilet Toilet # Voids 1 4 # Bowel Movements 1 - Exam Patient is sitting comfortably in the chair, fully dressed, ready to go home. Mentation is completely normal. Examination unchanged. - Labs CBC & Chem 7: 10/26/23 19:47 10/26/23 19:47 Labs: Abnormal Lab Results - Last 24 Hours (Table) 10/27/23 10/27/23 10/27/23 Range/Units 16:49 18:27 23:10 POC Glucose (mg/dL) 203 H 194 H 141 H (70-110) mg/dL Hemoglobin A1c (<=6.0) % 10/28/23 10/28/23 10/28/23 Range/Units 06:43 07:07 11:38 POC Glucose (mg/dL) 148 H 196 H (70-110) mg/dL Hemoglobin A1c 7.1 H (<=6.0) % Microbiology - Last 24 Hours (Table) 10/26/23 21:16 Blood Culture - Preliminary Blood Assessment and Plan Assessment: * Possible TIA, manifesting with jerking of the left leg, lasting for about half an hour to an hour. Patient also had an episode of visual hallucination, seeing roadmap on the wall, that lasted for about 1 to 2 hours. Symptoms are suggestive of possible TIA, less likely seizures. Matt Bonnet syndrome is also in the differential. No obvious cause for delirium identified. No evidence of UTI. No other metabolic dysfunction noted. * Mild memory disturbance, rule out early stage of dementia. Patient does not have parkinsonism, therefore Lewy body appears less likely. * Seeing impaired due to diabetic retinopathy. * Chronic back pain, likely due to severe degenerative disc disease, lumbar spondylolisthesis. Patient prior to arrival was not able to get up from the tub. Strongly suspect related to severe lumbar degenerative disc disease, spondylolisthesis and spinal stenosis. Patient has been seen by orthopedic surgery, and was recommended no surgical intervention. * Diabetes Plan: * Patient had an episode of athetoid movement of left lower extremity that lasted for about half an hour to an hour. Also had visual hallucination, that lasted for about 1 to 2 hours. Suspect TIA. Patient has been off aspirin for a few weeks, just started back on aspirin 2 weeks ago. Patient does have multiple vascular risk factors. No evidence of acute metabolic dysfunction. No UTI or pneumonia. * Recent outpatient MRI of the brain with and without contrast performed on 10/16/2023 for "hallucinations" revealed no evidence of intracranial mass, acute/subacute infarct or abnormal enhancement. Nonspecific white matter changes, likely related to small vessel ischemic disease. * Carotid Doppler performed 08/26/2023 revealed no evidence for hemodynamically significant stenosis with antegrade flow in both vertebral arteries. * Hemoglobin A1c 6.4 on 04/02/2023. Repeat hemoglobin A1c today is 7.1, indicating slight worsening of diabetes. * Lipid panel with cholesterol 187, LDL 80, HDL 71, triglycerides 177 * B12 630 on 10/06/2023, folate 19.20, TSH is normal 1.98. * Stat 2D echo performed, which revealed normal left ventricular size and systolic function with EF 55 to 60%. Mild left ventricular hypertrophy. Moderately increased left atrial diameter. * Patient will be started on Plavix 75 mg daily. Suggest dual antiplatelet medication with aspirin 81 mg, Plavix 75 mg for 21 days. There after May stop aspirin and continue Plavix. However technically, patient has been off aspirin for few weeks before she resumed it couple weeks ago. Therefore uncertain if he can correlate aspirin failure. * Strongly recommend patient follow-up with neurologist in 2 to 4 weeks. Patient has an appointment with neurologist in December 2023. Recommend calling the neurology office to get it earlier otherwise may go to a different neurologist. * EEG 10/27/2023 was normal awake and drowsy. No focal, lateralized or e pileptiform activity was seen. * Continue aspirin 81 mg daily. * Patient has severe lumbar degenerative disc disease. Her inability to get up from the bathtub (prior to arrival) is most likely related to severe lumbar degenerative disc disease, with grade 2 spondylolisthesis. Patient strongly recommended to use walker all the time to prevent any falls, otherwise she can get worsening of her leg functions. Patient's daughter believes that patient is not compliant and often does not use a device. Patient was counseled about consistent use of the walker. * Discussed with primary team in detail. Neurologically clear for discharge with above recommendations.
== END 2023-10-28 13:15 | disposition home or self-care (01) ==
LOC: EC 18:59 → 6NMEDSUR 20:50 → 5NMEDONC 23:13
PROVIDERS: ADMIT Internal Medicine; ATTEND Internal Medicine
DX: R41.0 Disorientation, unspecified (principal); R44.1 Visual hallucinations; R41.3 Other amnesia; M54.9 Dorsalgia, unspecified; G89.29 Other chronic pain; E11.319 Type 2 diabetes mellitus with unspecified diabetic retinopathy without macular edema; J44.9 Chronic obstructive pulmonary disease, unspecified; F41.9 Anxiety disorder, unspecified; E11.40 Type 2 diabetes mellitus with diabetic neuropathy, unspecified; I10 Essential (primary) hypertension; R82.90 Unspecified abnormal findings in urine; Z20.822 Contact with and (suspected) exposure to COVID-19; Z85.41 Personal history of malignant neoplasm of cervix uteri; Z86.73 Personal history of transient ischemic attack (TIA), and cerebral infarction without residual deficits; Z87.891 Personal history of nicotine dependence; Z79.51 Long term (current) use of inhaled steroids; Z79.82 Long term (current) use of aspirin; Z79.84 Long term (current) use of oral hypoglycemic drugs; Z79.899 Other long term (current) drug therapy
CPT/HCPCS: 96361 ×2; 96365; 96372 ×2; 96375; 99285; 36415; 94640 ×3; 94760; 95816; 93005; 93306; 80053; 83605; 84484; 85025; 85610; 85730; 81003; 81001; 87040; 80306; 83036; 87636; 71046; G0378 ×4; J1644 ×2; J0696 ×2

== ENCOUNTER → 2024-04-01 | Outpatient (CLI) | payer MEDICARE, OTHER ==
--- NOTE | 2024-04-01 15:27 | CT ---
EXAMINATION TYPE: CT chest wo con DATE OF EXAM: 04/01/2024 COMPARISON: 12/18/2022 HISTORY: f/u nodule CT DLP: 372 mGycm. Automated Exposure Control for Dose Reduction was Utilized. TECHNIQUE: CT scan of the thorax is performed without IV contrast. FINDINGS: There is a stable sub-6 mm nodule in the right middle lobe. No new or suspicious lung mass or nodule is seen. There is no consolidative density or abnormal interstitial density. There is no pleural effusion, pleural thickening or pneumothorax. The great vessels the chest are normal. There is no mediastinal, hilar or axillary adenopathy. Limited scanning through the upper abdomen reveals cholecystectomy. No focal osseous lesions are seen. IMPRESSION: Stable sub-6 mm nodule in the right middle lobe. No new abnormality seen.
== END | disposition home or self-care (01) ==
LOC: RADCTMAIN 14:56
PROVIDERS: ATTEND Internal Medicine
DX: R91.1 Solitary pulmonary nodule (principal)
CPT/HCPCS: 71250

== ENCOUNTER 2024-05-16 07:29 | Observation (INO) | payer MEDICARE, OTHER ==
--- NOTE | 2024-05-16 08:00 | ED ---
General Adult HPI - General Chief complaint: Chest Pain Stated complaint: Chest Pain Time Seen by Provider: 05/16/24 07:31 Source: patient Mode of arrival: ambulatory Limitations: no limitations - History of Present Illness Initial comments: Dictation was produced using [email or web address] dictation software. please excuse any grammatical, word or spelling errors. Chief Complaint: 79-year-old female with chest pain History of Present Illness: Patient is 79-year-old female has past medical history of diabetes, stroke asthma states that since last night she has been having an upper abdominal lower chest pain. States it is constant dull. Nonradiating not associate diaphoresis or nausea. Patient denies any history of cardiac comorbidities. No history of heart attacks. The ROS documented in this emergency department record has been reviewed and confirmed by me. Those systems with pertinent positive or negative responses have been documented in the HPI. All other systems are other negative and/or noncontributory. - Related Data Home Medications Medication Instructions Recorded Confirmed metFORMIN HCL [Glucophage] 1,000 mg PO BID-W/MEALS 02/26/19 10/26/23 Budesonide/Formoterol Fumarate 2 puff INHALATION RT-BID 05/19/21 10/26/23 [Symbicort 160-4.5 Mcg Inhaler] Timolol 0.5% Ophth Soln [Timoptic 1 drop LEFT EYE BID 05/19/21 10/26/23 0.5% Ophth Soln] Albuterol Sulfate [Albuterol 2 puff INHALATION RT-Q4H PRN 09/30/23 10/26/23 Sulfate Hfa] Ascorbic Acid [Vitamin C] 1,000 mg PO DAILY 09/30/23 10/26/23 Calcium Carbonate [Calcium] 600 mg PO DAILY 09/30/23 10/26/23 Cholecalciferol [Vitamin D3 (25 50 mcg PO DAILY 09/30/23 10/26/23 Mcg = 1000 Iu)] Dulaglutide [Trulicity] 0.75 mg SQ TH 09/30/23 10/26/23 Glucagon Emergency Kit 1 mg IM ONCE PRN 09/30/23 10/26/23 Insulin Glargine,Hum.rec.anlog 12 units SQ DAILY 09/30/23 10/26/23 [Lantus Solostar Pen] Ipratropium-Albuterol Nebulize 3 ml INHALATION RT-QID PRN 09/30/23 10/26/23 [Duoneb 0.5 mg-3 mg/3 ml Soln] Losartan [Cozaar] 25 mg PO DAILY 09/30/23 10/26/23 Magnesium 250 mg PO HS 09/30/23 10/26/23 S-Adenosylmethionine Sul Tosyl 200 mg PO DAILY 09/30/23 10/26/23 [Eliseo-E] Ibuprofen [Motrin] 600 mg PO DAILY PRN 10/26/23 10/26/23 Previous Rx's Medication Instructions Recorded Aspirin 81 mg PO DAILY 21 Days #21 tab 10/28/23 Clopidogrel [Plavix] 75 mg PO DAILY 90 Days #90 tablet 10/28/23 Allergies Allergy/AdvReac Type Severity Reaction Status Date / Time diphenhydramine AdvReac Hallucinati Verified 05/16/24 07:35 [From Divya] ons antihistamines AdvReac Hallucinati Uncoded 05/16/24 07:35 ons Review of Systems ROS Statement: Those systems with pertinent positive or pertinent negative responses have been documented in the HPI. ROS Other: All systems not noted in ROS Statement are negative. Past Medical History Past Medical History: Asthma, Cancer, CVA/TIA, Diabetes Mellitus, Eye Disorder, Osteoarthritis (OA) Additional Past Medical History / Comment(s): Hx cervical cancer 30 yrs ago, laser surgery. Diabetic retinopathy. Hx CVA - undiagnosed 2 yrs ago. Poor balance. Hallucinations of "pink and blue dots" x 6months. History of Any Multi-Drug Resistant Organisms: None Reported Past Surgical History: Cholecystectomy, Joint Replacement Additional Past Surgical History / Comment(s): Bilateral knee replacements. Past Anesthesia/Blood Transfusion Reactions: No Reported Reaction Additional Past Anesthesia/Blood Transfusion Reaction / Comment(s): Patient to accept NO blood products at any time per caodaism preference. Past Psychological History: No Psychological Hx Reported Smoking Status: Former smoker Past Alcohol Use History: Occasional Past Drug Use History: None Reported - Past Family History Sister(s) Family Medical History: Cancer Additional Family Medical History / Comment(s): Breast cancer. General Exam - General Exam Comments Initial Comments: PHYSICAL EXAM: General Impression: Alert and oriented x3, not in acute distress HEENT: Normocephalic atraumatic, extra-ocular movements intact, pupils equal and reactive to light bilaterally, mucous membranes moist. Cardiovascular: Heart regular rate and rhythm Chest: Able to complete full sentences, no retractions, no tachypnea Abdomen: abdomen soft, non-tender, non-distended, no organomegaly Musculoskeletal: Pulses present and equal in all extremities, no peripheral edema Motor: no focal deficits noted Neurological: CN II-XII grossly intact, no focal motor or sensory deficits noted Skin: Intact with no visualized rashes Psych: Normal affect and mood Limitations: no limitations Course Vital Signs 05/16/24 05/16/24 05/16/24 07:30 07:36 08:38 Temperature 98.1 F Pulse Rate 71 72 Pulse Rate [ 71 Mobile Practice Lead ] Respiratory 18 18 Rate Blood Pressure 126/71 110/55 O2 Sat by Pulse 97 95 Oximetry EKG Findings - EKG Comments: EKG Findings:: My EKG interpretation: Ventricular rate 70, sinus rhythm, period of old 153, cures 142, QTc 4 7. No HI prolongation, no QTC prolongation, no ST or T-wave changes noted. EKG compared to October 26, 2023 showing no changes. Overall, this EKG is unremarkable Medical Decision Making - Medical Decision Making Was pt. sent in by a medical professional or institution (, PA, TWISTER TENDER PAPER, urgent care, hospital, or halfway...) When possible be specific @ -No Did you speak to anyone other than the patient for history (EMS, parent, family, police, friend...)? What history was obtained from this source @ -Some history obtained from EMS. Family also arrived later states that patient has been exhibiting strange behavior Did you review nursing and triage notes (agree or disagree)? Why? @ -I reviewed and agree with nursing and triage notes Were old charts reviewed (outside hosp., previous admission, EMS record, old EKG, old radiological studies, urgent care reports/EKG's, halfway records)? Report findings @ -No old charts were reviewed Differential Diagnosis (chest pain, altered mental status, abdominal pain women, abdominal pain men, vaginal bleeding, musculoskeletal, weakness, fever, dyspnea, syncope, headache, dizziness, GI bleed, back pain, seizure, CVA, palpatations, mental health)? @ -Differential Chest Pain: Stable Angina, Unstable Angina, STEMI, NSTEMI Aortic Dissection, Pneumothorax, Musculoskeletal, Esophageal Spasm GERD, Cholecystitis, Pancreatitis, Zoster, this is not meant to be an all-inclusive list. EKG interpreted by me (3pts min.). @ -See above X-rays interpreted by me (1pt min.). @ -Chest x-ray is nonacute CT interpreted by me (1pt min.). @ -None done U/S interpreted by me (1pt. min.). @ -None done What testing was considered but not performed or refused? (CT, X-rays, U/S, labs)? Why? @ -None What meds were considered but not given or refused? Why? @ -None Was smoking cessation discussed for >3mins.? @ -No Were there social determinants of health that impacted care today? How? (Homelessness, low income, unemployed, alcoholism, drug addiction, transportation, low edu. Level, literacy, decrease access to med. care, usp, rehab)? @ -No Was there de-escalation of care discussed even if they declined (Discuss DNR or withdrawal of care, Hospice)? DNR status @ -No What co-morbidities impacted this encounter? (DM, HTN, Smoking, COPD, CAD, Cancer, CVA, ARF, Chemo, Hep., AIDS, mental health diagnosis, sleep apnea, morbid obesity)? @ -Diabetes Was patient admitted / discharged? Hospital course, mention meds given and route, prescriptions, significant lab abnormalities, going to OR and other pertinent info. @ -79-year-old female with atypical chest pain with typical features. Vital signs stable. EKG is unremarkable. Physical examination is benign. Laboratory evaluation is unremarkable. Troponin is negative. Patient agreeable for observation admission. Family requests psychiatry consult for bizarre behavior that patient has been having at home. Did you discuss the management of the patient with other professionals (professionals i.e. , PA, TWISTER TENDER PAPER, lab, RT, psych nurse, social media specialist, hyster machine operator, teacher, chief safety officer, caseworker protective services)? Give summary @ -No Was critical care preformed (if so, how long)? @ -No Undiagnosed new problem with uncertain prognosis? @ -No Drug Therapy requiring intensive monitoring for toxicity (Heparin, Nitro, Insulin, Cardizem)? @ -No Were any procedures done? @ -No Diagnosis/symptom? Acute, or Chronic, or Acute on Chronic? Uncomplicated (without systemic symptoms) or Complicated (systemic symptoms)? @ -Chest pain Side effects of treatment? @ -No Exacerbation, Progression, or Severe Exacerbation? @ -No Poses a threat to life or bodily function? How? (Chest pain, [place], [place], pneumonia, PE, COPD, DKA, ARF, appy, cholecystitis, CVA, Diverticulitis, Homicidal, Suicidal, threat to staff... and all critical care pts) @ -yes - Lab Data Result diagrams: 05/16/24 07:56 05/16/24 07:56 Lab Results 05/16/24 05/16/24 05/16/24 Range/Units 07:56 07:56 07:56 WBC 5.7 (3.8-10.6) k/uL RBC 3.73 L (3.80-5.40) m/uL Hgb 11.3 L (11.4-16.0) gm/dL Hct 34.1 (34.0-46.0) % MCV 91.4 (80.0-100.0) fL MCH 30.3 (25.0-35.0) pg MCHC 33.1 (31.0-37.0) g/dL RDW 14.1 (11.5-15.5) % Plt Count 341 (150-450) k/uL MPV 7.8 Neutrophils % 45 % Lymphocytes % 38 % Monocytes % 7 % Eosinophils % 7 % Basophils % 1 % Neutrophils # 2.6 (1.3-7.7) k/uL Lymphocytes # 2.1 (1.0-4.8) k/uL Monocytes # 0.4 (0-1.0) k/uL Eosinophils # 0.4 (0-0.7) k/uL Basophils # 0.0 (0-0.2) k/uL PT 10.1 (10.0-12.5) sec INR 0.9 (<1.2) APTT 25.4 (22.0-30.0) sec Sodium 136 L (137-145) mmol/L Potassium 4.2 (3.5-5.1) mmol/L Chloride 109 H (98-107) mmol/L Carbon Dioxide 22 (22-30) mmol/L Anion Gap 5 mmol/L BUN 14 (7-17) mg/dL Creatinine 0.68 (0.52-1.04) mg/dL Est GFR (CKD-EPI)AfAm >90 (>60 ml/min/1.73 sqM) Est GFR (CKD-EPI)NonAf 83 (>60 ml/min/1.73 sqM) Glucose 111 H (74-99) mg/dL Calcium 8.8 (8.4-10.2) mg/dL Magnesium 1.6 (1.6-2.3) mg/dL Total Bilirubin 0.7 (0.2-1.3) mg/dL AST 35 (14-36) U/L ALT 19 (4-34) U/L Alkaline Phosphatase 74 (38-126) U/L Troponin I (0.000-0.034) ng/mL Total Protein 5.8 L (6.3-8.2) g/dL Albumin 3.4 L (3.5-5.0) g/dL Lipase (23-300) U/L 05/16/24 05/16/24 Range/Units 07:56 07:58 WBC (3.8-10.6) k/uL RBC (3.80-5.40) m/uL Hgb (11.4-16.0) gm/dL Hct (34.0-46.0) % MCV (80.0-100.0) fL MCH (25.0-35.0) pg MCHC (31.0-37.0) g/dL RDW (11.5-15.5) % Plt Count (150-450) k/uL MPV Neutrophils % % Lymphocytes % % Monocytes % % Eosinophils % % Basophils % % Neutrophils # (1.3-7.7) k/uL Lymphocytes # (1.0-4.8) k/uL Monocytes # (0-1.0) k/uL Eosinophils # (0-0.7) k/uL Basophils # (0-0.2) k/uL PT (10.0-12.5) sec INR (<1.2) APTT (22.0-30.0) sec Sodium (137-145) mmol/L Potassium (3.5-5.1) mmol/L Chloride (98-107) mmol/L Carbon Dioxide (22-30) mmol/L Anion Gap mmol/L BUN (7-17) mg/dL Creatinine (0.52-1.04) mg/dL Est GFR (CKD-EPI)AfAm (>60 ml/min/1.73 sqM) Est GFR (CKD-EPI)NonAf (>60 ml/min/1.73 sqM) Glucose (74-99) mg/dL Calcium (8.4-10.2) mg/dL Magnesium (1.6-2.3) mg/dL Total Bilirubin (0.2-1.3) mg/dL AST (14-36) U/L ALT (4-34) U/L Alkaline Phosphatase (38-126) U/L Troponin I <0.012 (0.000-0.034) ng/mL Total Protein (6.3-8.2) g/dL Albumin (3.5-5.0) g/dL Lipase 101 (23-300) U/L Disposition Clinical Impression: Chest pain Disposition: ADMITTED IP TO THIS [facility] Condition: Fair Referrals: Dimas Catherine DO [Primary Care Provider] - 1-2 days Decision Time: 09:06
[2024-05-16 08:13] LABS: Basophils % (A) 1 %; Eosinophils # (A) 0.4 k/uL (0-0.7); Eosinophils % (A) 7 %; HCT 34.1 % (34.0-46.0); HGB 11.3 gm/dL (11.4-16.0); Lymphocytes # (A) 2.1 k/uL (1.0-4.8); Lymphocytes % (A) 38 %; MCH 30.3 pg (25.0-35.0); MCHC 33.1 g/dL (31.0-37.0); MCV 91.4 fL (80.0-100.0); Mean Platelet Volume 7.8; Monocytes # (A) 0.4 k/uL (0-1.0); Monocytes % (A) 7 %; Neutrophils # (A) 2.6 k/uL (1.3-7.7); Neutrophils % (A) 45 %; Platelet Count 341 k/uL (150-450); RBC 3.73 m/uL (3.80-5.40); RDW 14.1 % (11.5-15.5); WBC 5.7 k/uL (3.8-10.6)
[2024-05-16 08:20] LABS: INR 0.9 (<1.2); Partial Thromboplastin Time 25.4 sec (22.0-30.0); Prothrombin Time 10.1 sec (10.0-12.5)
--- NOTE | 2024-05-16 08:30 | XR ---
EXAMINATION TYPE: XR chest 2V DATE OF EXAM: 05/16/2024 COMPARISON: 10/26/2023 HISTORY: 79-year-old female with chest pain TECHNIQUE: AP and lateral views FINDINGS: Heart upper limits of normal in size. Mild tortuosity thoracic aorta. Mild interstitial prominence. N o consolidation or pleural effusion. IMPRESSION: Borderline heart size and chronic changes. No acute process seen.
[2024-05-16 08:36] LABS: ALT 19 U/L (4-34); AST 35 U/L (14-36); African American GFR (CKD) >90 (>60 ml/min/1.73 sqM); Albumin 3.4 g/dL (3.5-5.0); Alkaline Phosphatase 74 U/L (38-126); Anion Gap 5 mmol/L; Blood Urea Nitrogen 14 mg/dL (7-17); Calcium 8.8 mg/dL (8.4-10.2); Carbon Dioxide 22 mmol/L (22-30); Chloride 109 mmol/L (98-107); Glucose 111 mg/dL (74-99); Magnesium 1.6 mg/dL (1.6-2.3); Non-African American GFR(CKD) 83 (>60 ml/min/1.73 sqM); Potassium 4.2 mmol/L (3.5-5.1); Sodium 136 mmol/L (137-145); Total Bilirubin 0.7 mg/dL (0.2-1.3); Total Protein 5.8 g/dL (6.3-8.2)
[2024-05-16] MEDS ORDERED: NITROGLYCERIN SL TABS 0.4 MG TAB SUBLINGUAL PRN (09:00)
[2024-05-16] MEDS: LOSARTAN 25 MG TAB PO SCH (11:52)
[2024-05-16] MEDS: ASPIRIN 81 MG PO SCH (11:52)
[2024-05-16] MEDS ORDERED: ACETAMINOPHEN TAB 325 MG TAB PO PRN (12:49)
[2024-05-16] MEDS ORDERED: NALOXONE 0.4 MG/ML 1 ML VIAL IV PRN (12:49)
[2024-05-16] MEDS ORDERED: IBUPROFEN 600 MG TAB PO PRN (12:59)
[2024-05-16] MEDS ORDERED: IPRATROPIUM-ALBUTEROL 3 ML NEB INHALATION PRN (12:59)
[2024-05-16] MEDS ORDERED: ALBUTEROL NEBULIZED 2.5 MG/3 ML INHALATION PRN (12:59)
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
--- NOTE | 2024-05-16 13:14 | P.CRDCN ---
History of Present Illness History of present illness: HISTORY OF PRESENT ILLNESS: This is a 79-year-old female with a past medical history significant for asthma, arthritis, and diabetes. Patient used to follow in the office with Dr. Cancino but has not been seen since 2021. We have been asked to see the patient in consultation for chest pain. Patient examined at the bedside. Patient states that she woke up this morning with chest discomfort and mild shortness of breath. She states that she laid in bed for approximately an hour waiting to see if it would go away. She states the pain was across her entire chest. Patient received aspirin when she came to the emergency room. She denies worsening pain with chest wall palpation. She does report mild discomfort with deep inspiration. She states her pain is gone at the time of examination. DIAGNOSTICS: - EKG reveals sinus mechanism with right bundle branch block - Chest xray borderline heart size and chronic changes. No acute process seen. - Laboratory data: WBC 5.7. Hemoglobin 11.3. Platelet count 341. Sodium 136. Potassium 4.2. BUN 14. Creatinine 0.68. Troponin negative x 3 - Current home cardiac medications include aspirin 81 mg daily, losartan 25 mg daily - Most recent echocardiogram obtained in October 2023 revealed EF 55 to 60%, mild MR - Cardiac catheterization history: April [address] Wu revealing normal coronary arteries REVIEW OF SYSTEMS: At the time of my exam: CONSTITUTIONAL: Denies fever or chills. HEENT: Denies blurred vision, vision changes, or eye pain. Denies hemoptysis CARDIOVASCULAR: Denies chest pain. Denies orthopnea. Denies PND. Denies palpitations RESPIRATORY: Denies shortness of breath. GASTROINTESTINAL: Denies abdominal pain. Denies nausea or vomiting. HEMATOLOGIC: Denies bleeding disorders. GENITOURINARY: Denies any blood in urine. SKIN: Denies pruitis. Denies rash. PHYSICAL EXAM: VITAL SIGNS: Reviewed. GENERAL: Well-developed in no acute distress. HEENT: Head is normocephalic. Pupils are equal, round. Sclerae anicteric. Mucous membranes of the mouth are moist. Neck supple. No JVD or thyromegaly LUNGS: Respirations even and unlabored. Lungs essentially clear to auscultation bilaterally. HEART: Regular rate and rhythm. S1 and S2 heard. ABDOMEN: Soft. Nondistended. Nontender. EXTREMITIES: Normal range of motion. No clubbing or cyanosis. Peripheral pulses intact. No lower extremity edema NEUROLOGIC: Awake and alert. Oriented x 3. ASSESSMENT: Chest pain and shortness of breath, troponin negative x 3 Normal coronary arteries, per cardiac catheterization 2020 Diabetes Asthma Arthritis PLAN: An acute coronary event has been ruled out Obtain 2D echo to assess cardiac structure and function Obtain D-dimer Patient may be discharged home this afternoon from a cardiac standpoint pending echocardiogram results Nurse practitioner note has been reviewed by physician. Signing provider agrees with the documented findings, assessment, and plan of care documented by LEAD MINER as a scribe. Past Medical History Past Medical History: Asthma, Cancer, CVA/TIA, Diabetes Mellitus, Eye Disorder, Osteoarthritis (OA) Additional Past Medical History / Comment(s): Hx cervical cancer 30 yrs ago, laser surgery. Diabetic retinopathy. Hx CVA - undiagnosed 2 yrs ago. Poor balance. Hallucinations of "pink and blue dots" x 6months. History of Any Multi-Drug Resistant Organisms: None Reported Past Surgical History: Cholecystectomy, Joint Replacement Additional Past Surgical History / Comment(s): Bilateral knee replacements. Past Anesthesia/Blood Transfusion Reactions: No Reported Reaction Additional Past Anesthesia/Blood Transfusion Reaction / Comment(s): Patient to accept NO blood products at any time per moravian preference. Past Psychological History: No Psychological Hx Reported Smoking Status: Former smoker Past Alcohol Use History: Occasional Past Drug Use History: None Reported - Past Family History Sister(s) Family Medical History: Cancer Additional Family Medical History / Comment(s): Breast cancer. Medications and Allergies Home Medications Medication Instructions Recorded Confirmed Type metFORMIN HCL [Glucophage] 1,000 mg PO BID-W/MEALS 02/26/19 05/16/24 History Budesonide/Formoterol Fumarate 2 puff INHALATION RT-BID 05/19/21 05/16/24 History [Symbicort 160-4.5 Mcg Inhaler] Albuterol Sulfate [Albuterol 2 puff INHALATION RT-Q4H PRN 09/30/23 05/16/24 H istory Sulfate Hfa] Ascorbic Acid [Vitamin C] 1,000 mg PO DAILY 09/30/23 05/16/24 History Calcium Carbonate [Calcium] 600 mg PO SUWE 09/30/23 05/16/24 History Cholecalciferol [Vitamin D3 (25 50 mcg PO DAILY 09/30/23 05/16/24 History Mcg = 1000 Iu)] Dulaglutide [Trulicity] 0.75 mg SQ SA 09/30/23 05/16/24 History Glucagon Emergency Kit 1 mg IM ONCE PRN 09/30/23 05/16/24 History Insulin Glargine,Hum.rec.anlog 10 - 12 units SQ DAILY 09/30/23 05/16/24 History [Lantus Solostar Pen] Ipratropium-Albuterol Nebulize 3 ml INHALATION RT-QID PRN 09/30/23 05/16/24 History [Duoneb 0.5 mg-3 mg/3 ml Soln] Losartan [Cozaar] 25 mg PO DAILY 09/30/23 05/16/24 History Magnesium 250 mg PO HS 09/30/23 05/16/24 History Ibuprofen [Motrin] 600 mg PO DAILY PRN 10/26/23 05/16/24 History Aspirin 81 mg PO DAILY 21 Days #21 tab 10/28/23 05/16/24 Rx Ketoconazole 2% Cream [Nizoral 2%] 1 applic TOPICAL DAILY 05/16/24 05/16/24 History Allergies Allergy/AdvReac Type Severity Reaction Status Date / Time diphenhydramine AdvReac Hallucinati Verified 05/16/24 10:07 [From Divya] ons antihistamines AdvReac Hallucinati Uncoded 05/16/24 07:35 ons Physical Exam Vitals: Vital Signs Temp Pulse Pulse Resp BP Pulse Ox 05/16/24 10:31 77 18 125/91 98 05/16/24 09:06 76 18 124/90 98 05/16/24 08:38 72 18 110/55 95 05/16/24 07:36 71 05/16/24 07:30 98.1 F 71 18 126/71 97 Intake and Output 05/15/24 05/16/24 05/16/24 22:59 06:59 14:59 Other: Weight 62.142 kg Results 05/16/24 07:56 05/16/24 07:56 Cardiac Enzymes 05/16/24 05/16/24 05/16/24 Range/Units 07:56 07:56 09:15 AST 35 (14-36) U/L Troponin I <0.012 <0.012 (0.000-0.034) ng/mL Coagulation 05/16/24 Range/Units 07:56 PT 10.1 (10.0-12.5) sec APTT 25.4 (22.0-30.0) sec CBC 05/16/24 Range/Units 07:56 WBC 5.7 (3.8-10.6) k/uL RBC 3.73 L (3.80-5.40) m/uL Hgb 11.3 L (11.4-16.0) gm/dL Hct 34.1 (34.0-46.0) % Plt Count 341 (150-450) k/uL Comprehensive Metabolic Panel 05/16/24 Range/Units 07:56 Sodium 136 L (137-145) mmol/L Potassium 4.2 (3.5-5.1) mmol/L Chloride 109 H (98-107) mmol/L Carbon Dioxide 22 (22-30) mmol/L BUN 14 (7-17) mg/dL Creatinine 0.68 (0.52-1.04) mg/dL Glucose 111 H (74-99) mg/dL Calcium 8.8 (8.4-10.2) mg/dL AST 35 (14-36) U/L ALT 19 (4-34) U/L Alkaline Phosphatase 74 (38-126) U/L Total Protein 5.8 L (6.3-8.2) g/dL Albumin 3.4 L (3.5-5.0) g/dL Current Medications Generic Name Dose Route Start Last Admin Trade Name Freq PRN Reason Stop Dose Admin Aspirin 325 mg 05/17/24 09:00 Aspirin 325 Mg Tab PO DAILY DAVID Nitroglycerin 0.4 mg 05/16/24 09:00 Nitroglycerin Sl Tabs 0.4 Mg Tab SUBLINGUAL Q5M PRN Chest Pain Intake and Output 05/15/24 05/16/24 05/16/24 22:59 06:59 14:59 Other: Weight 62.142 kg Patient Weight 05/17/24 06:59 Weight 62.142 kg 05/16/24 07:56 05/16/24 07:56
[2024-05-16] MEDS: SYMBICORT 160-4.5 MCG INHALER INHALATION SCH (19:28)
[2024-05-16 20:52] LABS: Glucose,Whole Blood 214 mg/dL (70-110)
[2024-05-16] MEDS: INSULIN ASPART (NovoLOG) 100 UNIT/ML VIAL SQ SCH (21:17)
[2024-05-17 05:33] LABS: Glucose,Whole Blood 106 mg/dL (70-110)
[2024-05-17] MEDS: CHOLECALCIFEROL 25 MCG (1000 IU) TABLET PO SCH (08:16)
[2024-05-17] MEDS ORDERED: ASPIRIN 325 MG TAB PO SCH (09:00)
[2024-05-17 10:26] LABS: Chol/HDL Ratio 2.37 Ratio; LDL Cholesterol,Calculated 98.1 mg/dL (0.0-131.0); VLDL Calculation 13.98 mg/dL (5.00-40.00)
--- NOTE | 2024-05-17 12:10 | P.PN ---
Subjective HISTORY OF PRESENT ILLNESS: This is a 79-year-old female with a past medical history significant for asthma, arthritis, and diabetes. Patient used to follow in the office with Dr. Cancino but has not been seen since 2021. We have been asked to see the patient in consultation for chest pain. Patient examined at the bedside. Patient states that she woke up this morning with chest discomfort and mild shortness of breath. She states that she laid in bed for approximately an hour waiting to see if it would go away. She states the pain was across her entire chest. Patient received aspirin when she came to the emergency room. She denies wo rsening pain with chest wall palpation. She does report mild discomfort with deep inspiration. She states her pain is gone at the time of examination. DIAGNOSTICS: - EKG reveals sinus mechanism with right bundle branch block - Chest xray borderline heart size and chronic changes. No acute process seen. - Laboratory data: WBC 5.7. Hemoglobin 11.3. Platelet count 341. Sodium 136. Potassium 4.2. BUN 14. Creatinine 0.68. Troponin negative x 3 - Current home cardiac medications include aspirin 81 mg daily, losartan 25 mg daily - Most recent echocardiogram obtained in October 2023 revealed EF 55 to 60%, mild MR - Cardiac catheterization history: April [address] Wu revealing normal coronary arteries 05/17/2024 Patient examined this morning at the bedside. Patient reports having a episode of chest discomfort yesterday while lying in bed that lasted for a few minutes and then resolved on its own. She states that she feels short of breath this morning and was unable to take a shower. She does report having a cough this morning. She denies any shortness of breath while at rest in bed. Preliminary echo reveals normal LV systolic function. PHYSICAL EXAM: VITAL SIGNS: Reviewed. GENERAL: Well-developed in no acute distress. HEENT: Head is normocephalic. Pupils are equal, round. Sclerae anicteric. Mucous membranes of the mouth are moist. Neck supple. No JVD or thyromegaly LUNGS: Respirations even and unlabored. Lungs essentially clear to auscultation bilaterally. HEART: Regular rate and rhythm. S1 and S2 heard. ABDOMEN: Soft. Nondistended. Nontender. EXTREMITIES: Normal range of motion. No clubbing or cyanosis. Peripheral pulses intact. No lower extremity edema NEUROLOGIC: Awake and alert. Oriented x 3. ASSESSMENT: Chest pain and shortness of breath, troponin negative x 3 Normal coronary arteries, per cardiac catheterization 2020 Diabetes Asthma Arthritis PLAN: No clear cut evidence that patients symptoms are cardiac in etiology. She denies further CP. Reports mild SOB this morning. Patient does follow with a biomedical engineering director on an outpatient basis and states that she will schedule a follow- up appointment postdischarge. An acute coronary event has been ruled out Continue current cardiac medications Patient is stable for discharge from a cardiac standpoint Nurse practitioner note has been reviewed by physician. Signing provider agrees with the documented findings, assessment, and plan of care documented by ROTO GRAVURE PRESS OPERATOR as a scribe. Objective - Vital Signs Vital signs: Vital Signs Temp 98.1 F 05/17/24 06:44 Pulse 59 L 05/17/24 06:44 Resp 16 05/17/24 06:44 BP 94/55 05/17/24 06:44 Pulse Ox 96 05/17/24 08:31 FiO2 Intake & Output 05/16/24 05/17/24 05/17/24 18:59 06:59 18:59 Weight 62.142 kg 62.142 kg Other: Voiding Method Toilet # Voids 2 - Labs CBC & Chem 7: 05/16/24 07:56 05/16/24 07:56 Labs: Abnormal Lab Results - Last 24 Hours (Table) 05/16/24 05/16/24 Range/Units 11:35 20:51 D-Dimer 0.83 H (<0.60) mg/L FEU POC Glucose (mg/dL) 214 H (70-110) mg/dL
[2024-05-17 12:16] LABS: Glucose,Whole Blood 136 mg/dL (70-110)
--- NOTE | 2024-05-17 12:49 | CA ---
Transthoracic Echo Report Name: Margi Carney Age: 79 Gender: F : 1945 Exam Date: 05/17/2024 08:42 Exam Location: [facility] Ht (in): 59 Wt (lb): 137 Ordering Physician: Laurel Lang Attending/Referring Phys: [id number], Rickey Order Editor Sandra Nino RDCS Procedure CPT: Indications: LV function, CP Cardiac Hx: Technical Quality: Fair Contrast 1: Total Dose (mL): Contrast 2: Total Dose (mL): MEASUREMENTS (Male / Female) Normal Values 2D ECHO LV Diastolic Diameter PLAX 4.0 cm 4.2 - 5.9 / 3.9 - 5.3 cm LV Systolic Diameter PLAX 2.6 cm IVS Diastolic Thickness 1.1 cm 0.6 - 1.0 / 0.6 - 0.9 cm LVPW Diastolic Thickness 1.0 cm 0.6 - 1.0 / 0.6 - 0.9 cm LV Relative Wall Thickness 0.5 RV Internal Dim ED PLAX 2.7 cm LA Systolic Diameter LX 3.5 cm 3.0 - 4.0 / 2.7 - 3.8 cm LV Diastolic Volume MOD BP 38.2 cm??? 67 - 155 / 56 - 104 cm??? LV Systolic Volume MOD BP 15.1 cm??? - / 19 - 49 cm??? LV Ejection Fraction MOD BP 60.4 % >= 55 % LV Cardiac Index MOD BP 1246.8 cm???/min???m??? LV Diastolic Volume MOD 4C 37.2 cm??? LV Systolic Volume MOD 4C 9.6 cm??? LV Ejection Fraction MOD 4C 74.1 % LV Cardiac Index MOD 4C 1491.3 cm???/min???m??? LV Diastolic Length 4C 5.8 cm LV Systolic Length 4C 2.5 cm LV Diastolic Volume MOD 2C 38.1 cm??? LV Systolic Volume MOD 2C 12.5 cm??? LV Ejection Fraction MOD 2C 67.3 % LV Cardiac Index MOD 2C 1382.7 cm???/min???m??? LV Diastolic Length 2C 5.6 cm LV Systolic Length 2C 4.9 cm LA Volume 56.4 cm??? 18 - 58 / 22 - 52 cm??? LA Volume Index 34.6 cm???/m??? 16 - 28 cm???/m??? M-MODE Aortic Root Diameter MM 2.8 cm LA Systolic Diameter MM 3.3 cm LA Ao Ratio MM 1.2 AV Cusp Separation MM 1.6 cm DOPPLER AV Peak Velocity 158.7 cm/s AV Peak Gradient 10.1 mmHg MV Area PHT 2.1 cm??? Mitral E Point Velocity 83.0 cm/s Mitral A Point Velocity 99.7 cm/s Mitral E to A Ratio 0.8 MV Deceleration Time 353.5 ms TR Peak Velocity 266.6 cm/s TR Peak Gradient 28.4 mmHg Right Ventricular Systolic Press 32.9 mmHg FINDINGS Left Ventricle Left ventricular ejection fraction is estimated at 60-65%. Mildly increased septal wall thickness. Mildly increased posterior wall thickness. Left ventricular cavity size normal. No obvious regional wall motion abnormalities. Right Ventricle Normal right ventricular size and function. Right ventricular systolic pressure within normal limits. Right Atrium Mild right atrial dilatation. Left Atrium Moderate left atrial dilatation. Mitral Valve Structurally normal mitral valve. Mild mitral regurgitation. No mitral stenosis. Aortic Valve Trileaflet aortic valve. No aortic stenosis. No aortic regurgitation. Diffuse thickening (sclerosis) of the aortic valve cusps without reduced excursion. Tricuspid Valve Structurally normal tricuspid valve. Moderate tricuspid regurgitation. No tricuspid stenosis. Pulmonic Valve Structurally normal pulmonic valve. Mild pulmonic regurgitation. No pulmonic stenosis. Pericardium No pericardial or pleural effusion. Aorta Normal size aortic root and proximal ascending aorta. CONCLUSIONS Left ventricular ejection fraction 60-65% Mildly increased left ventricular wall thickness RVSP 33 Mild mitral regurgitation Moderate tricuspid regurgitation Previewed by: Dr. George Galicia DO (Electronically Signed) Final Date: 17 May 2024 12:48
--- NOTE | 2024-05-17 14:08 | P.DS ---
Providers Date of admission: 05/16/24 09:00 Expected date of discharge: 05/17/24 Attending physician: Luis Andres MD Consults: 05/16/24 09:00 Consult Physician Routine Consulting Provider: Koko Joyce Consult Reason/Comments: family request, hallucinations, strange behavior Do you want consulting provider notified?: Yes Consult Physician Urgent Consulting Provider: George Galicia Consult Reason/Comments: chest pain Do you want consulting provider notified?: Yes Primary care physician: [facility] Course: 79 year old F with PMH of DM, CVA, Asthma presented to the ED for bilateral chest pain and SOB. In the ED she underwent extensive evaluation. BP 126/71, T 98.1F, RR 18, HR 71, 97% on RA. CBC, Coag panel and CMP significant for RBC 3.73, Hg 11.3, Na 136, Cl 109, glu 111, alb 3.4. Troponins trended serially and negative. She did have a normal cardiac cath in 2020. Cardiology consulted, recommended D-Dimer and Echo. D-Dimer 0.83, slightly elevated but less likely given age-adjusted cut off of 0.8. Echo showed EF 60-65%, mild LV thickness, RVSP 33, mild MR, mod TR. Cardiology recommended no further workup and follow up with Pulmonary to evaluate other causes. 05/17 Patient was seen and examined. No chest pain. No compliants. Plans for discharge home today. Follow up with PCP within 1-2 days of discharge. Resume home medications. General: non toxic, no distress, appears at stated age Derm: warm, dry Head: atraumatic, normocephalic, symmetric Eyes: EOMI, no lid lag, anicteric sclera Mouth: no lip lesion, mucus membranes moist Cardiovascular: S1 S2 regular. Lungs: CTA bilateral, no rhonchi, no rales, no accessory muscle use Ext: no gross muscle atrophy, no edema, no contractures Neuro: no focal neuro deficits Psych: Alert, oriented, appropriate affect Discharge Diagnosis: Chest pain of unclear etiology Diabetes mellitus History of CVA History of Asthma not in acute exacerbation This complex discharge took 35 mintues to complete. Patient Condition at Discharge: Fair Plan - Discharge Summary New Discharge Prescriptions: Continue metFORMIN HCL [Glucophage] 1,000 mg PO BID-W/MEALS Budesonide/Formoterol Fumarate [Symbicort 160-4.5 Mcg Inhaler] 2 puff INHALATION RT-BID Albuterol Sulfate [Albuterol Sulfate Hfa] 2 puff INHALATION RT-Q4H PRN PRN Reason: Shortness Of Breath Losartan [Cozaar] 25 mg PO DAILY Dulaglutide [Trulicity] 0.75 mg SQ SA Calcium Carbonate [Calcium] 600 mg PO SUWE Ascorbic Acid [Vitamin C] 1,000 mg PO DAILY Ketoconazole 2% Cream [Nizoral 2%] 1 applic TOPICAL DAILY Insulin Glargine,Hum.rec.anlog [Lantus Solostar Pen] 10 - 12 units SQ DAILY Ipratropium-Albuterol Nebulize [Duoneb 0.5 mg-3 mg/3 ml Soln] 3 ml INHALATION RT-QID PRN PRN Reason: Shortness Of Breath Glucagon Emergency Kit 1 mg IM ONCE PRN PRN Reason: LOW BLOOD SUGAR Cholecalciferol [Vitamin D3 (25 Mcg = 1000 Iu)] 50 mcg PO DAILY Magnesium 250 mg PO HS Ibuprofen [Motrin] 600 mg PO DAILY PRN PRN Reason: back pain Aspirin 81 mg PO DAILY 21 Days #21 tab Discharge Medication List metFORMIN HCL [Glucophage] 1,000 mg PO BID-W/MEALS 02/26/19 [History] Budesonide/Formoterol Fumarate [Symbicort 160-4.5 Mcg Inhaler] 2 puff INHALATION RT-BID 05/19/21 [History] Albuterol Sulfate [Albuterol Sulfate Hfa] 2 puff INHALATION RT-Q4H PRN 09/30/23 [History] Ascorbic Acid [Vitamin C] 1,000 mg PO DAILY 09/30/23 [History] Calcium Carbonate [Calcium] 600 mg PO SUWE 09/30/23 [History] Cholecalciferol [Vitamin D3 (25 Mcg = 1000 Iu)] 50 mcg PO DAILY 09/30/23 [History] Dulaglutide [Trulicity] 0.75 mg SQ SA 09/30/23 [History] Glucagon Emergency Kit 1 mg IM ONCE PRN 09/30/23 [History] Insulin Glargine,Hum.rec.anlog [Lantus Solostar Pen] 10 - 12 units SQ DAILY 09/30/23 [History] Ipratropium-Albuterol Nebulize [Duoneb 0.5 mg-3 mg/3 ml Soln] 3 ml INHALATION RT-QID PRN 09/30/23 [History] Losartan [Cozaar] 25 mg PO DAILY 09/30/23 [History] Magnesium 250 mg PO HS 09/30/23 [History] Ibuprofen [Motrin] 600 mg PO DAILY PRN 10/26/23 [History] Aspirin 81 mg PO DAILY 21 Days #21 tab 10/28/23 [Rx] Ketoconazole 2% Cream [Nizoral 2%] 1 applic TOPICAL DAILY 05/16/24 [History] Follow up Appointment(s)/Referral(s): Dimas Catherine DO [Primary Care Provider] - 1-2 days Discharge Disposition: HOME SELF-CARE
[2024-05-17 14:27] VITALS: BP 93/60; PULSE 77; RESP 17; TEMP 97.9
[2024-05-18] MEDS ORDERED: CALCIUM CARBONATE 500 MG CHEWABLE PO SCH (09:00)
== END 2024-05-17 13:47 | disposition home or self-care (01) ==
LOC: EC 07:29 → 6NMEDSUR 09:00
PROVIDERS: ADMIT Student in an Organized Health Care Education/Training Program; ATTEND Student in an Organized Health Care Education/Training Program
DX: R07.9 Chest pain, unspecified (principal); R06.02 Shortness of breath; E11.9 Type 2 diabetes mellitus without complications; J45.909 Unspecified asthma, uncomplicated; M19.90 Unspecified osteoarthritis, unspecified site; G47.30 Sleep apnea, unspecified; I10 Essential (primary) hypertension; G89.29 Other chronic pain; M54.9 Dorsalgia, unspecified; Z85.41 Personal history of malignant neoplasm of cervix uteri; Z86.73 Personal history of transient ischemic attack (TIA), and cerebral infarction without residual deficits; Z87.891 Personal history of nicotine dependence; Z79.84 Long term (current) use of oral hypoglycemic drugs; Z79.51 Long term (current) use of inhaled steroids; Z79.899 Other long term (current) drug therapy; Z79.82 Long term (current) use of aspirin; Z79.02 Long term (current) use of antithrombotics/antiplatelets
CPT/HCPCS: 36415; 71046; 80053; 80061; 83690; 83735; 84484; 85025; 85379; 85610; 85730; 93005; 93306; 94640; 94760; 99285

== ENCOUNTER 2024-09-18 08:49 | Observation (INO) | payer MEDICARE, OTHER ==
--- NOTE | 2024-09-18 09:08 | ED ---
General Adult HPI - General Source: patient, RN notes reviewed Mode of arrival: ambulatory Limitations: no limitations <Priyanka Robin - Last Filed: 09/18/24 09:07> - General Source: patient, RN notes reviewed, old records reviewed <Javier Swanson - Last Filed: 09/18/24 12:12> - General Chief complaint: Chest Pain Stated complaint: Chest pain Time Seen by Provider: 09/18/24 09:00 - History of Present Illness Initial comments: Quick note: 79-year-old female presents to the emergency department for evaluation of epigastric pain and shortness of breath that woke her up this morning. She states that this started around 4 AM. (Priyanka Robin) Patient is an 79-year-old female who presents emergency department complaining of chest pain. No significant cardiac history. Started at 4 AM. Was worse earlier and was worse with exertion. Improved at rest. Currently states it is minimal. Describes it as an achy pressure sensation over the lower sternum. Typically does not experience this pain. Does not get worse with movements. Worse with ambulation and activity. Does not seem to be on the chest wall. Denies nausea or vomiting. Denies any diaphoresis. Denies radiation of the pain. Presents for further evaluation at this time. Denies any history of cardiac stents. (Javier Swanson) - Related Data Home Medications Medication Instructions Recorded Confirmed metFORMIN HCL [Glucophage] 1,000 mg PO BID-W/MEALS 02/26/19 05/16/24 Ascorbic Acid [Vitamin C] 1,000 mg PO DAILY 09/30/23 05/16/24 Calcium Carbonate [Calcium] 600 mg PO SUWE 09/30/23 05/16/24 Dulaglutide [Trulicity] 0.75 mg SQ SA 09/30/23 05/16/24 Insulin Glargine,Hum.rec.anlog 10 - 12 units SQ DAILY 09/30/23 05/16/24 [Lantus Solostar Pen] Losartan [Cozaar] 25 mg PO DAILY 09/30/23 05/16/24 Biotin 5,000 mcg PO DAILY 09/18/24 09/18/24 Calcium/Magnesium Supplement 2 tsp PO DAILY 09/18/24 09/18/24 Cholecalciferol (Vitamin D3) 50 mcg PO DAILY 09/18/24 09/18/24 [Vitamin D3 (50 Mcg = 2000 Iu)] Cinnamon Bark [Cinnamon] 1,000 mg PO DAILY 09/18/24 09/18/24 Ubidecarenone [Coenzyme Q10] 200 mg PO DAILY 09/18/24 09/18/24 Zinc Gluconate [Zinc] 50 mg PO DAILY 09/18/24 09/18/24 traMADol HCL 50 mg PO Q8H PRN 09/18/24 09/18/24 Previous Rx's Medication Instructions Recorded Aspirin 81 mg PO DAILY 21 Days #21 tab 10/28/23 Allergies Allergy/AdvReac Type Severity Reaction Status Date / Time diphenhydramine AdvReac Hallucinati Verified 09/18/24 11:26 [From Benadryl] ons antihistamines AdvReac Hallucinati Uncoded 09/18/24 08:57 ons Review of Systems ROS Other: All systems not noted in ROS Statement are negative. <Priyanka Robin - Last Filed: 09/18/24 09:07> ROS Other: All systems not noted in ROS Statement are negative. <Javier Swanson - Last Filed: 09/18/24 12:12> ROS Statement: Those systems with pertinent positive or pertinent negative responses have been documented in the HPI. Review of Systems: CONST: Denies fever EYES: Denies blurry vision ENT: Denies nasal congestion C/V: Endorses chest pain RESP: Denies shortness of breath GI: Denies abdominal pain : Denies dysuria SKIN: Denies rash. MSK: Denies joint pain. NEURO: Denies headache (Javier Swanson) Past Medical History Past Medical History: Asthma, Cancer, CVA/TIA, Diabetes Mellitus, Eye Disorder, Osteoarthritis (OA) Additional Past Medical History / Comment(s): Hx cervical cancer 30 yrs ago, laser surgery. Diabetic retinopathy. Hx CVA - undiagnosed 2 yrs ago. Poor balance. Hallucinations of "pink and blue dots" x 6months. History of Any Multi-Drug Resistant Organisms: None Reported Past Surgical History: Cholecystectomy, Hernia Repair, Joint Replacement Additional Past Surgical History / Comment(s): Bilateral knee replacements. Past Anesthesia/Blood Transfusion Reactions: No Reported Reaction Additional Past Anesthesia/Blood Transfusion Reaction / Comment(s): Patient to accept NO blood products at any time per jainism preference. Past Psychological History: No Psychological Hx Reported Smoking Status: Former smoker Past Alcohol Use History: Occasional Past Drug Use History: None Reported - Past Family History Sister(s) Family Medical History: Cancer Additional Family Medical History / Comment(s): Breast cancer. <Priyanka Robin - Last Filed: 09/18/24 09:07> General Exam Limitations: no limitations <Priyanka Robin - Last Filed: 09/18/24 09:07> <Javier Swanson - Last Filed: 09/18/24 12:12> - General Exam Comments Initial Comments: Visual Physical Exam Vital signs reviewed General: Well-appearing, nontoxic, no acute distress. Head: Normocephalic, atraumatic Eyes: PERRLA, EOMI ENT: Airway patent Chest: Nonlabored breathing Skin: No visual rash, normal skin tone Neuro: Alert and oriented 3 Musculoskeletal: No gross abnormalities (Priyanka Robin) General: Appears in no acute distress. HEAD: Normal with no signs of head trauma. EYES: PERRLA, EOMI, conjunctiva normal, no discharge. ENT: Hearing grossly intact, normal oropharynx. RESPIRATORY: Clear breath sounds bilaterally. No wheezes, rales, or rhonchi. C/V: Regular rate and rhythm. S1 and S2 auscultated, no edema, peripheral pulses 2+ and intact throughout ABD: Abd is soft, nontender, nondistended EXT: No obvious deformity. Chest wall pain not reproducible on palpation. SKIN: No rashes or lesions observed on exposed skin. NEURO: Alert and oriented x 4. (Javier Swanson) Course Vital Signs 09/18/24 09/18/24 08:54 11:10 Temperature 98.1 F Pulse Rate 86 94 Respiratory 20 18 Rate Blood Pressure 112/59 124/72 O2 Sat by Pulse 98 Oximetry Medical Decision Making <Priyanka Robin - Last Filed: 09/18/24 09:07> - Lab Data Result diagrams: 09/18/24 09:10 09/18/24 09:10 - EKG Data -: EKG Interpreted by Me <Javier Swanson - Last Filed: 09/18/24 12:12> - Medical Decision Making Quick note preformed and electronically signed by Priyanka Robin PA-C (Priyanka Robin) Was pt. sent in by a medical professional or institution (LAUREN Corona, YARD SUPERVISOR, urgent care, hospital, or custodial...) When possible be specific @ -No Did you speak to anyone other than the patient for history (EMS, parent, family, police, friend...)? What history was obtained from this source @ -No Did you review nursing and triage notes (agree or disagree)? Why? @ -I reviewed and agree with nursing and triage notes Were old charts reviewed (outside hosp., previous admission, EMS record, old EKG, old radiological studies, urgent care reports/EKG's, custodial records)? Report findings @ -No old charts were reviewed Differential Diagnosis (chest pain, altered mental status, abdominal pain women, abdominal pain men, vaginal bleeding, weakness, fever, dyspnea, syncope, headache, dizziness, GI bleed, back pain, seizure, CVA, palpatations, mental health, musculoskeletal)? @ -Differential Chest Pain: Stable Angina, Unstable Angina, STEMI, NSTEMI Aortic Dissection, Pneumothorax, Musculoskeletal, Esophageal Spasm GERD, Cholecystitis, Pancreatitis, Zoster, this is not meant to be an all-inclusive list. EKG interpreted by me (3pts min.). @ -As above X-rays interpreted by me (1pt min.). @ -Chest x-ray reveals no obvious acute cardiopulmonary process. CT interpreted by me (1pt min.). @ -None done U/S interpreted by me (1pt. min.). @ -None done What testing was considered but not performed or refused? (CT, X-rays, U/S, labs)? Why? @ -None What meds were considered but not given or refused? Why? @ -None Did you discuss the management of the patient with other professionals (professionals i.e. LAUREN Corona, YARD SUPERVISOR, lab, RT, psych nurse, secondary social studies teacher, telegraph mechanic, teacher, chief information officer, human services case manager)? Give summary @ -I spoke with the admitting provider, Dr. Jack of [facility] who accepted the admission. Was smoking cessation discussed for >3mins.? @ -No Was critical care preformed (if so, how long)? @ -No Were there social determinants of health that impacted care today? How? (Homelessness, low income, unemployed, alcoholism, drug addiction, transportation, low edu. Level, literacy, decrease access to med. care, [facility], rehab)? @ -No Was there de-escalation of care discussed even if they declined (Discuss DNR or withdrawal of care, Hospice)? DNR status @ -No What co-morbidities impacted this encounter? (DM, HTN, Smoking, COPD, CAD, Can cer, CVA, ARF, Chemo, Hep., AIDS, mental health diagnosis, sleep apnea, morbid obesity)? @ -None Was patient admitted / discharged? Hospital course, mention meds given and route, prescriptions, significant lab abnormalities, going to OR and other pertinent info. @ -Based on patient's presentation and physical exam, presents emergency department complaining of chest pain. Started this morning. Workup in triage. Labs reveal undetectable troponin and normal lipase. Remainder the labs unremarkable. EKG shows no signs of acute ischemia. Chest x-ray unremarkable. Vitals are within acceptable limits. Patient given 324 mg of aspirin as well as IV fluids and nitroglycerin sublingual. Nitro had no effect on the plane. As patient is having exertional worsening chest discomfort but it is improved at rest, as well as her age I discussed observation admission for cardiology evaluation and she was in agreement this plan. Patient's daughter was also in agreement this plan. Cardiology will be consulted. Echo ordered. I spoke with the admitting provider, Dr. Jack of [facility] who accepted the admission. Undiagnosed new problem with uncertain prognosis? @ -No Drug Therapy requiring intensive monitoring for toxicity (Heparin, Nitro, Insulin, Cardizem)? @ -No Were any procedures done? @ -No Diagnosis/symptom? @ -Chest pain Acute, or Chronic, or Acute on Chronic? @ -Acute Uncomplicated (without systemic symptoms) or Complicated (systemic symptoms)? @ -Complicated Side effects of treatment? @ -No Exacerbation, Progression, or Severe Exacerbation? @ -No Poses a threat to life or bodily function? How? (Chest pain, [place], [place], pneumonia, PE, COPD, DKA, ARF, appy, cholecystitis, CVA, Diverticulitis, Homicidal, Suicidal, threat to staff... and all critical care pts) @ -Potentially, yes (Javier Swanson) - Lab Data Lab Results 09/18/24 09/18/24 09/18/24 Range/Units 09:10 09:10 09:10 WBC 9.1 (3.8-10.6) k/uL RBC 4.01 (3.80-5.40) m/uL Hgb 11.5 (11.4-16.0) gm/dL Hct 34.9 (34.0-46.0) % MCV 87.1 (80.0-100.0) fL MCH 28.8 (25.0-35.0) pg MCHC 33.1 (31.0-37.0) g/dL RDW 14.3 (11.5-15.5) % Plt Count 343 (150-450) k/uL MPV 7.1 Neutrophils % 59 % Lymphocytes % 24 % Monocytes % 6 % Eosinophils % 8 % Basophils % 1 % Neutrophils # 5.4 (1.3-7.7) k/uL Lymphocytes # 2.2 (1.0-4.8) k/uL Monocytes # 0.5 (0-1.0) k/uL Eosinophils # 0.7 (0-0.7) k/uL Basophils # 0.1 (0-0.2) k/uL PT 10.2 (10.0-12.5) sec INR 0.9 (<1.2) APTT 23.2 (22.0-30.0) sec Sodium 138 (137-145) mmol/L Potassium 4.0 (3.5-5.1) mmol/L Chloride 104 (98-107) mmol/L Carbon Dioxide 25 (22-30) mmol/L Anion Gap 9 mmol/L BUN 16 (7-17) mg/dL Creatinine 0.76 (0.52-1.04) mg/dL Est GFR (CKD-EPI)AfAm 86 (>60 ml/min/1.73 sqM) Est GFR (CKD-EPI)NonAf 75 (>60 ml/min/1.73 sqM) Glucose 118 H (74-99) mg/dL Calcium 9.6 (8.4-10.2) mg/dL Magnesium 1.6 (1.6-2.3) mg/dL Total Bilirubin 0.4 (0.2-1.3) mg/dL AST 27 (14-36) U/L ALT 19 (4-34) U/L Alkaline Phosphatase 128 H (38-126) U/L Troponin I (0.000-0.034) ng/mL Total Protein 6.3 (6.3-8.2) g/dL Albumin 4.1 (3.5-5.0) g/dL Lipase (23-300) U/L 09/18/24 09/18/24 Range/Units 09:10 10:27 WBC (3.8-10.6) k/uL RBC (3.80-5.40) m/uL Hgb (11.4-16.0) gm/dL Hct (34.0-46.0) % MCV (80.0-100.0) fL MCH (25.0-35.0) pg MCHC (31.0-37.0) g/dL RDW (11.5-15.5) % Plt Count (150-450) k/uL MPV Neutrophils % % Lymphocytes % % Monocytes % % Eosinophils % % Basophils % % Neutrophils # (1.3-7.7) k/uL Lymphocytes # (1.0-4.8) k/uL Monocytes # (0-1.0) k/uL Eosinophils # (0-0.7) k/uL Basophils # (0-0.2) k/uL PT (10.0-12.5) sec INR (<1.2) APTT (22.0-30.0) sec Sodium (137-145) mmol/L Potassium (3.5-5.1) mmol/L Chloride (98-107) mmol/L Carbon Dioxide (22-30) mmol/L Anion Gap mmol/L BUN (7-17) mg/dL Creatinine (0.52-1.04) mg/dL Est GFR (CKD-EPI)AfAm (>60 ml/min/1.73 sqM) Est GFR (CKD-EPI)NonAf (>60 ml/min/1.73 sqM) Glucose (74-99) mg/dL Calcium (8.4-10.2) mg/dL Magnesium (1.6-2.3) mg/dL Total Bilirubin (0.2-1.3) mg/dL AST (14-36) U/L ALT (4-34) U/L Alkaline Phosphatase (38-126) U/L Troponin I <0.012 (0.000-0.034) ng/mL Total Protein (6.3-8.2) g/dL Albumin (3.5-5.0) g/dL Lipase 108 (23-300) U/L - EKG Data EKG Comments: 12-lead Electrocardiogram Interpretation Note EKG was reviewed and interpreted by myself. 12-lead ECG performed at 0904 is interpreted by me as revealing normal sinus rhythm at a rate of 0904 beats per minute. [place] left axis deviation. [place] interval is 156 ms, QRS durations 134 ms, QTc is 388 ms.. There were no ST or T wave abnormalities to suggest myocardial ischemia or injury. R wave progression across the precordium was satisfactory. By my interpretation this EKG is non-diagnostic for acute ischemia. Compared with EKG from April 2024, with no significant change. (Javier Swanson) Disposition <Priyanka Robin - Last Filed: 09/18/24 09:07> Time of Disposition: 11:35 <Javier Swanson - Last Filed: 09/18/24 12:12> Clinical Impression: Chest pain Disposition: ADMITTED IP TO THIS HOSP Condition: Stable Referrals: Dimas Catherine DO [Primary Care Provider] - 1-2 days
[2024-09-18 09:18] LABS: Basophils # (A) 0.1 k/uL (0-0.2); Basophils % (A) 1 %; Eosinophils # (A) 0.7 k/uL (0-0.7); Eosinophils % (A) 8 %; HCT 34.9 % (34.0-46.0); HGB 11.5 gm/dL (11.4-16.0); Lymphocytes # (A) 2.2 k/uL (1.0-4.8); Lymphocytes % (A) 24 %; MCH 28.8 pg (25.0-35.0); MCHC 33.1 g/dL (31.0-37.0); MCV 87.1 fL (80.0-100.0); Mean Platelet Volume 7.1; Monocytes # (A) 0.5 k/uL (0-1.0); Monocytes % (A) 6 %; Neutrophils # (A) 5.4 k/uL (1.3-7.7); Neutrophils % (A) 59 %; Platelet Count 343 k/uL (150-450); RBC 4.01 m/uL (3.80-5.40); RDW 14.3 % (11.5-15.5); WBC 9.1 k/uL (3.8-10.6)
[2024-09-18 09:31] LABS: ALT 19 U/L (4-34); AST 27 U/L (14-36); African American GFR (CKD) 86 (>60 ml/min/1.73 sqM); Albumin 4.1 g/dL (3.5-5.0); Alkaline Phosphatase 128 U/L (38-126); Anion Gap 9 mmol/L; Blood Urea Nitrogen 16 mg/dL (7-17); Calcium 9.6 mg/dL (8.4-10.2); Carbon Dioxide 25 mmol/L (22-30); Chloride 104 mmol/L (98-107); Glucose 118 mg/dL (74-99); INR 0.9 (<1.2); Magnesium 1.6 mg/dL (1.6-2.3); Non-African American GFR(CKD) 75 (>60 ml/min/1.73 sqM); Partial Thromboplastin Time 23.2 sec (22.0-30.0); Prothrombin Time 10.2 sec (10.0-12.5); Sodium 138 mmol/L (137-145); Total Bilirubin 0.4 mg/dL (0.2-1.3); Total Protein 6.3 g/dL (6.3-8.2)
[2024-09-18] MEDS: ASPIRIN 81 MG PO STA (11:11)
[2024-09-18] MEDS: NITROGLYCERIN SL TABS 0.4 MG TAB SUBLINGUAL STA (11:13)
--- NOTE | 2024-09-18 11:20 | XR ---
EXAMINATION TYPE: XR chest 2V DATE OF EXAM: 09/18/2024 10:40 AM COMPARISON: None CLINICAL INDICATION: Female, 79 years old with history of Chest Pain; [facility] TECHNIQUE: XR chest 2V Frontal and lateral views of the chest. FINDINGS: Lungs/Pleura: There is flattening of the diaphragm with increased lucency of the lungs. No evidence o f pneumothorax, pleural effusion or focal consolidation. Pulmonary vascularity: Unremarkable. Heart/mediastinum: Cardiomediastinal silhouette is unremarkable. Musculoskeletal: No acute osseous pathology. IMPRESSION: 1. No acute cardiopulmonary disease process. 2. COPD changes. [facility], , 09/18/2024 11:17 AM
[2024-09-18] MEDS ORDERED: NALOXONE 0.4 MG/ML 1 ML VIAL IV PRN (11:33)
[2024-09-18] MEDS ORDERED: ONDANSETRON 4 MG/2 ML VIAL IVP PRN (11:33)
[2024-09-18] MEDS: SODIUM CHLORIDE 0.9% 1,000 ML IV STA (11:35)
[2024-09-18] MEDS: MAG HYDROX/AL HYDROX/SIMETH 30 ML, HYOSCYAMINE ELIXIR 10 ML, LIDOCAINE VISCOUS 2% 10 ML PO STA (11:35)
--- NOTE | 2024-09-18 12:36 | P.HPIM ---
History of Present Illness H&P Date: 09/18/24 Chief Complaint: Chest pain 79-year-old woman with a medical history of CVA, HTN, Hyperlipidemia, diabetes who presented for evaluation of chest pain. Patient says that she woke up this morning at 4 in the morning without chest pain started to notice that she had worsening substernal chest pain. Associated symptoms included nausea, shortness of breath. Patient was with her daughter who is her ux visual designer at home, and who insisted on taking patient into the emergency room for further evaluation. Patient denies fevers, chills, sweats, constipation, diarrhea, abdominal pain. In the emergency room, patient was afebrile, 112/59, heart rate 86, 98% on room air. CBC was unremarkable. Basic metabolic panel was unremarkable. Liver function test showed elevated alkaline phosphatase at 128, otherwise unremarkable. Initial troponin was less than 0.012. Lipase was 108. Coags are unremarkable. Chest x-ray shows findings of COPD, otherwise unremarkable. EKG shows sinus rhythm with left axis deviation, left anterior fascicular block and right bundle racheal block, personally interpreted. Patient was admitted for ACS rule out. All Systems reviewed and pertinent positives and negatives noted in HPI, all other symptoms are negative Gen: In NAD, non-toxic HEENT: normocephalic, atraumatic, hearing acuity is intant, mucous membranes moist CVS: perfusing all extremities well, bilateral pitting edema, JVD is present Respiratory: symmetric chest expansion, no accessory muscle use, GI: soft, NTTP, ND, : no suprapubic tenderness, no CVA tenderness MSK/Derm: no rashes, cyanosis Neuro: CN II-XII intact, no motor weakness, Psych: cooperative, euthymic mood, judgment and insight is intact Labs and imaging as above Assessment/plan: Chest pain -Admit to observation, telemetry -Cardiology consulted -Echocardiogram ordered -TSH, A1c, lipid panel -Aspirin, statin, beta-beatrice -Obtain BNP History of CVA -Aspirin as above Hypertension Hyperlipidemia Diabetes type 2 -Home medications reviewed and reconciled Patient is full code Past Medical History Past Medical History: Asthma, Cancer, CVA/TIA, Diabetes Mellitus, Eye Disorder, Osteoarthritis (OA) Additional Past Medical History / Comment(s): Hx cervical cancer 30 yrs ago, laser surgery. Diabetic retinopathy. Hx CVA - undiagnosed 2 yrs ago. Poor balance. Hallucinations of "pink and blue dots" x 6months. History of Any Multi-Drug Resistant Organisms: None Reported Past Surgical History: Cholecystectomy, Hernia Repair, Joint Replacement Additional Past Surgical History / Comment(s): Bilateral knee replacements. Past Anesthesia/Blood Transfusion Reactions: No Reported Reaction Additional Past Anesthesia/Blood Transfusion Reaction / Comment(s): Patient to accept NO blood products at any time per voodoo preference. Past Psychological History: No Psychological Hx Reported Smoking Status: Former smoker Past Alcohol Use History: Occasional Past Drug Use History: None Reported - Past Family History Sister(s) Family Medical History: Cancer Additional Family Medical History / Comment(s): Breast cancer. Medications and Allergies Home Medications Medication Instructions Recorded Confirmed Type metFORMIN HCL [Glucophage] 1,000 mg PO BID-W/MEALS 02/26/19 09/18/24 History Ascorbic Acid [Vitamin C] 1,000 mg PO DAILY 09/30/23 09/18/24 History Calcium Carbonate [Calcium] 600 mg PO DAILY 09/30/23 09/18/24 History Dulaglutide [Trulicity] 0.75 mg SQ TU 09/30/23 09/18/24 History Insulin Glargine,Hum.rec.anlog 10 units SQ DAILY 09/30/23 09/18/24 History [Lantus Solostar Pen] Losartan [Cozaar] 25 mg PO DAILY 09/30/23 09/18/24 History Aspirin 81 mg PO DAILY 21 Days #21 tab 10/28/23 09/18/24 Rx Biotin 5,000 mcg PO DAILY 09/18/24 09/18/24 History Calcium/Magnesium Supplement 2 tsp PO DAILY 09/18/24 09/18/24 History Cholecalciferol (Vitamin D3) 50 mcg PO DAILY 09/18/24 09/18/24 History [Vitamin D3 (50 Mcg = 2000 Iu)] Cinnamon Bark [Cinnamon] 1,000 mg PO DAILY 09/18/24 09/18/24 History Ubidecarenone [Coenzyme Q10] 200 mg PO DAILY 09/18/24 09/18/24 History Zinc Gluconate [Zinc] 50 mg PO DAILY 09/18/24 09/18/24 History traMADol HCL 50 mg PO Q8H PRN 09/18/24 09/18/24 History Allergies Allergy/AdvReac Type Severity Reaction Status Date / Time diphenhydramine AdvReac Hallucinati Verified 09/18/24 11:26 [From Benadryl] ons antihistamines AdvReac Hallucinati Uncoded 09/18/24 08:57 ons Physical Exam Osteopathic Statement: *. No significant issues noted on an osteopathic structural exam other than those noted in the History and Physical/Consult. Vitals: Vital Signs Temp Pulse Resp BP Pulse Ox 09/18/24 11:10 94 18 124/72 09/18/24 08:54 98.1 F 86 20 112/59 98 Intake and Output 09/17/24 09/18/24 09/18/24 22:59 06:59 14:59 Other: Weight 65.317 kg Results CBC & Chem 7: 09/18/24 09:10 09/18/24 09:10 Labs: Abnormal Lab Results - Last 24 Hours (Table) 09/18/24 Range/Units 09:10 Glucose 118 H (74-99) mg/dL Alkaline Phosphatase 128 H (38-126) U/L
[2024-09-18] MEDS: SODIUM CHLORIDE 0.9% 1,000 ML IV SCH (12:50)
--- NOTE | 2024-09-18 14:00 | P.CRDCN ---
History of Present Illness History of present illness: HISTORY OF PRESENT ILLNESS: This is a 79-year-old female with a past medical history significant for CVA, hypertension, hyperlipidemia with statin intolerance, and diabetes. Patient follows in the office with Dr. Cancino. We have been asked to see the patient in consultation for chest pain. Patient examined at the bedside in the emergency room. Patient presented to the hospital for chief complaint of chest pain. Patient states the pain was in the middle of her chest and radiated into her shoulder. She denies any shortness of breath. At the time of examination she denies any chest pain. DIAGNOSTICS: - EKG reveals sinus mechanism with right bundle branch block - Chest xray negative for acute process. COPD changes. - Laboratory data: WBC 9.1. Hemoglobin 11.5. Platelet count 343. Sodium 138. Potassium 4.0. BUN 16. Creatinine 0.76. Magnesium 1.6. Troponin negative x 1. TSH 0.635. - Current home cardiac medications include losartan 25 mg daily and aspirin 81 mg daily - Most recent echocardiogram obtained in April 2024 revealing ejection fraction 60 to 65% with mild MR and moderate TR - Cardiac catheterization history: 2020 revealing normal coronary arteries REVIEW OF SYSTEMS: At the time of my exam: CONSTITUTIONAL: Denies fever or chills. HEENT: Denies blurred vision, vision changes, or eye pain. Denies hemoptysis CARDIOVASCULAR: Denies chest pain. Denies orthopnea. Denies PND. Denies palpitations RESPIRATORY: Denies shortness of breath. GASTROINTESTINAL: Denies abdominal pain. Denies nausea or vomiting. HEMATOLOGIC: Denies bleeding disorders. GENITOURINARY: Denies any blood in urine. SKIN: Denies pruitis. Denies rash. PHYSICAL EXAM: VITAL SIGNS: Reviewed. GENERAL: Well-developed in no acute distress. HEENT: Head is normocephalic. Pupils are equal, round. Sclerae anicteric. Mucous membranes of the mouth are moist. Neck supple. No JVD or thyromegaly LUNGS: Respirations even and unlabored. Lungs essentially clear to auscultation bilaterally. HEART: Regular rate and rhythm. S1 and S2 heard. ABDOMEN: Soft. Nondistended. Nontender. EXTREMITIES: Normal range of motion. No clubbing or cyanosis. Peripheral pulses intact. No lower extremity edema NEUROLOGIC: Awake and alert. Oriented x 3. ASSESSMENT: Chest pain, troponin negative x 1 Normal coronary arteries, per cardiac catheterization 2020 Hypertension Hyperlipidemia with statin intolerance Diabetes History of CVA PLAN: Trend troponins Obtain 2D echo to assess cardiac structure and function Hold beta-beatrice due to possible stress testing tomorrow N.p.o. at midnight Possible stress test versus cardiac catheterization tomorrow pending trend of troponins Further recommendations pending patient course Nurse practitioner note has been reviewed by physician. Signing provider agrees with the documented findings, assessment, and plan of care documented by FIELD SERVICE CONSULTANT as a scribe. Past Medical History Past Medical History: Asthma, Cancer, CVA/TIA, Diabetes Mellitus, Eye Disorder, Osteoarthritis (OA) Additional Past Medical History / Comment(s): Hx cervical cancer 30 yrs ago, laser surgery. Diabetic retinopathy. Hx CVA - undiagnosed 2 yrs ago. Poor balance. Hallucinations of "pink and blue dots" x 6months. History of Any Multi-Drug Resistant Organisms: None Reported Past Surgical History: Cholecystectomy, Hernia Repair, Joint Replacement Additional Past Surgical History / Comment(s): Bilateral knee replacements. Past Anesthesia/Blood Transfusion Reactions: No Reported Reaction Additional Past Anesthesia/Blood Transfusion Reaction / Comment(s): Patient to accept NO blood products at any time per congregation preference. Past Psychological History: No Psychological Hx Reported Smoking Status: Former smoker Past Alcohol Use History: Occasional Past Drug Use History: None Reported - Past Family History Sister(s) Family Medical History: Cancer Additional Family Medical History / Comment(s): Breast cancer. Medications and Allergies Home Medications Medication Instructions Recorded Confirmed Type metFORMIN HCL [Glucophage] 1,000 mg PO BID-W/MEALS 02/26/19 09/18/24 History Ascorbic Acid [Vitamin C] 1,000 mg PO DAILY 09/30/23 09/18/24 History Calcium Carbonate [Calcium] 600 mg PO DAILY 09/30/23 09/18/24 History Dulaglutide [Trulicity] 0.75 mg SQ TU 09/30/23 09/18/24 History Insulin Glargine,Hum.rec.anlog 10 units SQ DAILY 09/30/23 09/18/24 History [Lantus Solostar Pen] Losartan [Cozaar] 25 mg PO DAILY 09/30/23 09/18/24 History Aspirin 81 mg PO DAILY 21 Days #21 tab 10/28/23 09/18/24 Rx Biotin 5,000 mcg PO DAILY 09/18/24 09/18/24 History Calcium/Magnesium Supplement 2 tsp PO DAILY 09/18/24 09/18/24 History Cholecalciferol (Vitamin D3) 50 mcg PO DAILY 09/18/24 09/18/24 History [Vitamin D3 (50 Mcg = 2000 Iu)] Cinnamon Bark [Cinnamon] 1,000 mg PO DAILY 09/18/24 09/18/24 History Ubidecarenone [Coenzyme Q10] 200 mg PO DAILY 09/18/24 09/18/24 History Zinc Gluconate [Zinc] 50 mg PO DAILY 09/18/24 09/18/24 History traMADol HCL 50 mg PO Q8H PRN 09/18/24 09/18/24 History Allergies Allergy/AdvReac Type Severity Reaction Status Date / Time diphenhydramine AdvReac Hallucinati Verified 09/18/24 11:26 [From Olival] ons antihistamines AdvReac Hallucinati Uncoded 09/18/24 08:57 ons Physical Exam Vitals: Vital Signs Temp Pulse Resp BP Pulse Ox 09/18/24 12:40 91 16 124/74 96 09/18/24 11:10 94 18 124/72 09/18/24 08:54 98.1 F 86 20 112/59 98 Intake and Output 09/17/24 09/18/24 09/18/24 22:59 06:59 14:59 Other: Weight 65.317 kg Results 09/18/24 09:10 09/18/24 09:10 Cardiac Enzymes 09/18/24 09/18/24 09/18/24 Range/Units 09:10 09:10 12:50 AST 27 (14-36) U/L Troponin I <0.012 <0.012 (0.000-0.034) ng/mL Coagulation 09/18/24 Range/Units 09:10 PT 10.2 (10.0-12.5) sec APTT 23.2 (22.0-30.0) sec CBC 09/18/24 Range/Units 09:10 WBC 9.1 (3.8-10.6) k/uL RBC 4.01 (3.80-5.40) m/uL Hgb 11.5 (11.4-16.0) gm/dL Hct 34.9 (34.0-46.0) % Plt Count 343 (150-450) k/uL Comprehensive Metabolic Panel 09/18/24 Range/Units 09:10 Sodium 138 (137-145) mmol/L Potassium 4.0 (3.5-5.1) mmol/L Chloride 104 (98-107) mmol/L Carbon Dioxide 25 (22-30) mmol/L BUN 16 (7-17) mg/dL Creatinine 0.76 (0.52-1.04) mg/dL Glucose 118 H (74-99) mg/dL Calcium 9.6 (8.4-10.2) mg/dL AST 27 (14-36) U/L ALT 19 (4-34) U/L Alkaline Phosphatase 128 H (38-126) U/L Total Protein 6.3 (6.3-8.2) g/dL Albumin 4.1 (3.5-5.0) g/dL Current Medications Generic Name Dose Route Start Last Admin Trade Name Freq PRN Reason Stop Dose Admin Ascorbic Acid 1,000 mg 09/19/24 09:00 Ascorbic Acid 500 Mg Tab PO DAILY DAVID Aspirin 81 mg 09/19/24 09:00 Aspirin 81 Mg PO DAILY DAVID Atorvastatin Calcium 80 mg 09/18/24 21:00 Atorvastatin 80 Mg Tab PO HS DAVID Heparin Sodium (Porcine) 5,000 unit 09/18/24 21:00 Heparin Sodium,Porcine 5,000 Unit/Ml 1 Ml Vial SQ Q12HR [facility] Sodium Chloride 1,000 mls @ 75 mls/hr 09/18/24 11:45 09/18/24 12:50 Saline 0.9% IV 75 mls/hr .[id number] DAVID Administration Insulin Detemir 10 unit 09/19/24 07:00 Insulin Detemir (Levemir) 100 Unit/Ml Syr SQ DAILY@0700 [facility] Losartan Potassium 25 mg 09/19/24 09:00 Losartan 25 Mg Tab PO DAILY [facility] Metoprolol Tartrate 12.5 mg 09/18/24 21:00 Metoprolol Tartrate 12.5 Mg Tab PO BID DAVID Naloxone HCl 0.2 mg 09/18/24 11:33 Naloxone 0.4 Mg/Ml 1 Ml Vial IV Q2M PRN Opioid Reversal Ondansetron HCl 4 mg 09/18/24 11:33 Ondansetron 4 Mg/2 Ml Vial IVP Q8HR PRN Nausea And Vomiting Tramadol HCl 50 mg 09/18/24 12:12 Tramadol 50 Mg Tab PO Q8H PRN Pain Intake and Output 09/17/24 09/18/24 09/18/24 22:59 06:59 14:59 Other: Weight 65.317 kg Patient Weight 09/19/24 06:59 Weight 65.317 kg 09/18/24 09:10 09/18/24 09:10
[2024-09-18] MEDS ORDERED: metFORMIN 500 MG TAB PO SCH (17:30)
[2024-09-18] MEDS: ATORVASTATIN 80 MG TAB PO SCH (20:06)
[2024-09-18] MEDS: HEPARIN SODIUM,PORCINE 5,000 UNIT/ML 1 ML VIAL SQ SCH (20:06)
[2024-09-18] MEDS ORDERED: METOPROLOL TARTRATE 12.5 MG TAB PO SCH (21:00)
[2024-09-18] MEDS: traMADol 50 MG TAB PO PRN (22:58)
[2024-09-19 06:45] LABS: Glucose,Whole Blood 108 mg/dL (70-110)
[2024-09-19 09:00] LABS: ALT 16 U/L (8-44); AST 22 U/L (13-35); Albumin 3.9 g/dL (3.8-4.9); Albumin/Globulin Ratio 2.05 Ratio (1.60-3.17); Alkaline Phosphatase 115 U/L (41-126); BUN/Creat Ratio 14.86 Ratio (12.00-20.00); Blood Urea Nitrogen 10.4 mg/dL (9.0-27.0); Calcium 9.1 mg/dL (8.7-10.3); Chloride 106 mmol/L (96-109); Chol/HDL Ratio 2.32 Ratio; Globulin 1.9 g/dL (1.6-3.3); Glucose 106 mg/dL (70-110); LDL Cholesterol,Calculated 62.7 mg/dL (0.0-131.0); Potassium 4.4 mmol/L (3.5-5.5); Sodium 141 mmol/L (135-145); Total Bilirubin 0.4 mg/dL (0.3-1.2); Total Protein 5.8 g/dL (6.2-8.2)
[2024-09-19] MEDS: ASCORBIC ACID 500 MG TAB PO SCH (09:09)
[2024-09-19] MEDS: LOSARTAN 25 MG TAB PO SCH (09:10)
[2024-09-19] MEDS: ASPIRIN 81 MG PO SCH (09:10)
[2024-09-19 09:26] LABS: Basophils % (A) 1.3 %; Eosinophils # (A) 0.77 X 10*3/uL (0.04-0.35); HCT 34.8 % (37.2-46.3); HGB 11.2 g/dL (12.0-15.0); Lymphocytes # (A) 2.86 X 10*3/uL (0.90-5.00); Lymphocytes % (A) 37.3 %; MCHC 32.2 g/dL (32.0-37.0); Mean Platelet Volume 9.7 FL (9.5-12.2); Monocytes # (A) 0.64 X 10*3/uL (0.20-1.00); Monocytes % (A) 8.3 %; NRBC Per 100 WBC 0 X 10*3/uL (0.00-0.01); Neutrophils # (A) 3.28 X 10*3/uL (1.80-7.70); Neutrophils % (A) 42.8 %; Platelet Count 316 X 10*3/uL (140-440); RDW 14.6 % (11.5-14.5); WBC 7.67 X 10*3/uL (4.50-10.00)
[2024-09-19] MEDS ORDERED: AMINOPHYLLINE 500 MG/20 ML VIAL IV PRN (10:41)
[2024-09-19] MEDS ORDERED: REGADENOSON 0.4 MG/5 ML SYRINGE IV PRN (10:41)
[2024-09-19] MEDS ORDERED: CAFFEINE CITRATE 60 MG/3 ML VIAL IV PRN (10:41)
[2024-09-19] MEDS: ACETAMINOPHEN TAB 325 MG TAB PO PRN (11:43)
[2024-09-19 13:25] LABS: Glucose,Whole Blood 163 mg/dL (70-110)
--- NOTE | 2024-09-19 13:26 | P.PN ---
Subjective HISTORY OF PRESENT ILLNESS: This is a 79-year-old female with a past medical history significant for CVA, hypertension, hyperlipidemia with statin intolerance, and diabetes. Patient follows in the office with Dr. Cancino. We have been asked to see the patient in consultation for chest pain. Patient examined at the bedside in the emergency room. Patient presented to the hospital for chief complaint of chest pain. Patient states the pain was in the middle of her chest and radiated into her shoulder. She denies any shortness of breath. At the time of examination she denies any chest pain. DIAGNOSTICS: - EKG reveals sinus mechanism with right bundle branch block - Chest xray negative for acute process. COPD changes. - Laboratory data: WBC 9.1. Hemoglobin 11.5. Platelet count 343. Sodium 138. Potassium 4.0. BUN 16. Creatinine 0.76. Magnesium 1.6. Troponin negative x 1. TSH 0.635. - Current home cardiac medications include losartan 25 mg daily and aspirin 81 mg daily - Most recent echocardiogram obtained in April 2024 revealing ejection fraction 60 to 65% with mild MR and moderate TR - Cardiac catheterization history: 2020 revealing normal coronary arteries 09/19/2024 Patient examined this morning at the bedside. Patient currently denies shortness of breath. She denies cough. Denies dizziness or lightheadedness. She denies chest pain at the time of examination. PHYSICAL EXAM: VITAL SIGNS: Reviewed. GENERAL: Well-developed in no acute distress. HEENT: Head is normocephalic. Pupils are equal, round. Sclerae anicteric. Mucous membranes of the mouth are moist. Neck supple. No JVD or thyromegaly LUNGS: Respirations even and unlabored. Lungs essentially clear to auscultation bilaterally. HEART: Regular rate and rhythm. S1 and S2 heard. ABDOMEN: Soft. Nondistended. Nontender. EXTREMITIES: Normal range of motion. No clubbing or cyanosis. Peripheral pulses intact. No lower extremity edema NEUROLOGIC: Awake and alert. Oriented x 3. ASSESSMENT: Chest pain, troponin negative x 2 Normal coronary arteries, per cardiac catheterization 2020 Hypertension Hyperlipidemia with statin intolerance Diabetes History of CVA PLAN: 2D echo ordered. Await results Continue current cardiac medications Patient to undergo Lexiscan stress test today If negative, she may be discharged home from a cardiac standpoint Nurse practitioner note has been reviewed by physician. Signing provider agrees with the documented findings, assessment, and plan of care documented by STEAM CLEANER as a scribe. Objective - Vital Signs Vital signs: Vital Signs Temp 98.4 F 09/19/24 07:00 Pulse 63 09/19/24 07:00 Resp 16 09/19/24 07:00 BP 118/67 09/19/24 07:00 Pulse Ox 97 09/19/24 07:00 FiO2 Intake & Output 09/18/24 09/19/24 09/19/24 18:59 06:59 18:59 Weight 65.317 kg 65.317 kg Other: Voiding Method Toilet - Labs CBC & Chem 7: 09/19/24 06:04 09/19/24 06:04 Labs: Abnormal Lab Results - Last 24 Hours (Table) 09/18/24 09/19/24 09/19/24 Range/Units 12:41 06:04 06:04 RBC 4.00 L (4.10-5.20) X 10*6/uL Hgb 11.2 L (12.0-15.0) g/dL Hct 34.8 L (37.2-46.3) % RDW 14.6 H (11.5-14.5) % Eosinophils # 0.77 H (0.04-0.35) X 10*3/uL Hemoglobin A1c 6.9 H (<=6.0) % Total Protein 5.8 L (6.2-8.2) g/dL HDL Cholesterol 69.50 H (40.00-60.00) mg/dL
[2024-09-19] MEDS: INSULIN DETEMIR (LEVEMIR) 100 UNIT/ML SYR SQ SCH (13:52)
--- NOTE | 2024-09-19 16:44 | P.PN ---
Subjective Progress Note Date: 09/19/24 No new complaints today. Awaiting results of lexiscan stress test prior to discharge. Gen: In NAD, non-toxic HEENT: normocephalic, atraumatic, hearing acuity is intant, mucous membranes moist CVS: perfusing all extremities well, bilateral pitting edema, JVD is present Respiratory: symmetric chest expansion, no accessory muscle use, GI: soft, NTTP, ND, : no suprapubic tenderness, no CVA tenderness MSK/Derm: no rashes, cyanosis Neuro: CN II-XII intact, no motor weakness, Psych: cooperative, euthymic mood, judgment and insight is intact Hospital Course: 79-year-old woman with a medical history of CVA, HTN, Hyperlipidemia, diabetes who presented for evaluation of chest pain. In the emergency room, patient was afebrile, 112/59, heart rate 86, 98% on room air. CBC was unremarkable. Basic metabolic panel was unremarkable. Liver function test showed elevated alkaline phosphatase at 128, otherwise unremarkable. Initial troponin was less than 0.012. Lipase was 108. Coags are unremarkable. Chest x-ray shows findings of COPD, otherwise unremarkable. EKG shows sinus rhythm with left axis deviation, left anterior fascicular block and right bundle racheal block, personally interpreted. Patient was admitted for ACS rule out. Assessment/plan: Chest pain -Admit to observation, telemetry -Cardiology consulted -Echocardiogram ordered -TSH, A1c, lipid panel -Aspirin, statin, beta-beatrice -Obtain BNP -Pending results of lexiscan stress test History of CVA -Aspirin as above Hypertension Hyperlipidemia Diabetes type 2 -Home medications reviewed and reconciled Patient is full code Objective - Vital Signs Vital signs: Vital Signs Temp 97.8 F 09/19/24 14:53 Pulse 78 09/19/24 14:53 Resp 16 09/19/24 14:53 BP 112/56 09/19/24 14:53 Pulse Ox 97 09/19/24 14:53 FiO2 Intake & Output 09/18/24 09/19/24 09/19/24 18:59 06:59 18:59 Weight 65.317 kg 65.317 kg Other: Voiding Method Toilet # Voids 2 - Labs CBC & Chem 7: 09/19/24 06:04 09/19/24 06:04 Labs: Abnormal Lab Results - Last 24 Hours (Table) 09/18/24 09/19/24 09/19/24 Range/Units 12:41 06:04 06:04 RBC 4.00 L (4.10-5.20) X 10*6/uL Hgb 11.2 L (12.0-15.0) g/dL Hct 34.8 L (37.2-46.3) % RDW 14.6 H (11.5-14.5) % Eosinophils # 0.77 H (0.04-0.35) X 10*3/uL POC Glucose (mg/dL) (70-110) mg/dL Hemoglobin A1c 6.9 H (<=6.0) % Total Protein 5.8 L (6.2-8.2) g/dL HDL Cholesterol 69.50 H (40.00-60.00) mg/dL 09/19/24 Range/Units 13:23 RBC (4.10-5.20) X 10*6/uL Hgb (12.0-15.0) g/dL Hct (37.2-46.3) % RDW (11.5-14.5) % Eosinophils # (0.04-0.35) X 10*3/uL POC Glucose (mg/dL) 163 H (70-110) mg/dL Hemoglobin A1c (<=6.0) % Total Protein (6.2-8.2) g/dL HDL Cholesterol (40.00-60.00) mg/dL
[2024-09-19 17:18] LABS: Glucose,Whole Blood 102 mg/dL (70-110)
[2024-09-19 20:19] LABS: Glucose,Whole Blood 125 mg/dL (70-110)
[2024-09-20 05:59] LABS: Glucose,Whole Blood 89 mg/dL (70-110)
--- NOTE | 2024-09-20 07:07 | NM ---
EXAMINATION TYPE: NM stress lexiscan cardiolite DATE OF EXAM: 09/19/2024 COMPARISON: NONE HISTORY: Chest pain TECHNIQUE: After the intravenous administration of 8.1 mCi Tc 99m Sestamibi - Cardiolite resting SPE CT images acquired 45 minutes post injection. At peak stress 21.9 mCi Tc 99m Sestamibi - Stress images obtained 30 minutes post injection The patient was stressed with 0.4mg Lexiscan. FINDINGS: No fixed defects are evident No reversible stress defects on Spect images There is dyskinesia of the inferior wall near the cardiac apex. Some dyskinesia at the cardiac apex i s also present. Global hypokinesia is present. Ejection fraction is calculated to be 46 %. Which is low. Normal greater than 50%. IMPRESSION: 1. No stress-induced ischemic change identified. 2. There is a low ejection fraction of 46% with global hypokinesia. Some dyskinesia at the cardiac ap ex and distal inferior wall is present. [facility], , 09/20/2024 7:04 AM
[2024-09-20 07:58] VITALS: RESP 17
--- NOTE | 2024-09-20 07:59 | CA ---
Lexiscan Nuclear Stress Test Report Name: Margi Carney Exam Date: 09/19/2024 12:13 Exam Location: [place] Stress Ht (in): 59 Wt (lb): 144 BSA: 1.60 Ordering Phys: Laurel Lang Referring Phys: DEREK Technologist: Glen Meehan Age: 79 Gender: F : 1945 Procedure CPT: Indications: Reflex order-Stress test ICD-10 Codes: Patient History: CHEST PAIN, DIFFICULTY IN BREATHING, DIABETIC, PRIOR STROKE, HYPERCHOLESTEROLEMIA, PRIOR SMOKER, PRIOR HEART CATH, ASTHMA Medications: Meds past 24 hrs: Pretest Chest Pain: STRESS TEST Lexiscan Protocol Exercise Duration (min:sec): 02:[address] Depressions (mm): Angina Score: Zafar Score: Resting HR (bpm): 62 Peak HR (bpm): 99 Resting BP (mmHg): 117 / 67 Peak BP (mmHg): 117 / 67 MPHR: 140 Target HR: 119 % MPHR: 71 METS: 1.0 Total Dose: Peak Dose: Atropine: Double Product: 56009 BP Response: Stress Termination: INFUSION COMPLETE Stress Symptoms: NO SYMPTOMS Stress Summary: ECG ANALYSIS Resting ECG: Stress ECG: CONCLUSIONS Nondiagnostic stress test Dr. Mani Wu MD (Electronically Signed) Final Date: 20 September 2024 07:58
--- NOTE | 2024-09-20 08:01 | CA ---
Transthoracic Echo Report Name: Margi Carney Age: 79 Gender: F : 1945 Exam Date: 09/19/2024 14:15 Exam Location: [place] [facility] Ht (in): 59 Wt (lb): 144 Ordering Physician: Javier Swanson MD Attending/Referring Phys: Story Reader Sandra Nino RDCS Procedure CPT: Indications: Chest Pain Cardiac Hx: Technical Quality: Fair Contrast 1: Total Dose (mL): Contrast 2: Total Dose (mL): MEASUREMENTS (Male / Female) Normal Values 2D ECHO LV Diastolic Diameter PLAX 3.3 cm 4.2 - 5.9 / 3.9 - 5.3 cm LV Systolic Diameter PLAX 2.2 cm IVS Diastolic Thickness 1.3 cm 0.6 - 1.0 / 0.6 - 0.9 cm LVPW Diastolic Thickness 1.2 cm 0.6 - 1.0 / 0.6 - 0.9 cm LV Relative Wall Thickness 0.8 RV Internal Dim ED PLAX 2.4 cm LA Systolic Diameter LX 3.9 cm 3.0 - 4.0 / 2.7 - 3.8 cm LV Diastolic Volume MOD BP 40.0 cm??? 67 - 155 / 56 - 104 cm??? LV Systolic Volume MOD BP 13.4 cm??? 22 - 58 / 19 - 49 cm??? LV Ejection Fraction MOD BP 66.4 % >= 55 % LV Cardiac Index MOD BP 1523.7 cm???/min???m??? LV Diastolic Volume MOD 4C 42.0 cm??? LV Systolic Volume MOD 4C 15.6 cm??? LV Ejection Fraction MOD 4C 63.0 % LV Cardiac Index MOD 4C 1519.2 cm???/min???m??? LV Diastolic Length 4C 5.9 cm LV Systolic Length 4C 4.9 cm LV Diastolic Volume MOD 2C 37.4 cm??? LV Systolic Volume MOD 2C 11.9 cm??? LV Ejection Fraction MOD 2C 68.2 % LV Cardiac Index MOD 2C 1461.4 cm???/min???m??? LV Diastolic Length 2C 6.0 cm LV Systolic Length 2C 4.8 cm M-MODE Aortic Root Diameter MM 3.6 cm LA Systolic Diameter MM 3.8 cm LA Ao Ratio MM 1.1 AV Cusp Separation MM 1.7 cm FINDINGS Left Ventricle Left ventricular ejection fraction is estimated at 50 %. Moderately increased septal wall thickness. Mildly increased posterior wall thickness. No obvious regional wall motion abnormalities. Left ventricular cavity size normal. Right Ventricle Normal right ventricular size and function. Right Atrium Mild right atrial dilatation. Left Atrium Mildly increased left atrial diameter. Mitral Valve Structurally normal mitral valve. Aortic Valve Tricuspid Valve Pulmonic Valve Pericardium Aorta Normal size aortic root and proximal ascending aorta. CONCLUSIONS Limited echocardiogram Low normal LV systolic function Previewed by: Dr. Mani Wu MD (Electronically Signed) Final Date: 20 September 2024 08:00
[2024-09-20 08:47] LABS: Glucose,Whole Blood 106 mg/dL (70-110)
--- NOTE | 2024-09-20 11:54 | P.PN ---
Subjective HISTORY OF PRESENT ILLNESS: This is a 79-year-old female with a past medical history significant for CVA, hypertension, hyperlipidemia with statin intolerance, and diabetes. Patient follows in the office with Dr. Cancino. We have been asked to see the patient in consultation for chest pain. Patient examined at the bedside in the emergency room. Patient presented to the hospital for chief complaint of chest pain. Patient states the pain was in the middle of her chest and radiated into her shoulder. She denies any shortness of breath. At the time of examination she denies any chest pain. DIAGNOSTICS: - EKG reveals sinus mechanism with right bundle branch block - Chest xray negative for acute process. COPD changes. - Laboratory data: WBC 9.1. Hemoglobin 11.5. Platelet count 343. Sodium 138. Potassium 4.0. BUN 16. Creatinine 0.76. Magnesium 1.6. Troponin negative x 1. TSH 0.635. - Current home cardiac medications include losartan 25 mg daily and aspirin 81 mg daily - Most recent echocardiogram obtained in April 2024 revealing ejection fraction 60 to 65% with mild MR and moderate TR - Cardiac catheterization history: 2020 revealing normal coronary arteries 09/19/2024 Patient examined this morning at the bedside. Patient currently denies shortness of breath. She denies cough. Denies dizziness or lightheadedness. She denies chest pain at the time of examination. 09/20/2024 Patient examined this morning the bedside. Patient underwent Lexiscan stress test yesterday with no evidence of stress-induced ischemic changes. Patient currently denies any chest pain or pressure. She denies any shortness of breat h. Vital signs are stable. Echocardiogram completed revealing ejection fraction 50%. PHYSICAL EXAM: VITAL SIGNS: Reviewed. GENERAL: Well-developed in no acute distress. HEENT: Head is normocephalic. Pupils are equal, round. Sclerae anicteric. Mucous membranes of the mouth are moist. Neck supple. No JVD or thyromegaly LUNGS: Respirations even and unlabored. Lungs essentially clear to auscultation bilaterally. HEART: Regular rate and rhythm. S1 and S2 heard. ABDOMEN: Soft. Nondistended. Nontender. EXTREMITIES: Normal range of motion. No clubbing or cyanosis. Peripheral pulses intact. No lower extremity edema NEUROLOGIC: Awake and alert. Oriented x 3. ASSESSMENT: Chest pain, troponin negative x 2 Normal coronary arteries, per cardiac catheterization 2020 Hypertension Hyperlipidemia with statin intolerance Diabetes History of CVA PLAN: Continue current cardiac medications Patient is stable for discharge home today from a cardiac standpoint Patient to follow-up postdischarge with Dr. Cancino We will sign off. Please reconsult if needed. Nurse practitioner note has been reviewed by physician. Signing provider agrees with the documented findings, assessment, and plan of care documented by LEHR OPERATOR as a scribe. Objective - Vital Signs Vital signs: Vital Signs Temp 97.0 F L 09/20/24 07:00 Pulse 65 09/20/24 07:00 Resp 17 09/20/24 07:00 BP 102/66 09/20/24 07:00 Pulse Ox 95 09/20/24 07:00 FiO2 Intake & Output 09/19/24 09/20/24 09/20/24 18:59 06:59 18:59 Intake Total 221 Balance 221 Intake: Oral 221 Other: Voiding Method Toilet Toilet # Voids 4 3 - Labs CBC & Chem 7: 09/19/24 06:04 09/19/24 06:04 Labs: Abnormal Lab Results - Last 24 Hours (Table) 09/19/24 09/19/24 Range/Units 13:23 20:18 POC Glucose (mg/dL) 163 H 125 H (70-110) mg/dL
[2024-09-20 12:01] LABS: Glucose,Whole Blood 103 mg/dL (70-110)
[2024-09-20 12:16] VITALS: BP 125/67; PULSE 76; TEMP 98.2
--- NOTE | 2024-09-20 12:47 | P.DS ---
Providers Date of admission: 09/18/24 11:35 Attending physician: Milton Jack MD Primary care physician: Dimas Catherine [facility] Course: Discharge Diagnosis: Chest pain, negative troponins HTN HLD Diabetes History of CVA Hospital Course: 89-year-old female with PMH of HTN, HLD, normal coronary arteries per cardiac cath 2020, statin intolerance, diabetes, history of CVA, who presented to the ED with chest pain radiating into her jaw shoulder, no associated SOB. Her troponin is negative, cardiology consulted, patient underwent Lexiscan stress test with no evidence of stress-induced ischemic changes, TTE revealed EF of 50%. Patient was cleared for discharge by cardiology, she remained pain-free at the time of discharge, patient will follow-up with her primary dry finisher Dr. Cancino. She was continued on her current cardiac medications. Patient seen and examined at bedside. Vital signs reviewed and stable. General: [nontoxic], [no distress], [appears at stated age] Derm: [warm], [dry] Head: [atraumatic], [normocephalic], [symmetric] Eyes: [EOMI], [no lid lag], [anicteric sclera] Mouth: [no lip lesion], [mucus membranes moist] Cardiovascular: [S1S2 reg], [no murmur] Lungs: [CTA bilateral], [no rhonchi, no rales] , [no accessory muscle use] Abdominal: [soft], [ nontender to palpation], [no guarding], [no appreciable organomegaly] Ext: [no gross muscle atrophy], [no edema], [no contractures] Neuro: [ CN II-XI grossly intact], [no focal neuro deficits] Psych: [Alert], [oriented], [appropriate affect] A total of 40 minutes of time were spent preparing this complex discharge summary. Patient was discharged on 09/20/2024 Plan - Discharge Summary Discharge Rx Participant: No New Discharge Prescriptions: New Atorvastatin [Lipitor] 80 mg PO HS #90 tab Continue metFORMIN HCL [Glucophage] 1,000 mg PO BID-W/MEALS Losartan [Cozaar] 25 mg PO DAILY Dulaglutide [Trulicity] 0.75 mg SQ TU Calcium Carbonate [Calcium] 600 mg PO DAILY Ascorbic Acid [Vitamin C] 1,000 mg PO DAILY Calcium/Magnesium Supplement 2 tsp PO DAILY Zinc Gluconate [Zinc] 50 mg PO DAILY Cinnamon Bark [Cinnamon] 1,000 mg PO DAILY Biotin 5,000 mcg PO DAILY Ubidecarenone [Coenzyme Q10] 200 mg PO DAILY Insulin Glargine,Hum.rec.anlog [Lantus Solostar Pen] 10 units SQ DAILY Aspirin 81 mg PO DAILY 21 Days #21 tab traMADol HCL 50 mg PO Q8H PRN PRN Reason: Pain Cholecalciferol (Vitamin D3) [Vitamin D3 (50 Mcg = 2000 Iu)] 50 mcg PO DAILY Discharge Medication List metFORMIN HCL [Glucophage] 1,000 mg PO BID-W/MEALS 02/26/19 [History] Ascorbic Acid [Vitamin C] 1,000 mg PO DAILY 09/30/23 [History] Calcium Carbonate [Calcium] 600 mg PO DAILY 09/30/23 [History] Dulaglutide [Trulicity] 0.75 mg SQ TU 09/30/23 [History] Insulin Glargine,Hum.rec.anlog [Lantus Solostar Pen] 10 units SQ DAILY 09/30/23 [History] Losartan [Cozaar] 25 mg PO DAILY 09/30/23 [History] Aspirin 81 mg PO DAILY 21 Days #21 tab 10/28/23 [Rx] Biotin 5,000 mcg PO DAILY 09/18/24 [History] Calcium/Magnesium Supplement 2 tsp PO DAILY 09/18/24 [History] Cholecalciferol (Vitamin D3) [Vitamin D3 (50 Mcg = 2000 Iu)] 50 mcg PO DAILY 09/18/24 [History] Cinnamon Bark [Cinnamon] 1,000 mg PO DAILY 09/18/24 [History] Ubidecarenone [Coenzyme Q10] 200 mg PO DAILY 09/18/24 [History] Zinc Gluconate [Zinc] 50 mg PO DAILY 09/18/24 [History] traMADol HCL 50 mg PO Q8H PRN 09/18/24 [History] Atorvastatin [Lipitor] 80 mg PO HS #90 tab 09/20/24 [Rx] Follow up Appointment(s)/Referral(s): Kenan Cancino MD [STAFF PHYSICIAN] - 09/27/24 10:30 am (Appointment will be at the main office.) Dimas Catherine DO [Primary Care Provider] - 1-2 days Patient Instructions/Handouts: DASH Eating Plan (DC) Activity/Diet/Wound Care/Special Instructions: Please, follow up with your primary care provider and dry finisher Discharge Disposition: HOME SELF-CARE
== END 2024-09-20 14:28 | disposition home or self-care (01) ==
LOC: EC 08:49 → 6NMEDSUR 11:35
PROVIDERS: ADMIT Internal Medicine; ATTEND Internal Medicine
DX: R07.2 Precordial pain (principal); I45.2 Bifascicular block; I10 Essential (primary) hypertension; E78.5 Hyperlipidemia, unspecified; J44.9 Chronic obstructive pulmonary disease, unspecified; E11.9 Type 2 diabetes mellitus without complications; R68.84 Jaw pain; M25.519 Pain in unspecified shoulder; R11.0 Nausea; R74.8 Abnormal levels of other serum enzymes; Z79.84 Long term (current) use of oral hypoglycemic drugs; Z79.85 Long-term (current) use of injectable non-insulin antidiabetic drugs; Z79.4 Long term (current) use of insulin; Z79.82 Long term (current) use of aspirin; Z79.899 Other long term (current) drug therapy; Z88.8 Allergy status to other drugs, medicaments and biological substances; Z87.891 Personal history of nicotine dependence; Z86.73 Personal history of transient ischemic attack (TIA), and cerebral infarction without residual deficits
CPT/HCPCS: 96361 ×4; 96372 ×3; 96360; 99285; 36415; 93005; 93308; 93017; 80061; 80053 ×2; 84443; 83690; 83735; 84484 ×2; 85025 ×2; 85610; 85730; 83036; 71046; 78452; G0378 ×3; A9500; J1644 ×3; J2785

== ENCOUNTER 2024-11-28 22:05 | Emergency (ER) | payer MEDICARE, OTHER ==
--- NOTE | 2024-11-28 22:11 | ED ---
Female Urogenital HPI - General Chief complaint: Urogenital Stated complaint: Poss UTI Time Seen by Provider: 11/28/24 22:10 Source: patient, RN notes reviewed, old records reviewed, Caregiver Mode of arrival: ambulatory Limitations: no limitations - History of Present Illness Initial comments: This is an 79-year-old female to the ER who presents today for evaluation of some pain and burning with urination. Patient states it started with feelings of increasing need to urinate a few days ago and symptoms have progressed. She does have back pain but has chronic back pain, daughter at bedside states she gave her a pain patch on the back of her back yesterday due to the back pain. Patient is without fever no nausea vomiting and no abdominal pain MD Complaint: dysuria -: days(s) Location: suprapubic Radiation: L flank Severity: mild Severity scale (1-10): 3 Quality: cramping Consistency: intermittent Improves with: none Worsens with: none Associated Symptoms: dysuria - Related Data Home Medications Medication Instructions Recorded Confirmed metFORMIN HCL [Glucophage] 1,000 mg PO BID-W/MEALS 02/26/19 09/18/24 Ascorbic Acid [Vitamin C] 1,000 mg PO DAILY 09/30/23 09/18/24 Calcium Carbonate [Calcium] 600 mg PO DAILY 09/30/23 09/18/24 Dulaglutide [Trulicity] 0.75 mg SQ TU 09/30/23 09/18/24 Insulin Glargine,Hum.rec.anlog 10 units SQ DAILY 09/30/23 09/18/24 [Lantus Solostar Pen] Losartan [Cozaar] 25 mg PO DAILY 09/30/23 09/18/24 Biotin 5,000 mcg PO DAILY 09/18/24 09/18/24 Calcium/Magnesium Supplement 2 tsp PO DAILY 09/18/24 09/18/24 Cholecalciferol (Vitamin D3) 50 mcg PO DAILY 09/18/24 09/18/24 [Vitamin D3 (50 Mcg = 2000 Iu)] Cinnamon Bark [Cinnamon] 1,000 mg PO DAILY 09/18/24 09/18/24 Ubidecarenone [Coenzyme Q10] 200 mg PO DAILY 09/18/24 09/18/24 Zinc Gluconate [Zinc] 50 mg PO DAILY 09/18/24 09/18/24 traMADol HCL 50 mg PO Q8H PRN 09/18/24 09/18/24 Previous Rx's Medication Instructions Recorded Aspirin 81 mg PO DAILY 21 Days #21 tab 10/28/23 Atorvastatin [Lipitor] 80 mg PO HS #90 tab 09/20/24 Allergies Allergy/AdvReac Type Severity Reaction Status Date / Time diphenhydramine AdvReac Hallucinati Verified 11/28/24 22:10 [From Benadryl] ons antihistamines AdvReac Hallucinati Uncoded 11/28/24 22:10 ons Review of Systems ROS Statement: Those systems with pertinent positive or pertinent negative responses have been documented in the HPI. ROS Other: All systems not noted in ROS Statement are negative. Past Medical History Past Medical History: Asthma, Cancer, CVA/TIA, Diabetes Mellitus, Eye Disorder, Osteoarthritis (OA) Additional Past Medical History / Comment(s): Hx cervical cancer 30 yrs ago with laser surgery. Diabetic retinopathy. Hx CVA - undiagnosed 2 yrs ago with poor balance. Hallucinations of "pink and blue dots" intermittently. History of Any Multi-Drug Resistant Organisms: None Reported Past Surgical History: Cholecystectomy, Hernia Repair, Joint Replacement Additional Past Surgical History / Comment(s): Bilateral knee replacements. Past Anesthesia/Blood Transfusion Reactions: No Reported Reaction Additional Past Anesthesia/Blood Transfusion Reaction / Comment(s): Patient to accept NO blood products at any time per buddhist preference. Past Psychological History: No Psychological Hx Reported Smoking Status: Former smoker Past Alcohol Use History: Occasional Past Drug Use History: None Reported - Past Family History Sister(s) Family Medical History: Cancer Additional Family Medical History / Comment(s): Breast cancer. General Exam Limitations: no limitations General appearance: alert, in no apparent distress Head exam: Present: atraumatic, normocephalic, normal inspection Eye exam: Present: normal appearance, PERRL, EOMI. Absent: scleral icterus, conjunctival injection, periorbital swelling ENT exam: Present: normal exam, mucous membranes moist Neck exam: Present: normal inspection. Absent: tenderness, meningismus, lymphadenopathy Respiratory exam: Present: normal lung sounds bilaterally. Absent: respiratory distress, wheezes, rales, rhonchi, stridor Cardiovascular Exam: Present: regular rate, normal rhythm, normal heart sounds. Absent: systolic murmur, diastolic murmur, rubs, gallop, clicks GI/Abdominal exam: Present: soft, normal bowel sounds. Absent: distended, tenderness, guarding, rebound, rigid Extremities exam: Present: normal inspection, full ROM, normal capillary refill. Absent: tenderness, pedal edema, joint swelling, calf tenderness Back exam: Present: normal inspection Neurological exam: Present: alert, oriented X3, CN II-XII intact Psychiatric exam: Present: normal affect, normal mood Skin exam: Present: warm, dry, intact, normal color. Absent: rash Course Vital Signs 11/28/24 22:07 Temperature 97.7 F Pulse Rate 67 Respiratory 16 Rate Blood Pressure 133/85 O2 Sat by Pulse 98 Oximetry - Reevaluation(s) Reevaluation #1: 11/28/24 22:48 Medical records reviewed Reevaluation #2: 11/28/24 22:48 Patient symptoms are unchanged Reevaluation #3: 11/28/24 22:49 Patient informed of results questions answered Reevaluation #4: Was pt. sent in by a medical professional or institution (, PA, SOFTWARE DEVELOPMENT LEADER, urgent care, hospital, or group home...) When possible be specific @ -no Did you speak to anyone other than the patient for history (EMS, parent, family, police, friend...)? What history was obtained from this source @ -no Did you review nursing and triage notes (agree or disagree)? Why? @ -agree Are old charts reviewed (outside hosp., previous admission, EMS record, old EKG, old radiological studies, urgent care reports/EKG's, group home records)? Report findings @ -yes Differential Diagnosis (chest pain, altered mental status, abdominal pain women, abdominal pain men, vaginal bleeding, weakness, fever, dyspnea, syncope, headache, dizziness, GI bleed, back pain, seizure, CVA, palpatations, mental health, musculoskeletal)? @ -prior EKG interpreted by me (3pts min.). @ -yes X-rays interpreted by me (1pt min.). @ -yes negative for acute disease CT interpreted by me (1pt min.). @ -no U/S interpreted by me (1pt. min.). @ -no What testing was considered but not performed or refused? (CT, X-rays, U/S, labs)? Why? @ -none What meds were considered but not given or refused? Why? @ -none Did you discuss the management of the patient with other professionals (professionals i.e. , PA, SOFTWARE DEVELOPMENT LEADER, lab, RT, psych nurse, psychotherapist social worker, parking control officer, teacher, bank officer, classification case manager)? Give summary @ -no Was smoking cessation discussed for >3mins.? @ -no Was critical care preformed (if so, how long)? @ -no Were there social determinants of health that impacted care today? How? (Homelessness, low income, unemployed, alcoholism, drug addiction, transportation, low edu. Level, literacy, decrease access to med. care, shelter, rehab)? @ -none Was there de-escalation of care discussed even if they declined (Discuss DNR or withdrawal of care, Hospice)? DNR status @ -no What co-morbidities impacted this encounter? (DM, HTN, Smoking, COPD, CAD, Cancer, CVA, ARF, Chemo, Hep., AIDS, mental health diagnosis, sleep apnea, morbid obesity)? @ -none Was patient admitted / discharged? Hospital course, mention meds given and route, prescriptions, significant lab abnormalities, going to OR and other pertinent info. @ - Undiagnosed new problem with uncertain prognosis? @ -no Drug Therapy requiring intensive monitoring for toxicity (Heparin, Nitro, Insulin, Cardizem)? @ -no Were any procedures done? @ -no Diagnosis/symptom? @ - Acute, or Chronic, or Acute on Chronic? @ -Acute Uncomplicated (without systemic symptoms) or Complicated (systemic symptoms)? @ -Complicated Side effects of treatment? @ -no Exacerbation, Progression, or Severe Exacerbation? @ -exacerbation Poses a threat to life or bodily function? How? (Chest pain, [place], NC, pneumonia, PE, COPD, DKA, ARF, appy, cholecystitis, CVA, Diverticulitis, Homicidal, Suicidal, threat to staff... and all critical care pts) @ -yes Medical Decision Making - Medical Decision Making 79 female to the ER for evaluation of UTI, increased urination and dysuria. Patient found to have UTI on urinalysis and can be discharged home on antibiotics Disposition Clinical Impression: Urinary tract infection Disposition: HOME SELF-CARE Condition: Good Instructions (If sedation given, give patient instructions): Urinary Tract Infection in Women (ED) Is patient prescribed a controlled substance at d/c from ED?: No Referrals: Whateley,Dimas, DO [Primary Care Provider] - 1-2 days Time of Disposition: 23:00
[2024-11-28 22:51] LABS: Amorphous Sediment,Urine Rare /hpf; Appearance,Urine Cloudy (Clear); Bacteria,Urine Occasional /hpf; Bilirubin,Urine Negative (Negative); Blood,Urine Negative (Negative); Color,Urine Yellow; Glucose,Urine (UA) Negative (Negative); Hyaline Casts,Urine 3 /lpf (0-2); Ketones,Urine Negative (Negative); Leukocyte Esterase,Urine Trace (Negative); Mucus,Urine Rare /hpf; Nitrite,Urine Negative (Negative); PH, Urine 5.5 (5.0-8.0); Protein,Urine Negative (Negative); RBC,Urine 1 /hpf (0-5); Specific Gravity,Urine 1.021 (1.001-1.035); Squamous Epithelial Cell,Urine 1 /hpf (0-4); Urobilinogen,Urine <2.0 mg/dL (<2.0); WBC,Urine 8 /hpf (0-5)
[2024-11-28] MEDS: CEPHALEXIN 500 MG CAP PO STA (23:37)
[2024-11-28] MEDS: CEPHALEXIN 500MG STARTER PACK 4 CAP BTL PO STA (23:38)
[2024-11-28 23:48] VITALS: BP 117/61; PULSE 69; RESP 18; TEMP 97.9
== END 2024-11-28 23:48 | disposition home or self-care (01) ==
LOC: EC 22:05
DX: N39.0 Urinary tract infection, site not specified (principal); Z86.73 Personal history of transient ischemic attack (TIA), and cerebral infarction without residual deficits; Z87.891 Personal history of nicotine dependence
CPT/HCPCS: 81001; 99283

== ENCOUNTER → 2024-12-28 | Outpatient (CLI) | payer MEDICARE, OTHER ==
--- NOTE | 2024-12-28 15:09 | US ---
EXAMINATION TYPE: US kidneys/renal and bladder DATE OF EXAM: 12/28/2024 COMPARISON: MRI kidney October 27, 2022 CLINICAL INDICATION: Female, 79 years old with history of R31.0 GROSS HEMATURIA; Hematuria TECHNIQUE: Grayscale imaging of the bilateral kidneys and urinary bladder: FINDINGS: EXAM MEASUREMENTS: Right Kidney: 7.6 x 4.0 x 3.3 cm Left Kidney: 9.8 x 5.1 x 4.2 cm Right Kidney: malpositioned. anechoic lesion = 1.6 x 1.7 x 1.5cm Left Kidney: no evidence of hydronephrosis Bladder: not fully distended Bilateral Jets seen: no There is no evidence for hydronephrosis at this point in time. No nephrolithiasis is seen. Persisten t low positioning right kidney with malrotation. This makes evaluation suboptimal. Persistent simple appearing 1.6 cm thin-walled cyst that does not require follow-up. The urinary bladder is anechoic. IMPRESSION: Source of hematuria not identified. Advise further investigation with CT urogram if sympt oms persist. [facility], , 12/28/2024 3:06 PM
== END | disposition home or self-care (01) ==
LOC: RADUSWWP 13:30
PROVIDERS: ATTEND Internal Medicine
DX: R31.0 Gross hematuria (principal)
CPT/HCPCS: 76770

== ENCOUNTER → 2025-02-07 | Outpatient (CLI) | payer MEDICARE, OTHER ==
--- NOTE | 2025-02-07 07:54 | MR ---
EXAMINATION TYPE: MR brain wo/w con DATE OF EXAM: 02/07/2025 COMPARISON: Prior MRI October 16, 2023 HISTORY: Hx of Tia TECHNIQUE: Multiplanar, multisequence images of the brain and brainstem is performed without and with IV contras t, utilizing 7 mL intravenous Gadobutrol . FINDINGS: Diffusion weighted images demonstrate no evidence of a recent infarct or other diffusion ab normality. There is mild ventricular and sulcal prominence redemonstrated. There are scattered foci of T2 hyperintensity seen throughout the superficial, deep, and periventricular white matter bilatera lly redemonstrated. Approximately 40-50 scattered lesions again seen. Midline structures redemonstrate normal morphology. The craniocervical junction appears within jase l limits. Post contrast images demonstrate no abnormal enhancement. The dural venous sinuses appear patent. Bilateral aphakia redemonstrated. Persistent mild/moderate mucosal thickening involving bilat eral ethmoid sinuses. IMPRESSION: 1. Persistent moderate nonspecific white matter changes likely favoring products of chronic small ves rolan ischemic change. No abnormal enhancement. 2. No MRI evidence for a recent infarct. [facility], , 02/07/2025 7:52 AM
== END | disposition home or self-care (01) ==
LOC: RADMRIMAIN 06:40
PROVIDERS: ATTEND Internal Medicine Clinical Cardiac Electrophysiology
DX: R90.82 White matter disease, unspecified (principal); Z86.73 Personal history of transient ischemic attack (TIA), and cerebral infarction without residual deficits
CPT/HCPCS: 70553; A9585